=== PATIENT | female | born 1990 | race Caucasian/White ===

== ENCOUNTER → 2017-08-31 14:41 | Outpatient (CLI) | payer OTHER, SELFPAY ==
--- NOTE | 2017-08-31 14:48 | US_ITS ---
US transvaginal HISTORY: ITS.REASON: PELVIC PAIN ORDERING PHYSICIAN: Madi Anderson MD PATIENT AGE: 27 years COMPARISON: None FINDINGS: There has been prior hysterectomy. The vaginal cuff has an unremarkable appearance. The left ovary is 2.5 x 1.5 cm and contains small follicles measuring up to 6 mm. The right ovary is 3 x 1.8 cm also containing small follicles measuring up to 9 mm. No pelvic fluid evident. IMPRESSION: Bilateral ovarian follicles, prior hysterectomy
== END ==
PROVIDERS: Family Provider Nurse Practitioner Family; Visit Provider Obstetrics & Gynecology
DX: R10.2 Pelvic and perineal pain (principal)
CPT/HCPCS: 76830

== ENCOUNTER → 2017-09-17 11:01 | Outpatient (CLI) | payer OTHER, SELFPAY ==
[2017-09-17 11:04] LABS: Microscopic, Urine URINE MICROSCOPIC (MICROSCOPIC)
[2017-09-17 12:09] LABS: Basophils % 0.6 % (0.1-2.0); Eosinophils # 0.1 K/mm3 (0.0-0.4); Eosinophils % 1.3 % (0.1-12.0); Hematocrit 46.7 % (37.0-47.0); Hemoglobin 15.7 g/dL (12.2-16.2); Lymphocytes # 2.3 K/mm3 (0.7-4.5); Lymphocytes % 42.5 K/mm3 (10-50); Mean Corpuscular HGB Conc 33.6 g/dL (31.8-35.4); Mean Corpuscular Hemoglobin 29.2 pg (27.0-31.2); Mean Corpuscular Volume 87.1 fl (81-99); Mean Platelet Volume 8.8 fl (7.4-10.4); Monocytes # 0.3 K/mm3 (0.1-1.0); Monocytes % 4.6 % (1.7-9.3); Neutrophils # 2.7 K/mm3 (1.8-7.8); Platelet Count 202 K/mm3 (142-424); Red Blood Count 5.36 M/mm3 (4.20-5.40); Red Cell Distribution Width 13.1 % (11.5-17.5); White Blood Count 5.3 K/mm3 (4.8-10.8)
[2017-09-17 13:07] LABS: Appearance,Urine CLEAR (Clear); Bilirubin,Urine Negative (Negative); Blood, Urine Negative (Negative); Color,Urine YELLOW (Yellow); Glucose,Urine (UA) 3+ (Negative); Ketones,Urine 1+ (Negative); Leukocyte Esterase,Urine Negative (Negative); Nitrate,Urine Negative (Negative); Protein,Urine Negative (Negative); Specific Gravity, Urine <= 1.005 (1.005-1.030); Urobilinogen,Urine 0.2 EU/dl (0.2)
[2017-09-17 13:13] LABS: Alanine Aminotransferase 20 U/L (12-78); Albumin Level 3.5 gm/dL (3.4-5.0); Albumin/Globulin Ratio 1.3 (1.1-1.8); Alkaline Phosphatase 67 U/L (46-116); Anion Gap 13.1 mEq/L (5-15); Aspartate Amino Transferase 14 U/L (15-37); Bilirubin,Total 0.5 mg/dL (0.2-1.0); Blood Urea Nitrogen 7 mg/dL (7-18); Calcium 8.6 mg/dL (8.5-10.1); Carbon Dioxide 27 mmol/L (21.0-32.0); Chloride 100 mmol/L (98-107); Creatinine,Serum 0.75 mg/dL (0.55-1.02); Estimated Glomerular Filt Rate 93 ml/min (>60); GFR (African American) 112 ML/MIN (>60); Globulin 2.6 gm/dl (1.3-3.2); Potassium 4.1 mmoL/L (3.5-5.1); Sodium 136 mmol/L (136-145); Total Protein,Serum 6.1 gm/dL (6.4-8.2)
[2017-09-17 13:16] LABS: Glucose 494 mg/dL (74-106)
[2017-09-17 13:55] LABS: Bacteria,Urine Trace /lpf
[2017-09-17 15:38] LABS: Hemoglobin A1C 10.4 % (0.0-7.0)
== END ==
PROVIDERS: PCP Nurse Practitioner Family; Visit Provider Obstetrics & Gynecology
DX: E10.9 Type 1 diabetes mellitus without complications (principal); Z01.812 Encounter for preprocedural laboratory examination; R10.2 Pelvic and perineal pain
CPT/HCPCS: 36415; 80053; 81001; 83036; 85025

== ENCOUNTER → 2017-10-07 12:57 | Outpatient (CLI) | payer OTHER, SELFPAY ==
--- NOTE | 2017-10-07 12:58 | CA_ITS ---
PROCEDURE: 2-D M-mode and color Doppler study INDICATIONS FOR THE TEST: Chest painX COPD Heart Murmur Tobacco SmokingX Palpitations Fatigue Syncope Edema Hypertension Diabetes Mellitus Rheumatic Fever SOB MOCK Obesity Hyperlipidemia Family History HD Additional History PE PATIENT INFORMATION HEIGHT: 67 WEIGHT:123 GENDER: Female B/P:130/70 2-D/M-MODE INTERPRETATION: 2-D MEASUREMENTS OBSERVED VALUES IN CMS Right Ventricular Dimension (RVDd) 1.2 Interventricular Septum (Thickness)(IVsd) .6 Left Ventricular Internal Dimensions(LVIDd) 4.2 Left Ventricular Posterior Wall (Thickness)(LVPWd) .7 Aortic Root 1.9 Aortic Cusp Separation .8 Left Atrial Dimensions (LAD) 1.9 2D 1. Left atrium is normal size, left ventricle is normal size, there is no concentric left ventricular hypertrophy, visually estimated ejection fraction 55% with no obvious regional wall motion abnormality. 2. The right ventricular normal size and contractility. 3. The aortic, mitral and tricuspid valve are grossly normal. 4. The pulmonic valve is poorly visualized. 5. Trivial pericardial effusion noted. DOPPLER INTERROGATION: Doppler interrogation of the aortic, mitral and tricuspid valve reveals presence of trace mitral and tricuspid regurgitation, tricuspid regurgitant jet velocity insufficient for calculation of the right ventricular systolic pressure, diastolic parameters are within normal range. CONCLUSION: 1. Normal left ventricular size, preserved left ventricular systolic function, visually estimated ejection fraction 55% with no obvious regional wall motion abnormality, diastolic parameters are within normal range. 2. Trace mitral and tricuspid regurgitation 3. Trivial pericardial effusion noted.
--- NOTE | 2017-10-07 12:59 | NVE_ITS ---
Venous Exam Indications: 415.19 Other pulmonary embolism and infarction. IMPRESSIONS 1. There is no evidence of significant Reflux. 2. Deep vein thrombosis involving the right soleal History: PMH: Deep vein thrombosis of right calf 2 month history Complete lower extremity venous duplex evaluation. Doppler flow study including spectral analysis, color and muhammad scale imaging. Location: Vascular laboratory. Patient status: Outpatient. CRITICAL FINDINGS - Reported to: BENNIE - Read back and verified. - 10/07/17 - 1400 - Resolving DVT RIGHT CALF Tables: Venous flow and imaging: + + + + Location Overall Flow properties + + + + Right common femoral Patent Normal phasicity; spontaneous; normal augmentation; compressible + + + + Right saphenofemoral Patent Compressible junction + + + + Right profunda femoral Patent Compressible + + + + Right femoral Patent Normal phasicity; spontaneous; normal augmentation; compressible; no reflux + + + + Right greater saphenous Patent Normal phasicity; spontaneous; normal augmentation; compressible + + + + Right popliteal Patent Normal phasicity; spontaneous; normal augmentation; compressible + + + + Right posterior tibial Patent Compressible + + + + Right peroneal Patent Compressible + + + + Right gastrocnemius Patent Compressible + + + + Right soleal Partially occluded Partially compressible + + + + Left common femoral Patent Normal phasicity; spontaneous; normal augmentation;
--- NOTE | 2017-10-07 14:08 | US_ITS ---
US retroperitoneal comp HISTORY: ITS.REASON: CHEST PAIN,ALLI FACTOR 5 DEFICIENCY,DARIA SYNDROME ORDERING PHYSICIAN: Keyon Schmitt MD PATIENT AGE: 27 years COMPARISON: None FINDINGS: RIGHT KIDNEY:Unremarkable. Normal size and echogenicity. No hydronephrosis. 11 x 4 x 6 cm LEFT KIDNEY:Unremarkable. No hydronephrosis. Normal size and echogenicity. 10 x 5 x 5 cm OTHER FINDINGS: No other pertinent findings IMPRESSION: Negative bilateral renal ultrasound
== END ==
PROVIDERS: Family Provider Nurse Practitioner Family; PCP Nurse Practitioner Family; Visit Provider Internal Medicine
DX: D68.2 Hereditary deficiency of other clotting factors (principal); E13.10 Other specified diabetes mellitus with ketoacidosis without coma; Q87.89 Other specified congenital malformation syndromes, not elsewhere classified; Z72.0 Tobacco use; Z79.01 Long term (current) use of anticoagulants
CPT/HCPCS: 76770; 93306; 93970

== ENCOUNTER 2017-10-11 20:59 | Observation (INO) | payer OTHER, SELFPAY ==
[2017-10-11 21:11] VITALS: BP 126/83; PULSE 107; RESP 18; TEMP 36.6; O2SAT 97; BMI 19.3
[2017-10-11 21:44] LABS: Microscopic, Urine URINE MICROSCOPIC (MICROSCOPIC)
[2017-10-11 21:47] LABS: Appearance,Urine CLEAR (Clear); Bilirubin,Urine Negative (Negative); Blood, Urine 3+ (Negative); Color,Urine YELLOW (Yellow); Glucose,Urine (UA) 3+ (Negative); Ketones,Urine 3+ (Negative); Leukocyte Esterase,Urine Negative (Negative); Nitrate,Urine Negative (Negative); PH,Urine 5.5 (5.0-8.5); Protein,Urine Negative (Negative); Urobilinogen,Urine 0.2 EU/dl (0.2)
[2017-10-11 22:01] LABS: Bacteria,Urine Trace /lpf
[2017-10-11 22:07] LABS: Oxygen ROOM AIR %; Source R BRACHIAL
[2017-10-11 22:09] LABS: Basophils % 0.3 % (0.1-2.0); Eosinophils # 0.1 K/mm3 (0.0-0.4); Hemoglobin 17.6 g/dL (12.2-16.2); Lymphocytes # 1.8 K/mm3 (0.7-4.5); Lymphocytes % 23.3 K/mm3 (10-50); Mean Corpuscular HGB Conc 34.5 g/dL (31.8-35.4); Mean Corpuscular Hemoglobin 29.4 pg (27.0-31.2); Mean Corpuscular Volume 85.4 fl (81-99); Monocytes # 0.4 K/mm3 (0.1-1.0); Monocytes % 5.5 % (1.7-9.3); Neutrophils # 5.3 K/mm3 (1.8-7.8); Neutrophils % 69.9 % (37.0-80.0); Platelet Count 308 K/mm3 (142-424); Red Blood Count 5.98 M/mm3 (4.20-5.40); Red Cell Distribution Width 12.4 % (11.5-17.5); White Blood Count 7.6 K/mm3 (4.8-10.8)
[2017-10-11 22:11] LABS: ABG Base Excess -7.3 mmol/L (-2.4-2.3); ABG HCO3 17.6 mmhg (22.0-26.0); ABG Oxygen Saturation 96 % (90-100); ABG PCO2 29.4 mmhg (35.0-45.0); ABG PO2 79.2 mmhg (80-100); ABG TCO2 18.5 mmhg (23-27)
--- NOTE | 2017-10-11 22:20 | HMH.EDSOB ---
ED Disposition Clinical Impression: DKA (diabetic ketoacidoses) Qualifiers: Diabetes mellitus type: type 1 Diabetes mellitus complication detail: without coma Qualified Code(s): E10.10 - Type 1 diabetes mellitus with ketoacidosis without coma Disposition: Admitted As Inpatient Condition on Discharge: Good Referrals: Tika Dhillon APRN [Primary Care Provider] - - Critical Care Critical Care Time: No Attestation: On 10/11/17, the high probability of a clinically significant, sudden or life threatening deterioration of the following system(s) required my full and direct attention, intervention and personal management. The time I documented below is in addition to time spent performing reported procedures but includes the following listed in this critical care notation. Medical Decision Making - Medical Records Medical records reviewed: Yes: I reviewed the patient's medical records. Vital Signs: 10/11/17 21:11 Temperature 97.8 F Temperature Source Oral Pulse Rate [Right Radial] 107 H Respiratory Rate 18 Blood Pressure [Right Arm] 126/83 Blood Pressure Mean [Right Arm] 97 Blood Pressure Source [Right Arm] Automatic Cuff Blood Pressure Position [Right Arm] Sitting 02 Sat by Pulse Oximetry 97 Oxygen Delivery Method Room Air - Lab Data Lab results reviewed: Yes: I reviewed the patient's lab results. Lab Results 10/11/17 20:51: Troponin I < 0.02 10/11/17 21:38: Urine Color Yellow, Urine Appearance Clear, Urine pH 5.5, Ur Specific [place] 1.010, Urine Protein Negative, Urine Glucose (UA) 3+, Urine Ketones 3+, Urine Blood 3+, Urine Nitrate Negative, Urine Bilirubin Negative, Urine Urobilinogen 0.2, Ur Leukocyte Esterase Negative, Urine RBC 5-10, Urine WBC 3-5, Ur Squamous Epith Cells None, Urine Bacteria Trace 10/11/17 21:50: WBC 7.6, RBC 5.98 H, Hgb 17.6 H, Hct 51.0 H, MCV 85.4, MCH 29.4, MCHC 34.5, RDW 12.4, Plt Count 308, MPV 9.0, Neut % (Auto) 69.9, Lymph % (Auto) 23.3, [place] % (Auto) 5.5, Eos % (Auto) 1.0, Baso % (Auto) 0.3, Neut # (Auto) 5.3, Lymph # (Auto) 1.8, [place] # (Auto) 0.4, Eos # (Auto) 0.1, Baso # (Auto) 0.0 10/11/17 21:50: PT 9.9, INR 0.92, APTT 22.7 L 10/11/17 21:50: Sodium 129 L, Potassium 4.6, Chloride 90 L, Carbon Dioxide 18 L, Anion Gap 25.6 H, BUN 13, Creatinine 1.07 H, Estimated Creat Clear 70, Estimated GFR 62, Est GFR ( Amer) 74, Glucose 781 H*, Calcium 9.9, Total Bilirubin 0.7, AST 12 L, ALT 29, Alkaline Phosphatase 103, Total Protein 7.9 D, Albumin 4.2, Globulin 3.7 H, Albumin/Globulin Ratio 1.1, Acetone Level Small 10/11/17 21:50: Lactic Acid 2.4 H 10/11/17 22:00: Specimen Source R brachial, O2 % Room air, ABG pH 7.39, Oscar Test Not applicable Result diagrams: 10/11/17 21:50 10/11/17 21:50 Orders (Tests/Meds): ED MEDICATIONS Generic Name Dose Route Start Last Admin Trade Name Freq PRN Reason Stop Dose Admin Lactated Ringer's 1,000 mls @ 999 mls/hr 10/11/17 22:30 10/11/17 22:29 Lactated Ringer's 1000 Ml Bag IV 10/11/17 23:30 999 mls/hr .Q1H1M KAREEM Administration Discontinued Medications Generic Name Dose Route Start Last Admin Trade Name Freq PRN Reason Stop Dose Admin Sodium Chloride 1,000 mls @ 999 mls/hr 10/11/17 22:30 Sod Chlor 0.9% 1000ml Bag IV 10/11/17 23:30 .Q1H1M KAREEM Insulin Human Regular 6 unit 10/11/17 22:48 10/11/17 22:54 Humulin R Insulin 100 Units/Ml 10ml Vial 0.1 unit/kg (6 unit) 10/11/17 22:49 6 unit IV Administration ONCE ONE ORDERS Category Date Time Status fingerstick glucose [POC Glucose,Bedside] Stat Lab 10/11/17 21:30 Ordered Blood Culture Stat Micro 10/11/17 21:50 Received ABG [Arterial Blood Gas] Stat RT 10/11/17 21:31 Ordered Arterial Blood Gas Routine RT 10/11/17 22:00 Results - Physician Consults Physician Consulted: [email or web address] Reason -: Admission - Jasbir Inquiry Pt receiving controlled substance: No Resp/SOB HPI - General Chief Complaint: Shortness of Breath/Dyspnea Stat
[2017-10-11 22:24] LABS: Lactic Acid 2.4 mmol/L (0.4-2.0)
[2017-10-11 22:30] LABS: Acetone, Serum (Rapid) Small (None Detect)
[2017-10-11 22:38] LABS: Alanine Aminotransferase 29 U/L (12-78); Albumin Level 4.2 gm/dL (3.4-5.0); Albumin/Globulin Ratio 1.1 (1.1-1.8); Alkaline Phosphatase 103 U/L (46-116); Anion Gap 25.6 mEq/L (5-15); Aspartate Amino Transferase 12 U/L (15-37); Bilirubin,Total 0.7 mg/dL (0.2-1.0); Blood Urea Nitrogen 13 mg/dL (7-18); Calcium 9.9 mg/dL (8.5-10.1); Carbon Dioxide 18 mmol/L (21.0-32.0); Chloride 90 mmol/L (98-107); Creatinine Clearance Estimated 70 mL/min (0-300); Creatinine,Serum 1.07 mg/dL (0.55-1.02); Estimated Glomerular Filt Rate 62 ml/min (>60); GFR (African American) 74 ML/MIN (>60); Globulin 3.7 gm/dl (1.3-3.2); Potassium 4.6 mmoL/L (3.5-5.1); Sodium 129 mmol/L (136-145); Total Protein,Serum 7.9 gm/dL (6.4-8.2)
[2017-10-11 22:41] LABS: Glucose 781 mg/dL (74-106)
[2017-10-11 22:41] LABS: Troponin I < 0.02 ng/ml (0.00-0.06)
[2017-10-11 22:52] LABS: Activated Partial Thrombo Time 22.7 seconds (23.6-34.0); INR 0.92 (0.9-1.1); Prothrombin Time 9.9 seconds (9.4-11.8)
--- NOTE | 2017-10-11 23:20 | XR_ITS ---
XR chest portable HISTORY: Shortness of breath ITS.REASON: sob ORDERING PHYSICIAN: Joe Lopes MD PATIENT AGE: 27 years COMPARISON: 03/22/2017 FINDINGS: The cardiomediastinal silhouette and pulmonary vascularity are within normal limits. The lungs are clear without infiltrates, suspicious nodules, or pleural effusions. No acute bony abnormalities. IMPRESSION: Negative chest, no acute finding
[2017-10-12] VITALS (11 sets, daily range): BP systolic 92–133; BP diastolic 54–79; PULSE 60–105; RESP 16–18; TEMP 36.4–36.8; O2SAT 93–97; BMI 19.3
[2017-10-12 02:02] LABS: Reflex Lactic Add Lactic Reflex
[2017-10-12 02:36] LABS: Glucose,Random 464 mg/dL (70-110)
[2017-10-12 03:50] LABS: Lactic Acid Follow Up (RFLX 1) 2.4 (0.4-2.0)
[2017-10-12 04:24] LABS: Reflex Lactic (2 hrs) Add Lactic Reflex
--- NOTE | 2017-10-12 05:15 | PC.NURSE ---
Patient resting in bed. Hourly fingersticks being completed. Results trending down. Insulin drip at 4ml/hr. A&O x3. No sign or symptoms of distress noted. Denies any discomfort at this time. No complaints voiced at this time.
[2017-10-12 05:17] LABS: Basophils % 0.3 % (0.1-2.0); Eosinophils # 0.1 K/mm3 (0.0-0.4); Eosinophils % 1.5 % (0.1-12.0); Hematocrit 42.8 % (37.0-47.0); Lymphocytes % 38.1 K/mm3 (10-50); Mean Corpuscular HGB Conc 35.5 g/dL (31.8-35.4); Mean Corpuscular Hemoglobin 29.3 pg (27.0-31.2); Mean Corpuscular Volume 82.4 fl (81-99); Mean Platelet Volume 8.1 fl (7.4-10.4); Monocytes # 0.4 K/mm3 (0.1-1.0); Monocytes % 5.4 % (1.7-9.3); Neutrophils # 4.3 K/mm3 (1.8-7.8); Neutrophils % 54.7 % (37.0-80.0); Platelet Count 277 K/mm3 (142-424); Red Blood Count 5.19 M/mm3 (4.20-5.40); Red Cell Distribution Width 12.2 % (11.5-17.5); White Blood Count 7.8 K/mm3 (4.8-10.8)
[2017-10-12 05:51] LABS: Hemoglobin 15.3 g/dL (12.2-16.2)
[2017-10-12 06:04] LABS: Anion Gap 11.3 mEq/L (5-15); Blood Urea Nitrogen 10 mg/dL (7-18); Carbon Dioxide 28 mmol/L (21.0-32.0); Chloride 102 mmol/L (98-107); Creatinine Clearance Estimated 103 mL/min (0-300); Creatinine,Serum 0.72 mg/dL (0.55-1.02); Estimated Glomerular Filt Rate 97 ml/min (>60); GFR (African American) 118 ML/MIN (>60); Glucose 323 mg/dL (74-106); Potassium 3.3 mmoL/L (3.5-5.1); Sodium 138 mmol/L (136-145)
[2017-10-12 06:15] LABS: Acetone, Serum (Rapid) None Detected (None Detect)
--- NOTE | 2017-10-12 07:12 | PC.NURSE ---
Notified Dr. Lopes of serum acetone level being negative.
--- NOTE | 2017-10-12 09:21 | HMH.HP ---
*Admission Date: 10/12/17 *Chief complaint: elevated glucose and shortness of breath *History of present illness: 27 year old female with a history of type 1 diabetes presented to the ED with elevated glucose and shortness of breath. In the ED, her glucose was >700. Serum acetone was positive. She was started on IVF's and insulin gtt per protocol. Patient was admitted for IV insulin and further evaluation. Serum acetone was negative this morning. Patient reports an episode of vomiting yesterday and diarrhea through the night. No fevers. No abdominal pain. [facility] History I have reviewed the patient's past medical history: Yes Medical History: Reports:: Deep Vein Thrombosis, Diabetes Mellitus Type 1 Denies:: Cancer, Diabetes Mellitus Type 2, MRSA Other Surgeries: Yes: Hysterectomy-Partial, Other Amputation: No Fractures: No - *Social History Educational Level: Completed High School Smoking Status: Current every day smoker Tobacco Type: cigarettes Alcohol Intake: never Substance Use Type: denies use Occupational Status: unemployed Housing: house Household Members: spouse, children - Psychiatric History Expresses thoughts of harming self/others: None Suicide Plan Description: No Plan *Family Hx:: Cancer, Hypertension, Diabetes Review of Systems - Review of Systems Review of systems:: pertinent systems reviewed and negative unless documented below - Constitutional Reports weakness - *Respiratory Reports shortness of breath - *Gastrointestinal Reports loose stools, Reports vomiting - *Neurologic Denies seizure-like activity - Endocrine Comments: elevated blood sugar Meds Home Medications Medication Instructions Recorded Confirmed Type albuterol sulfate HFA 90 1 puff INHALATION Q6H 09/09/17 10/11/17 History mcg/actuation aerosol inhaler gabapentin 600 mg tablet 600 mg PO TID 09/09/17 10/11/17 History hydroxyzine pamoate 25 mg capsule 25 mg PO QHS PRN cap 09/09/17 10/11/17 History insulin glargine (U-100) 100 1 unit SUB-Q QDAY 09/09/17 10/11/17 History unit/mL (3 mL) subcutaneous pen insulin lispro protamine-lispro 10 unit SUB-Q QDAY 09/09/17 10/11/17 History 100 unit/mL (75-25) subcutaneous susp paroxetine 30 mg tablet 30 mg PO QDAY 09/09/17 10/11/17 History quetiapine ER 50 mg 150 mg PO QDAY 09/09/17 10/11/17 History tablet,extended release 24 hr sumatriptan 25 mg tablet 25 mg PO ONCE 09/09/17 10/11/17 History Allergies Allergy/AdvReac Type Severity Reaction Status Date / Time tramadol [TRAMADOL] Allergy Severe Swelling Verified 10/11/17 21:19 of Lip/Tongue/Throat butalbital [BUTALBITAL] Allergy Unknown Verified 10/11/17 21:19 caffeine [From FIORICET] Allergy Unknown Verified 10/11/17 21:19 codeine [CODEINE] Allergy Unknown Verified 10/11/17 21:19 iodine [IODINE] Allergy Unknown Verified 10/11/17 21:19 ketorolac [KETOROLAC] Allergy Unknown Verified 10/11/17 21:19 Penicillins [PENICILLINS] Allergy Unknown Verified 10/11/17 21:19 povidone-iodine Allergy Unknown Verified 10/11/17 21:19 [From BETADINE] soap [From BETADINE] Allergy Unknown Verified 10/11/17 21:19 ADHESIVES Allergy Unknown Uncoded 08/10/17 14:51 Exam Vital signs and Labs for Last 24 Hours: Temp Pulse Resp BP Pulse Ox 98.3 F 69 16 92/70 96 10/12/17 08:00 10/12/17 08:03 10/12/17 08:03 10/12/17 08:03 10/12/17 08:03 Laboratory Results - last 24 hr 10/12/17 02:15: Lactic Acid Fup @ 4Hr 2.4 H 10/12/17 02:15: Random Glucose 464 H 10/12/17 04:30: WBC 7.8, RBC 5.19, Hgb 15.3 D, Hct 42.8, MCV 82.4, MCH 29.3, MCHC 35.5 H, RDW 12.2, Plt Count 277, MPV 8.1, Neut % (Auto) 54.7, Lymph % (Auto) 38.1, [place] % (Auto) 5.4, Eos % (Auto) 1.5, Baso % (Auto) 0.3, Neut # (Auto) 4.3, Lymph # (Auto) 3.0, [place] # (Auto) 0.4, Eos # (Auto) 0.1, Baso # (Auto) 0.0 10/12/17 04:30: Sodium 138, Potassium 3.3 L D, Chloride 102, Carbon Dioxide 28 D, Anion Gap 11.3, BUN 10, Creatinine 0.72 D, Estimated Cr
--- NOTE | 2017-10-12 09:25 | P.HP_ITS ---
*Admission Date: 10/12/17 *Chief complaint: elevated glucose and shortness of breath *History of present illness: 27 year old female with a history of type 1 diabetes presented to the ED with elevated glucose and shortness of breath. In the ED, her glucose was >700. Serum acetone was positive. She was started on IVF's and insulin gtt per protocol. Patient was admitted for IV insulin and further evaluation. Serum acetone was negative this morning. Patient reports an episode of vomiting yesterday and diarrhea through the night. No fevers. No abdominal pain. [facility] History I have reviewed the patient's past medical history: Yes Medical History: Reports:: Deep Vein Thrombosis, Diabetes Mellitus Type 1 Denies:: Cancer, Diabetes Mellitus Type 2, MRSA Other Surgeries: Yes: Hysterectomy-Partial, Other Amputation: No Fractures: No - *Social History Educational Level: Completed High School Smoking Status: Current every day smoker Tobacco Type: cigarettes Alcohol Intake: never Substance Use Type: denies use Occupational Status: unemployed Housing: house Household Members: spouse, children - Psychiatric History Expresses thoughts of harming self/others: None Suicide Plan Description: No Plan *Family Hx:: Cancer, Hypertension, Diabetes Review of Systems - Review of Systems Review of systems:: pertinent systems reviewed and negative unless documented below - Constitutional Reports weakness - *Respiratory Reports shortness of breath - *Gastrointestinal Reports loose stools, Reports vomiting - *Neurologic Denies seizure-like activity - Endocrine Comments: elevated blood sugar Meds Home Medications Medication Instructions Recorded Confirmed Type albuterol sulfate HFA 90 1 puff INHALATION Q6H 09/09/17 10/11/17 History mcg/actuation aerosol inhaler gabapentin 600 mg tablet 600 mg PO TID 09/09/17 10/11/17 History hydroxyzine pamoate 25 mg capsule 25 mg PO QHS PRN cap 09/09/17 10/11/17 History insulin glargine (U-100) 100 1 unit SUB-Q QDAY 09/09/17 10/11/17 History unit/mL (3 mL) subcutaneous pen insulin lispro protamine-lispro 10 unit SUB-Q QDAY 09/09/17 10/11/17 History 100 unit/mL (75-25) subcutaneous susp paroxetine 30 mg tablet 30 mg PO QDAY 09/09/17 10/11/17 History quetiapine ER 50 mg 150 mg PO QDAY 09/09/17 10/11/17 History tablet,extended release 24 hr sumatriptan 25 mg tablet 25 mg PO ONCE 09/09/17 10/11/17 History Allergies Allergy/AdvReac Type Severity Reaction Status Date / Time tramadol [TRAMADOL] Allergy Severe Swelling Verified 10/11/17 21:19 of Lip/Tongue/Throat butalbital [BUTALBITAL] Allergy Unknown Verified 10/11/17 21:19 caffeine [From FIORICET] Allergy Unknown Verified 10/11/17 21:19 codeine [CODEINE] Allergy Unknown Verified 10/11/17 21:19 iodine [IODINE] Allergy Unknown Verified 10/11/17 21:19 ketorolac [KETOROLAC] Allergy Unknown Verified 10/11/17 21:19 Penicillins [PENICILLINS] Allergy Unknown Verified 10/11/17 21:19 povidone-iodine Allergy Unknown Verified 10/11/17 21:19 [From BETADINE] soap [From BETADINE] Allergy Unknown Verified 10/11/17 21:19 ADHESIVES Allergy Unknown Uncoded 08/10/17 14:51 Exam Vital signs and Labs for Last 24 Hours: Temp Pulse Resp BP Pulse Ox 98.3 F 69 16 92/70 96 10/12/17 08:00
--- NOTE | 2017-10-12 10:11 | P.CONPHA_ITS ---
[facility] Pharmacy VTE Monitoring - Patient Demographics Admission date: 10/12/17 Report Date: 10/12/17 Time: 10:10 Allergies/Adverse Reactions: Patient Allergies tramadol [TRAMADOL] Allergy (Severe, Verified 10/11/17 21:19) Swelling of Lip/Tongue/Throat butalbital [BUTALBITAL] Allergy (Unknown, Verified 10/11/17 21:19) caffeine [From FIORICET] Allergy (Unknown, Verified 10/11/17 21:19) codeine [CODEINE] Allergy (Unknown, Verified 10/11/17 21:) iodine [IODINE] Allergy (Unknown, Verified 10/11/17 21:) ketorolac [KETOROLAC] Allergy (Unknown, Verified 10/11/17 21:) Penicillins [PENICILLINS] Allergy (Unknown, Verified 10/11/17:) povidone-iodine [From BETADINE] Allergy (Unknown, Verified 10/11/17 21:) soap [From BETADINE] Allergy (Unknown, Verified 10/11/17:) ADHESIVES Allergy (Unknown, Uncoded 08/10/17 14:51) Height: 1.7 m Weight: 51.483 kg Patient Problems: Current Active Problems DKA (diabetic ketoacidoses) (Acute) - VTE Risk Labs: VTE Related Lab Results Hgb 15.3 g/dL (12.2-16.2) D 10/12/17 04:30 Hct 42.8 % (37.0-47.0) 10/12/17 04:30 Plt Count 277 K/mm3 (142-424) 10/12/17 04:30 PT 9.9 seconds (9.4-11.8) 10/11/17 21:50 INR 0.92 (0.9-1.1) 10/11/17 21:50 APTT 22.7 seconds (23.6-34.0) L 10/11/17 21:50 BUN 10 mg/dL (7-18) 10/12/17 04:30 Creatinine 0.72 mg/dL (0.55-1.02) D 10/12/17 04:30 Estimated Creat Clear 103 mL/min (0-300) 10/12/17 04:30 VTE Score: 1 VTE Risk Level: Very Low Risk Clinical Trial Participant: No - Prophylaxis VTE Prophylaxis Ordered?: Yes Types of VTE Prophylaxis: TEDS Knee High
--- NOTE | 2017-10-12 18:42 | PC.NURSE ---
PATIENT IS RESTING IN BED AT THIS TIME. SHE C/O PAIN IN HER HEAD AND BACK 8/10 AT ALL TIMES. SHE IS ALSO C/O NAUSEA UNRELIEVED BY ZOFRAN GIVEN PER MAR. BLOOD SUGARS ARE STILL RUNNING EXTREMELY HIGH 350-420 WITH HIGH INTENSITY SSI COVERAGE. LUNGS ARE CTA. BS ARE ACTIVE. CALL LIGHT WITHIN REACH WILL CONTINUE TO MONITOR
[2017-10-13 04:00] VITALS: BP 107/59; PULSE 62; RESP 17; TEMP 36.7; O2SAT 98
--- NOTE | 2017-10-13 04:30 | PC.NURSE ---
PT REQUESTED PHENERGAN FOR NAUSEA EARLY IN SHIFT, ASKED ABOUT HER COUMADIN. Dr. TAVERA NOTIFED OF BOTH. NO NEW ORDERS RECEIVED. PT HAS SLEPT.
[2017-10-13 07:12] LABS: ABG PH 7.39 mmol/L (7.35-7.45)
[2017-10-13 07:17] LABS: Anion Gap 14.1 mEq/L (5-15); Blood Urea Nitrogen 9 mg/dL (7-18); Carbon Dioxide 24 mmol/L (21.0-32.0); Chloride 105 mmol/L (98-107); Creatinine Clearance Estimated 107 mL/min (0-300); Creatinine,Serum 0.64 mg/dL (0.55-1.02); Estimated Glomerular Filt Rate 111 ml/min (>60); GFR (African American) 135 ML/MIN (>60); Glucose 381 mg/dL (74-106); Potassium 4.1 mmoL/L (3.5-5.1); Sodium 139 mmol/L (136-145)
[2017-10-13 07:57] VITALS: BP 115/66; PULSE 74; RESP 16; TEMP 36.6; O2SAT 95
--- NOTE | 2017-10-13 08:19 | HMH.DCSUM ---
General - General Admission date: 10/12/17 Discharge date: 10/13/17 HPI HPI: 27 year old female with a history of type 1 diabetes presented to the ED with elevated glucose and shortness of breath. In the ED, her glucose was >700. Serum acetone was positive. She was started on IVF's and insulin gtt per protocol. Patient was admitted for IV insulin and further evaluation. Serum acetone was negative this morning. Patient reports an episode of vomiting yesterday and diarrhea through the night. No fevers. No abdominal pain. Objective Vital signs: Temp Pulse Resp BP Pulse Ox 97.8 F 74 16 115/66 95 10/13/17 07:57 10/13/17 07:57 10/13/17 07:57 10/13/17 07:57 10/13/17 07:57 Narrative: This morning patient is alert, pleasant, talkative, mildly nauseated but able to eat breakfast. Lungs are clear, heart rate regular, abdomen is soft and nontender. Other than her previously noted hand/radial deformities extremity exam is unremarkable with warm and well-perfused extremities. She has normal cranial nerves. Hospital Course Hospital Course: She was admitted, insulin drip was given overnight, she cleared her acetones the next day. She was then treated with high intensity sliding scale and re-fed. She tolerated this well. This morning she was doing well, eating breakfast, had no complaints. Interestingly she has been treated by the cardiology service here for a DVT and has been prescribed warfarin. She has not had any kind of elevation of INR levels, with compliance being a?. She has maintained that she takes 5 mg a day. Her graph from a diabetes perspective she ready to be discharged. I have asked cardiology service see her before the discharge so that she can resume warfarin therapy and follow-up per their service as wished. I have asked her to follow-up with her regular practitioner in [place]. She tells me that she does not have regular appointment scheduled with his practitioner and is just told call when I need something. I would think that she would be better served to have at least every 2 month appointments to track medication use, compliance and overall health given her severe diabetes and multiple admissions for DKA. She does have an appointment with [facility] endocrinology in October and I have encouraged her to keep this appointment. She tells me that she has all of her insulin that she needs at home. As a result no prescriptions will be given except for anything that the cardiology service might be interested in. Results Labs on day of discharge: Labs from last 24 hours 10/13/17 06:10 Sodium 139 Potassium 4.1 D Chloride 105 Carbon Dioxide 24 Anion Gap 14.1 BUN 9 Creatinine 0.64 Estimated Creat Clear 107 Estimated GFR 111 Est GFR ( Amer) 135 Glucose 381 H Discharge Plan - Patient Discharge Instructions ACTIVITY: Continue current activity Patient Instructions: DI for Diabetic Ketoacidosis - Follow up Plan Follow up with: Tika Dhillon APRN [Primary Care Provider] - 10/18/17 Disposition: Home, Self-Shelter Medications: Home Medications Medication Instructions Recorded Confirmed Type albuterol sulfate HFA 90 1 puff INHALATION Q6H 09/09/17 10/11/17 History mcg/actuation aerosol inhaler hydroxyzine pamoate 25 mg capsule 25 mg PO QID cap 09/09/17 10/12/17 History insulin lispro protamine-lispro 10 unit SUB-Q DAILY 09/09/17 10/12/17 History 100 unit/mL (75-25) subcutaneous susp paroxetine 30 mg tablet 30 mg PO DAILY 09/09/17 10/12/17 History quetiapine ER 50 mg 150 mg PO HS 09/09/17 10/12/17 History tablet,extended release 24 hr sumatriptan 25 mg tablet 25 mg PO NEEDED PRN 09/09/17 10/12/17 History Buprenorphine HCl/Naloxone HCl 1.75 sgl PO DAILY 10/12/17 10/12/17 History [Buprenorphin-Naloxon 8-2 mg Sl] Gabapentin [Gabapentin 800mg Tab] 800 mg PO TID 10/12/17 10/12/17 History Insulin Glargine,Hum.rec.anl
--- NOTE | 2017-10-13 08:23 | P.DS_ITS ---
General - General Admission date: 10/12/17 Discharge date: 10/13/17 HPI HPI: 27 year old female with a history of type 1 diabetes presented to the ED with elevated glucose and shortness of breath. In the ED, her glucose was >700. Serum acetone was positive. She was started on IVF's and insulin gtt per protocol. Patient was admitted for IV insulin and further evaluation. Serum acetone was negative this morning. Patient reports an episode of vomiting yesterday and diarrhea through the night. No fevers. No abdominal pain. Objective Vital signs: Temp Pulse Resp BP Pulse Ox 97.8 F 74 16 115/66 95 10/13/17 07:57 10/13/17 07:57 10/13/17 07:57 10/13/17 07:57 10/13/17 07:57 Narrative: This morning patient is alert, pleasant, talkative, mildly nauseated but able to eat breakfast. Lungs are clear, heart rate regular, abdomen is soft and nontender. Other than her previously noted hand/radial deformities extremity exam is unremarkable with warm and well-perfused extremities. She has normal cranial nerves. Hospital Course Hospital Course: She was admitted, insulin drip was given overnight, she cleared her acetones the next day. She was then treated with high intensity sliding scale and re- fed. She tolerated this well. This morning she was doing well, eating breakfast, had no complaints. Interestingly she has been treated by the cardiology service here for a DVT and has been prescribed warfarin. She has not had any kind of elevation of INR levels, with compliance being a?. She has maintained that she takes 5 mg a day. Her graph from a diabetes perspective she ready to be discharged. I have asked cardiology service see her before the discharge so that she can resume warfarin therapy and follow-up per their service as wished. I have asked her to follow-up with her regular practitioner in [place]. She tells me that she does not have regular appointment scheduled with his practitioner and is just told call when I need something. I would think that she would be better served to have at least every 2 month appointments to track medication use, compliance and overall health given her severe diabetes and multiple admissions for DKA. She does have an appointment with [facility] endocrinology in October and I have encouraged her to keep this appointment. She tells me that she has all of her insulin that she needs at home. As a result no prescriptions will be given except for anything that the cardiology service might be interested in. Results Labs on day of discharge: Labs from last 24 hours 10/13/17 06:10 Sodium 139 Potassium 4.1 D Chloride 105 Carbon Dioxide 24 Anion Gap 14.1 BUN 9 Creatinine 0.64 Estimated Creat Clear 107 Estimated GFR 111 Est GFR ( Amer) 135 Glucose 381 H Discharge Plan - Patient Discharge Instructions ACTIVITY: Continue current activity Patient Instructions: DI for Diabetic Ketoacidosis - Follow up Plan Follow up with: Tika Dhillon APRN [Primary Care Provider] - 10/18/17 Disposition: Home, Self-Long-Term Medications: Home Medications Medication Instructions Recorded Confirmed Type albuterol sulfate HFA 90 1 puff INHALATION Q6H 09/09/17 10/11/17 History mcg/actuation aerosol inhaler hydroxyzine pamoate 25 mg capsule 25 mg PO QID cap 09/09/17 10/12/17 History insulin li
--- NOTE | 2017-10-13 09:25 | HMH.CNCARD ---
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 Essentially normal renal ultrasound, 09/2017. 2. Tobacco use 3. 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 A. Lower extremity venous Doppler 09/2017 shows continued right soleus DVT. B. Coumadin therapy subtherapeutic 09/2017, with poor compliance with Coumadin clinic due to recurrent admissions for DKA. C. Echocardiogram essentially normal, 09/2017 D. Renal ultrasound essentially normal, 09/2017 4. Type 1 diabetes mellitus with recurrent DKA History of present illness: 27-year-old white female admitted to the hospital for diabetic ketoacidosis. Patient has significantly improved overnight to the point that she will be discharged later today. Cardiology asked to see while she was in the hospital for preop evaluation for upcoming partial hysterectomy (patient has had a previous partial hysterectomy in the past but has recurrent bleeding). Patient denies any chest pain, pressure or tightness. She does continue to smoke. [facility] History Medical History: Reports:: Deep Vein Thrombosis, Diabetes Mellitus Type 1 Denies:: Cancer, Diabetes Mellitus Type 2, MRSA Other Surgeries: Yes: Hysterectomy-Partial, Other Amputation: No Fractures: No - *Social History Educational Level: Completed High School Smoking Status: Current every day smoker Tobacco Type: cigarettes Alcohol Intake: never Substance Use Type: denies use Occupational Status: unemployed Housing: house Household Members: spouse, children - Psychiatric History Expresses thoughts of harming self/others: None Suicide Plan Description: No Plan *Family Hx:: Cancer, Hypertension, Diabetes Meds Home Medications Medication Instructions Recorded Confirmed Type albuterol sulfate HFA 90 1 puff INHALATION Q6H 09/09/17 10/11/17 History mcg/actuation aerosol inhaler hydroxyzine pamoate 25 mg capsule 25 mg PO QID cap 09/09/17 10/12/17 History insulin lispro protamine-lispro 10 unit SUB-Q DAILY 09/09/17 10/12/17 History 100 unit/mL (75-25) subcutaneous susp paroxetine 30 mg tablet 30 mg PO DAILY 09/09/17 10/12/17 History quetiapine ER 50 mg 150 mg PO HS 09/09/17 10/12/17 History tablet,extended release 24 hr sumatriptan 25 mg tablet 25 mg PO NEEDED PRN 09/09/17 10/12/17 History Buprenorphine HCl/Naloxone HCl 1.75 sgl PO DAILY 10/12/17 10/12/17 History [Buprenorphin-Naloxon 8-2 mg Sl] Gabapentin [Gabapentin 800mg Tab] 800 mg PO TID 10/12/17 10/12/17 History Insulin Glargine,Hum.rec.anlog 50 units SQ DAILY 10/12/17 10/12/17 History [Basaglar Pilipen U-100] Melatonin [Melatonin] 2 tab PO HS 10/12/17 10/12/17 History Warfarin Sodium [Warfarin Sodium] 5 mg PO DIRECTED 10/12/17 10/12/17 History Allergies Allergy/AdvReac Type Severity Reaction Status Date / Time tramadol [TRAMADOL] Allergy Severe Swelling Verified 10/11/17 21:19 of Lip/Tongue/Throat butalbital [BUTALBITAL] Allergy Unknown Verified 10/11/17 21:19 caffeine [From FIORICET] Allergy Unknown Verified 10/11/17 21:19 codeine [CODEINE] Allergy Unknown Verified 10/11/17 21:19 iodine [IODINE] Allergy Unknown Verified 10/11/17 21:19 ketorolac [KETOROLAC] Allergy Unknown Verified 10/11/17 21:19 Penicillins [PENICILLINS] Allergy Unknown Verified 10/11/17 21:19 povidone-iodine Allergy Unknown Verified 10/11/17 21:19 [From BETADINE] soap [From BETADINE] Allergy Unknown Verified 10/11/17 21:19 ADHESIVES Allergy Unknown Uncoded 08/10/17 14:51 Review of Systems - *Cardiovascular Denies chest pain, Denies shortness of breath - *Respiratory Denies shortness of breath - *Gastrointestinal Denies abdominal pain - *Genitourinary Reports abnormal vaginal bleed
[2017-10-21 14:59] LABS: POC Glucose,Bedside 590 mg/dL (70-110)
[2017-10-21 15:00] LABS: POC Glucose,Bedside > 600 mg/dL (70-110)
[2017-10-21 15:00] LABS: POC Glucose,Bedside 204 mg/dL (70-110)
[2017-10-21 15:00] LABS: POC Glucose,Bedside 449 mg/dL (70-110)
[2017-10-21 15:00] LABS: POC Glucose,Bedside 272 mg/dL (70-110)
[2017-10-21 15:00] LABS: POC Glucose,Bedside 412 mg/dL (70-110)
[2017-10-21 15:00] LABS: POC Glucose,Bedside 512 mg/dL (70-110)
[2017-10-21 15:00] LABS: POC Glucose,Bedside 391 mg/dL (70-110)
[2017-10-21 15:00] LABS: POC Glucose,Bedside 333 mg/dL (70-110)
[2017-10-21 15:00] LABS: POC Glucose,Bedside 237 mg/dL (70-110)
[2017-10-21 15:00] LABS: POC Glucose,Bedside 417 mg/dL (70-110)
[2017-10-21 15:01] LABS: POC Glucose,Bedside 223 mg/dL (70-110)
[2017-10-21 15:02] LABS: POC Glucose,Bedside 292 mg/dL (70-110)
[2017-10-21 15:02] LABS: POC Glucose,Bedside 390 mg/dL (70-110)
--- NOTE | 2017-11-04 09:48 | P.CONS_ITS ---
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 Essentially normal renal ultrasound, 09/2017. 2. Tobacco use 3. 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 A. Lower extremity venous Doppler 09/2017 shows continued right soleus DVT. B. Coumadin therapy subtherapeutic 09/2017, with poor compliance with Coumadin clinic due to recurrent admissions for DKA. C. Echocardiogram essentially normal, 09/2017 D. Renal ultrasound essentially normal, 09/2017 4. Type 1 diabetes mellitus with recurrent DKA History of present illness: 27-year-old white female admitted to the hospital for diabetic ketoacidosis. Patient has significantly improved overnight to the point that she will be discharged later today. Cardiology asked to see while she was in the hospital for preop evaluation for upcoming partial hysterectomy (patient has had a previous partial hysterectomy in the past but has recurrent bleeding). Patient denies any chest pain, pressure or tightness. She does continue to smoke. [facility] History Medical History: Reports:: Deep Vein Thrombosis, Diabetes Mellitus Type 1 Denies:: Cancer, Diabetes Mellitus Type 2, MRSA Other Surgeries: Yes: Hysterectomy-Partial, Other Amputation: No Fractures: No - *Social History Educational Level: Completed High School Smoking Status: Current every day smoker Tobacco Type: cigarettes Alcohol Intake: never Substance Use Type: denies use Occupational Status: unemployed Housing: house Household Members: spouse, children - Psychiatric History Expresses thoughts of harming self/others: None Suicide Plan Description: No Plan *Family Hx:: Cancer, Hypertension, Diabetes Meds Home Medications Medication Instructions Recorded Confirmed Type albuterol sulfate HFA 90 1 puff INHALATION Q6H 09/09/17 10/11/17 History mcg/actuation aerosol inhaler hydroxyzine pamoate 25 mg capsule 25 mg PO QID cap 09/09/17 10/12/17 History insulin lispro protamine-lispro 10 unit SUB-Q DAILY 09/09/17 10/12/17 History 100 unit/mL (75-25) subcutaneous susp paroxetine 30 mg tablet 30 mg PO DAILY 09/09/17 10/12/17 History quetiapine ER 50 mg 150 mg PO HS 09/09/17 10/12/17 History tablet,extended release 24 hr sumatriptan 25 mg tablet 25 mg PO NEEDED PRN 09/09/17 10/12/17 History Buprenorphine HCl/Naloxone HCl 1.75 sgl PO DAILY 10/12/17 10/12/17 History [Buprenorphin-Naloxon 8-2 mg Sl] Gabapentin [Gabapentin 800mg Tab] 800 mg PO TID 10/12/17 10/12/17 History Insulin Glargine,Hum.rec.anlog 50 units SQ DAILY 10/12/17 10/12/17 History [Ionaaglelieser Kamiaugustinpen U-100] Melatonin [Melatonin] 2 tab PO HS 10/12/17 10/12/17 History Warfarin Sodium [Warfarin Sodium] 5 mg PO DIRECTED 10/12/17 10/12/17 History Allergies Allergy/AdvReac Type Severity Reaction Status Date / Time tramadol [TRAMADOL] Allergy Severe Swelling Verified 10/11/17 21:19 of Lip/Tongue/Throat butalbital [BUTALBITAL] Allergy Unknown Verified 10/11/17 21:19 caffeine [From FIORICET] Allergy Unknown Verified 10/11/17 21:19 codeine [CODEINE] Allergy Unknown Verified 10/11/17 21:19 iodine [IODINE] Allergy Unknown Verified 10/11/17 21:19 ketorolac [KETOROLAC] Al
== END 2017-10-13 14:45 | disposition home or self-care (01) ==
LOC: ER 23:22 → 2ND 10-12 01:20
PROVIDERS: Admitting Provider Internal Medicine Adolescent Medicine; Emergency Provider Emergency Medicine; Family Provider Nurse Practitioner Family; PCP Nurse Practitioner Family; Visit Provider Internal Medicine Adolescent Medicine
DX: E10.10 Type 1 diabetes mellitus with ketoacidosis without coma (principal); Z79.01 Long term (current) use of anticoagulants; Z72.0 Tobacco use; Z83.3 Family history of diabetes mellitus; R06.02 Shortness of breath; Z80.9 Family history of malignant neoplasm, unspecified; Z82.49 Family history of ischemic heart disease and other diseases of the circulatory system
CPT/HCPCS: 36415; 71045; 80048; 80053; 81001; 82009; 82803; 82947; 82962; 83605; 84484; 85025; 85610; 85730; 87040; 94640; 96365; 96375; 99284; G0378; J2405

== ENCOUNTER → 2017-10-18 16:00 | Outpatient (CLI) | payer OTHER, SELFPAY ==
[2017-10-18 16:04] LABS: Microscopic, Urine URINE MICROSCOPIC (MICROSCOPIC)
[2017-10-18 16:28] LABS: Basophils % 0.5 % (0.1-2.0); Eosinophils # 0.1 K/mm3 (0.0-0.4); Eosinophils % 1.4 % (0.1-12.0); Hematocrit 48.7 % (37.0-47.0); Lymphocytes # 2.1 K/mm3 (0.7-4.5); Mean Corpuscular HGB Conc 32.9 g/dL (31.8-35.4); Mean Corpuscular Hemoglobin 28.5 pg (27.0-31.2); Mean Corpuscular Volume 86.4 fl (81-99); Mean Platelet Volume 8.8 fl (7.4-10.4); Monocytes # 0.3 K/mm3 (0.1-1.0); Monocytes % 3.9 % (1.7-9.3); Neutrophils # 5.8 K/mm3 (1.8-7.8); Neutrophils % 69.2 % (37.0-80.0); Platelet Count 242 K/mm3 (142-424); Red Blood Count 5.63 M/mm3 (4.20-5.40); Red Cell Distribution Width 12.5 % (11.5-17.5); White Blood Count 8.4 K/mm3 (4.8-10.8)
[2017-10-18 16:45] LABS: Appearance,Urine CLEAR (Clear); Bilirubin,Urine Negative (Negative); Blood, Urine Negative (Negative); Color,Urine YELLOW (Yellow); Glucose,Urine (UA) 3+ (Negative); Ketones,Urine 2+ (Negative); Leukocyte Esterase,Urine Negative (Negative); Nitrate,Urine Negative (Negative); Protein,Urine Negative (Negative); Urobilinogen,Urine 0.2 EU/dl (0.2)
[2017-10-18 17:06] LABS: Bacteria,Urine Trace /lpf
[2017-10-18 19:22] LABS: Alanine Aminotransferase 17 U/L (12-78); Albumin Level 4.1 gm/dL (3.4-5.0); Albumin/Globulin Ratio 1.2 (1.1-1.8); Alkaline Phosphatase 88 U/L (46-116); Anion Gap 19.7 mEq/L (5-15); Aspartate Amino Transferase 8 U/L (15-37); Bilirubin,Total 0.6 mg/dL (0.2-1.0); Blood Urea Nitrogen 14 mg/dL (7-18); Calcium 9.3 mg/dL (8.5-10.1); Carbon Dioxide 23 mmol/L (21.0-32.0); Chloride 98 mmol/L (98-107); Creatinine,Serum 0.85 mg/dL (0.55-1.02); Estimated Glomerular Filt Rate 80 ml/min (>60); GFR (African American) 97 ML/MIN (>60); Globulin 3.5 gm/dl (1.3-3.2); Glucose 380 mg/dL (74-106); Potassium 4.7 mmoL/L (3.5-5.1); Sodium 136 mmol/L (136-145); Total Protein,Serum 7.6 gm/dL (6.4-8.2)
== END ==
PROVIDERS: PCP Nurse Practitioner Family; Visit Provider Obstetrics & Gynecology
DX: R10.2 Pelvic and perineal pain (principal); Z01.812 Encounter for preprocedural laboratory examination
CPT/HCPCS: 36415; 80053; 81001; 85025

== ENCOUNTER 2017-10-19 06:11 | Day surgery (SDC) | payer OTHER, SELFPAY ==
[2017-10-18 14:45] VITALS: BMI 17.7
[2017-10-19] VITALS (15 sets, daily range): BP systolic 106–121; BP diastolic 64–78; PULSE 64–86; RESP 16–18; TEMP 36.4–37.2; O2SAT 95–100
--- NOTE | 2017-10-19 07:04 | HMH.ANESCL ---
[facility] Anesthesia Checklist - Patient Identification Patient Identification: Arm Band, Verbal (Name & ) - Structural Data Admitted From: Home Planned Operative Procedure/s: bso Consent for Planned Operative Procedure(s) Verified: Yes Verified Documents: Surgical Consent - NPO Status Verified Time NPO: 00:00 - Chart Verification Results Verified: CBC, BMP - Additional verifications Patient : No Anesthesia Reactions: No Hx Blood Transfusions: No Blood Transfusion Reaction: No Cephalosporin Allergy: No Previous Colonoscopy: No - Cardiovascular Assessment Heart Sounds: S1 & S2 Pulse Strength: Baseline Pulse Rhythm: Regular Peripheral Edema: No - Airway Assessment C-Spine Mobility Assessed: Yes TMJ Mobility Assessed: Yes Dentition: Good Dentition - Neurological Assessment Level of Consciousness: Awake, Alert, Appropriate Hx Seizures: Yes (once, ?bs related) Numbness or tingling in extremities: No - Anesthesia Plan Anesthesia Risk discussed: Yes Anesthesia Plan: Verified ASA Class: III Anesthesia Type: General [facility] Anesthesia HX I have reviewed the patient's past medical history: Yes Medical History: Reports:: Anxiety, Deep Vein Thrombosis, Depression, Diabetes Mellitus Type 1, Pulmonary Embolism, Seizures (ONE SEIZURE LAST YEAR) Denies:: Cancer, Diabetes Mellitus Type 2, Internal Pacemaker, MRSA Other Surgeries: Yes: Appendectomy, Hysterectomy-Partial, Other. No: Pacemaker Amputation: No Fractures: No *Family Hx:: Cancer, Hypertension, Diabetes
--- NOTE | 2017-10-19 07:07 | P.PN_ITS ---
[facility] Anesthesia Checklist - Patient Identification Patient Identification: Arm Band, Verbal (Name & ) - Structural Data Admitted From: Home Planned Operative Procedure/s: bso Consent for Planned Operative Procedure(s) Verified: Yes Verified Documents: Surgical Consent - NPO Status Verified Time NPO: 00:00 - Chart Verification Results Verified: CBC, BMP - Additional verifications Patient : No Anesthesia Reactions: No Hx Blood Transfusions: No Blood Transfusion Reaction: No Cephalosporin Allergy: No Previous Colonoscopy: No - Cardiovascular Assessment Heart Sounds: S1 & S2 Pulse Strength: Baseline Pulse Rhythm: Regular Peripheral Edema: No - Airway Assessment C-Spine Mobility Assessed: Yes TMJ Mobility Assessed: Yes Dentition: Good Dentition - Neurological Assessment Level of Consciousness: Awake, Alert, Appropriate Hx Seizures: Yes (once, ?bs related) Numbness or tingling in extremities: No - Anesthesia Plan Anesthesia Risk discussed: Yes Anesthesia Plan: Verified ASA Class: III Anesthesia Type: General [facility] Anesthesia HX I have reviewed the patient's past medical history: Yes Medical History: Reports:: Anxiety, Deep Vein Thrombosis, Depression, Diabetes Mellitus Type 1, Pulmonary Embolism, Seizures (ONE SEIZURE LAST YEAR) Denies:: Cancer, Diabetes Mellitus Type 2, Internal Pacemaker, MRSA Other Surgeries: Yes: Appendectomy, Hysterectomy-Partial, Other. No: Pacemaker Amputation: No Fractures: No *Family Hx:: Cancer, Hypertension, Diabetes
--- NOTE | 2017-10-19 08:15 | HMH.OPNOTE ---
Date of procedure: 10/19/17 Pre-op Diagnosis:: Pelvic pain Post-op diagnosis:: same Procedure performed:: Pelviscopic bilateral salpingo-oophorectomy Surgeon:: Madi Anderson MD SENIOR FIELD SERVICE ENGINEER:: Chang Dobbins Anesthesia: GETA Estimated blood loss (mL): 10 Operative findings:: Bilateral cystic ovaries Operative note:: After the patient was prepped and draped in usual fashion and general anesthesia was administered, examination under anesthesia revealed an absent uterus and no palpable adnexal mass. A moist sponge stick was placed in the vagina for elevation of the vaginal cuff during the laparoscopy. After appropriate regloving, the skin on either side of the umbilicus was tented up with towel clips. A small incision was made in the base of the umbilicus with a knife, and a Veress needle was inserted into the abdominal cavity. After demonstration of negative pressure, and adequate phisoperitoneum was created with carbon dioxide gas. The Veress needle was then replaced with a trocar and cannula, using the [employer] system, and the trocar placed with the laparoscope. The uterus was surgically absent. Each ovary was cystic, and free on its infundibulopelvic ligament. The upper abdomen was explored and found to be normal. Returning to the pelvis, after transillumination and under direct visualization, accessory ports were placed in the right and left lower quadrants. Using a combination of endo-Babcocks and Endo ANDRADE staplers, each infundibulopelvic ligament was crossclamped and stapled, thus removing both adnexa. The staple lines were fulgurated because of slight oozing. Each ovary was placed in an Endo Catch basket, and brought up through the right lower quadrant port. Inspection of the pelvis revealed no undue bleeding. The fascial peritoneum was reduced, and the instruments were removed under direct visualization. The incisions were infused with a dilute solution of Marcaine, as a local anesthetic, and closed with subcuticular sutures of 3-0 Vicryl. The wounds were appropriately dressed. The sponge stick was removed from the vagina. The estimated blood loss was less than 10 cc. The patient tolerated the procedure well, was taken to PACU in excellent condition. She will be given Delestrogen as a one-time dose in PACU, prior to transitioning to another form of hormonal replacement therapy. She will be discharged today, if her vital signs are stable. Condition: stable Disposition: same day Specimens:: Both adnexa Complications:: None
--- NOTE | 2017-10-19 08:20 | P.OP_ITS ---
Date of procedure: 10/19/17 Pre-op Diagnosis:: Pelvic pain Post-op diagnosis:: same Procedure performed:: Pelviscopic bilateral salpingo-oophorectomy Surgeon:: Madi Anderson MD SUPERINTENDENT LANDFILL OPERATIONS:: Chang Dobbins Anesthesia: GETA Estimated blood loss (mL): 10 Operative findings:: Bilateral cystic ovaries Operative note:: After the patient was prepped and draped in usual fashion and general anesthesia was administered, examination under anesthesia revealed an absent uterus and no palpable adnexal mass. A moist sponge stick was placed in the vagina for elevation of the vaginal cuff during the laparoscopy. After appropriate regloving, the skin on either side of the umbilicus was tented up with towel clips. A small incision was made in the base of the umbilicus with a knife, and a Veress needle was inserted into the abdominal cavity. After demonstration of negative pressure, and adequate phisoperitoneum was created with carbon dioxide gas. The Veress needle was then replaced with a trocar and cannula, using the [employer] system, and the trocar placed with the laparoscope. The uterus was surgically absent. Each ovary was cystic, and free on its infundibulopelvic ligament. The upper abdomen was explored and found to be normal. Returning to the pelvis, after transillumination and under direct visualization, accessory ports were placed in the right and left lower quadrants. Using a combination of endo-Babcocks and Endo ANDRDAE staplers, each infundibulopelvic ligament was crossclamped and stapled, thus removing both adnexa. The staple lines were fulgurated because of slight oozing. Each ovary was placed in an Endo Catch basket, and brought up through the right lower quadrant port. Inspection of the pelvis revealed no undue bleeding. The fascial peritoneum was reduced, and the instruments were removed under direct visualization. The incisions were infused with a dilute solution of Marcaine, as a local anesthetic, and closed with subcuticular sutures of 3-0 Vicryl. The wounds were appropriately dressed. The sponge stick was removed from the vagina. The estimated blood loss was less than 10 cc. The patient tolerated the procedure well, was taken to PACU in excellent condition. She will be given Delestrogen as a one-time dose in PACU, prior to transitioning to another form of hormonal replacement therapy. She will be discharged today, if her vital signs are stable. Condition: stable Disposition: same day Specimens:: Both adnexa Complications:: None
--- NOTE | 2017-10-19 08:24 | HMH.ANESI ---
[facility] Anesthesia Record Part I Intake, IV Amount: 1,300 Estimated blood loss (mL): 10 Urine output (mL): 25 Blood Pressure: 110/65 SaO2: 97 Pulse Rate: 80 Respiratory Rate: 16 Temperature: 98.9 F Patient is:: Drowsy, Stable Stable to PACU at:: 08:20
--- NOTE | 2017-10-19 08:24 | HMH.ANESII ---
[facility] Anesthesia Record Part II Discharge Time: 08:50 Destination: [facility] PACU nurse assessment reviewed?: Yes Patient Condition:: Good Anesthesia Complications:: None
--- NOTE | 2017-10-19 08:25 | P.PN_ITS ---
[facility] Anesthesia Record Part II Discharge Time: 08:50 Destination: [facility] PACU nurse assessment reviewed?: Yes Patient Condition:: Good Anesthesia Complications:: None
[2017-10-19 09:35] LABS: Hematocrit 38.3 % (37.0-47.0)
[2017-10-19 09:36] LABS: Hemoglobin 13.3 g/dL (12.2-16.2)
[2017-10-21 15:10] LABS: POC Glucose,Bedside 203 mg/dL (70-110)
[2017-10-21 15:11] LABS: POC Glucose,Bedside 246 mg/dL (70-110)
== END 2017-10-19 10:15 | disposition home or self-care (01) ==
PROVIDERS: Family Provider Nurse Practitioner Family; PCP Nurse Practitioner Family; Visit Provider Obstetrics & Gynecology
PROC: 0WJJ4ZZ Inspection of Pelvic Cavity, Percutaneous Endoscopic Approach (ICD-10-PCS; CPT 58661; principal; 2017-10-19 07:30)
DX: R10.2 Pelvic and perineal pain (principal); N83.202 Unspecified ovarian cyst, left side; N83.201 Unspecified ovarian cyst, right side; E11.9 Type 2 diabetes mellitus without complications
CPT/HCPCS: 58661; 82962; 85014; 85018; 96372; 96374; J0131; J1956; J2405; J2710

== ENCOUNTER → 2018-10-27 15:55 | Outpatient (CLI) | payer OTHER, SELFPAY ==
[2018-10-27 16:37] LABS: INR 0.87 (0.9-1.1)
[2018-10-27 17:00] LABS: Basophils % 0.4 % (0.1-2.0); Eosinophils # 0.1 K/mm3 (0.0-0.4); Eosinophils % 1.1 % (0.1-12.0); Hematocrit 47.1 % (37.0-47.0); Lymphocytes # 1.7 K/mm3 (0.7-4.5); Lymphocytes % 24.4 % (10-50); Mean Corpuscular Hemoglobin 29.9 pg (27.0-31.2); Mean Platelet Volume 8.3 fl (7.4-10.4); Monocytes # 0.2 K/mm3 (0.1-1.0); Monocytes % 2.8 % (1.7-9.3); Neutrophils # 4.9 K/mm3 (1.8-7.8); Neutrophils % 71.4 % (37.0-80.0); Platelet Count 198 K/mm3 (142-424); Red Blood Count 5.35 M/mm3 (4.20-5.40); Red Cell Distribution Width 12.6 % (11.5-17.5); White Blood Count 6.8 K/mm3 (4.8-10.8)
[2018-10-27 18:37] LABS: Alanine Aminotransferase 60 U/L (12-78); Albumin Level 3.6 gm/dL (3.4-5.0); Albumin/Globulin Ratio 1.2 (1.1-1.8); Alkaline Phosphatase 96 U/L (46-116); Anion Gap 14.1 mEq/L (5-15); Aspartate Amino Transferase 42 U/L (15-37); Bilirubin,Total 0.4 mg/dL (0.2-1.0); Blood Urea Nitrogen 15 mg/dL (7-18); Calcium 9.4 mg/dL (8.5-10.1); Carbon Dioxide 28 mmol/L (21.0-32.0); Chloride 94 mmol/L (98-107); Creatinine,Serum 0.89 mg/dL (0.55-1.02); Estimated Glomerular Filt Rate 76 ml/min (>60); GFR (African American) 91 ML/MIN (>60); Potassium 5.1 mmoL/L (3.5-5.1); Sodium 131 mmol/L (136-145); Total Protein,Serum 6.6 gm/dL (6.4-8.2)
[2018-10-27 18:58] LABS: Glucose 558 mg/dL (74-106)
== END ==
PROVIDERS: Visit Provider Internal Medicine Medical Oncology
DX: D68.51 Activated protein C resistance (principal); Z85.05 Personal history of malignant neoplasm of liver
CPT/HCPCS: 36415; 80053; 85025; 85610

== ENCOUNTER → 2019-06-20 17:33 | Outpatient (CLI) | payer OTHER, SELFPAY ==
[2019-06-20 18:28] LABS: Alanine Aminotransferase 142 U/L (12-78); Albumin Level 3.6 gm/dL (3.4-5.0); Albumin/Globulin Ratio 1.1 (1.1-1.8); Alkaline Phosphatase 186 U/L (46-116); Anion Gap 15.8 mEq/L (5-15); Aspartate Amino Transferase 82 U/L (15-37); Bilirubin,Total 0.3 mg/dL (0.2-1.0); Blood Urea Nitrogen 11 mg/dL (7-18); Calcium 9.5 mg/dL (8.5-10.1); Carbon Dioxide 28 mmol/L (21.0-32.0); Chloride 97 mmol/L (98-107); Chol/HDL Ratio 2.7 (1-3.5); Cholesterol 217 mg/dL (140-200); Creatinine,Serum 0.83 mg/dL (0.55-1.02); Estimated Glomerular Filt Rate 81 ml/min (>60); GFR (African American) 98 ML/MIN (>60); Globulin 3.4 gm/dl (1.3-3.2); Glucose 369 mg/dL (74-106); HDL Cholesterol 81 mg/dL (29-89); LDL Cholesterol 99 mg/dL (0-130); Potassium 4.8 mmoL/L (3.5-5.1); Sodium 136 mmol/L (136-145); Thyroid Stimulating Hormone 1.85 uIU/ml (0.358-3.740); Triglycerides 184 mg/dL (30-200); VLDL Cholesterol 37 mg/dL (0-40)
[2019-06-20 18:40] LABS: Hemoglobin A1C 10.1 % (0.0-7.0)
[2019-06-20 18:57] LABS: Basophils % 0.6 % (0.1-2.0); Eosinophils # 0.1 K/mm3 (0.0-0.4); Eosinophils % 1.4 % (0.1-12.0); Hematocrit 46.8 % (37.0-47.0); Hemoglobin 15.1 g/dL (12.2-16.2); Lymphocytes # 1.7 K/mm3 (0.7-4.5); Lymphocytes % 23.8 % (10-50); Mean Corpuscular HGB Conc 32.3 g/dL (31.8-35.4); Mean Corpuscular Hemoglobin 28.8 pg (27.0-31.2); Mean Corpuscular Volume 89.3 fl (81-99); Mean Platelet Volume 8.8 fl (7.4-10.4); Monocytes # 0.5 K/mm3 (0.1-1.0); Monocytes % 6.5 % (1.7-9.3); Neutrophils # 4.8 K/mm3 (1.8-7.8); Neutrophils % 67.7 % (37.0-80.0); Platelet Count 362 K/mm3 (142-424); Red Blood Count 5.24 M/mm3 (4.20-5.40); White Blood Count 7.2 K/mm3 (4.8-10.8)
[2019-06-22 10:14] LABS: Creatinine, Urine 56.4 mg/dL (Not Estab.); Microalbumin, Urine <3.0 ug/mL (Not Estab.)
[2019-06-22 10:56] LABS: Vitamin D 25 Hydroxy 14.9 ng/mL (30.0-100.0)
== END ==
PROVIDERS: Visit Provider Nurse Practitioner Family
DX: E11.9 Type 2 diabetes mellitus without complications (principal); R11.2 Nausea with vomiting, unspecified; Z79.4 Long term (current) use of insulin
CPT/HCPCS: 80053; 80061; 82043; 82570; 82652; 83036; 84436; 84443; 85025

== ENCOUNTER → 2019-08-30 13:01 | Outpatient (CLI) | payer OTHER, SELFPAY ==
[2019-08-30 14:55] LABS: Basophils % 0.7 % (0.1-2.0); Eosinophils # 0.1 K/mm3 (0.0-0.4); Eosinophils % 1.7 % (0.1-12.0); Hematocrit 42.4 % (37.0-47.0); Hemoglobin 13.9 g/dL (12.2-16.2); Lymphocytes % 33.7 % (10-50); Mean Corpuscular HGB Conc 32.8 g/dL (31.8-35.4); Mean Corpuscular Hemoglobin 28.1 pg (27.0-31.2); Mean Corpuscular Volume 85.5 fl (81-99); Mean Platelet Volume 8.7 fl (7.4-10.4); Monocytes # 0.3 K/mm3 (0.1-1.0); Monocytes % 5.3 % (1.7-9.3); Neutrophils # 3.4 K/mm3 (1.8-7.8); Neutrophils % 58.6 % (37.0-80.0); Platelet Count 235 K/mm3 (142-424); Red Blood Count 4.96 M/mm3 (4.20-5.40); Red Cell Distribution Width 12.6 % (11.5-17.5); White Blood Count 5.8 K/mm3 (4.8-10.8)
[2019-08-30 15:47] LABS: Amphetamine/Metha Screen,Urine Negative ng/mL (<1000); Barbiturates Screen,Urine Negative ng/mL (<200); Benzodiazepines Screen,Urine Negative ng/mL (<200); Cannabinoid Screen,Urine Positive ng/mL (<50); Cocaine Screen,Urine Negative ng/mL (<300); Methadone Screen,Urine Negative ng/mL (<300); Opiate Screen,Urine Negative ng/mL (<300); Phencyclidine Screen,Urine Negative ng/mL (<25)
[2019-08-30 15:50] LABS: Alanine Aminotransferase 33 U/L (12-78); Albumin Level 3.4 gm/dL (3.4-5.0); Albumin/Globulin Ratio 1.4 (1.1-1.8); Alkaline Phosphatase 81 U/L (46-116); Anion Gap 13.9 mEq/L (5-15); Aspartate Amino Transferase 19 U/L (15-37); Bilirubin,Total 0.2 mg/dL (0.2-1.0); Blood Urea Nitrogen 14 mg/dL (7-18); Calcium 8.6 mg/dL (8.5-10.1); Carbon Dioxide 27 mmol/L (21.0-32.0); Chloride 103 mmol/L (98-107); Chol/HDL Ratio 2.6 (1-3.5); Cholesterol 163 mg/dL (140-200); Creatinine,Serum 0.76 mg/dL (0.55-1.02); Estimated Glomerular Filt Rate 90 ml/min (>60); GFR (African American) 109 ML/MIN (>60); Globulin 2.4 gm/dl (1.3-3.2); Glucose 208 mg/dL (74-106); HDL Cholesterol 63 mg/dL (29-89); LDL Cholesterol 80 mg/dL (0-130); Potassium 4.9 mmoL/L (3.5-5.1); Sodium 139 mmol/L (136-145); T4 (Thyroxine) 9.4 ug/dl (4.7-13.3); Total Protein,Serum 5.8 gm/dL (6.4-8.2); Triglycerides 101 mg/dL (30-200); VLDL Cholesterol 20 mg/dL (0-40)
[2019-08-30 17:19] LABS: Hemoglobin A1C 9.3 % (0.0-7.0)
[2019-09-01 06:28] LABS: Vitamin D 25 Hydroxy 16.2 ng/mL (30.0-100.0)
[2019-09-01 12:10] LABS: Creatinine, Urine 192.9 mg/dL (Not Estab.); Microalbumin, Urine 10.1 ug/mL (Not Estab.)
== END ==
PROVIDERS: Visit Provider Nurse Practitioner Family
DX: E11.9 Type 2 diabetes mellitus without complications (principal); G62.9 Polyneuropathy, unspecified; E55.9 Vitamin D deficiency, unspecified; Z79.4 Long term (current) use of insulin
CPT/HCPCS: 36415; 80053; 80061; 80305; 82043; 82570; 82652; 83036; 84436; 84443; 85025

== ENCOUNTER → 2019-12-21 15:19 | Outpatient (CLI) | payer OTHER, SELFPAY ==
[2019-12-22 11:28] LABS: Hemoglobin A1C 8.1 % (4.0-6.0)
== END ==
PROVIDERS: Visit Provider Nurse Practitioner Family
DX: E10.610 Type 1 diabetes mellitus with diabetic neuropathic arthropathy (principal)
CPT/HCPCS: 83036

== ENCOUNTER 2020-06-30 10:31 | Emergency (ER) | payer OTHER, SELFPAY ==
[2020-06-30 10:50] VITALS: BP 97/65; PULSE 84; RESP 18; TEMP 36.9; O2SAT 97; BMI 22.6
--- NOTE | 2020-06-30 11:24 | HMH.EDUTC ---
[facility] Disposition Clinical Impression: Exposure to COVID-19 virus Disposition: Home, Self-Care Condition on Discharge: Good Instructions: Preventing the Spread of Coronavirus Discharge Instructions Additional Instructions: No sign of a bacterial infection. Likely viral. Viruses can take 7-14 days to run their course. Nasal saline and bulb syringe or nose Kiya to remove nasal drainage to help with nasal congestion. Hard to eat, drink, sleep with nasal congestion so important to keep this cleaned out. Monitor temp. Tylenol or Motrin as needed for pain or fever Encourage fluids, water, Gatorade, Powerade, Pedialyte if /toddler/child Warm salt water gargles Warm fluids Sore throat lozenges Sleep elevated Humidifier/vaporizer Your covid swab was sent, These results are typically sent to the primary care. Be sure you follow-up in 2-3 days if no improvement so we can review the results and treat if necessary. self isolate for 10 days call health dept for isolation protocol Follow-up immediately for new or worsening symptoms or no noticeable improvement over the next 48-72 hours. Referrals: Blaise Bhatia MD [Primary Care Provider] - Time of Disposition: 11:37 Medical Decision Making - Jasbir Inquiry Pt receiving controlled substance: No Vital Signs: 06/30/20 10:50 Temperature 98.4 F Temperature Source Oral Pulse Rate [Right Brachial] 84 Respiratory Rate 18 Blood Pressure [Right Arm] 97/65 L Blood Pressure Mean [Right Arm] 75 Blood Pressure Source [Right Arm] Automatic Cuff Blood Pressure Position [Right Arm] Sitting 02 Sat by Pulse Oximetry 97 Oxygen Delivery Method Room Air Orders (Tests/Meds): ORDERS Category Date Time Status Covid-19 Nasal PCR ([facility]) Routine Lab 06/30/20 10:[address] [facility] [place] [facility] HPI - General Chief complaint: Urgent Treatment Center Stated complaint: covid test Time Seen by Provider: 06/30/20 11:24 Mode of Arrival: Ambulatory Source of Information: Patient Limitations: No Limitations Description of Symptoms (Recalled from Triage Doc. by RN): PATIENT REQUESTING COVID TEST D/T EXPOSURE YESTERDAY; DENIES SYMPTOMS HEENT Symptoms (Recalled from RN notes): No Resp Symptoms (Recalled from RN notes): No Skin Symptoms (Recalled from RN notes): No MS Symptoms (Recalled from RN notes): No Functional Status (Recalled from RN notes): WNL - History of Present Illness Provider Complaint: 30 yr old female presents for covid testing. Pt states she was exposed yesterday at a wedding. - Related Data Home Medications Medication Instructions Recorded Confirmed albuterol sulfate 90 mcg/actuation 1 puff INHALATION Q6H 09/09/17 12/21/19 aerosol inhaler Buprenorphine HCl/Naloxone HCl 1.75 sgl PO DAILY 10/12/17 12/21/19 [Buprenorphin-Naloxon 8-2 mg Sl] Apixaban [Eliquis] 5 mg PO BID 11/07/19 12/21/19 Blood Sugar Diagnostic [Blood 1 tab .ROUTE .MEDSUPPLY 11/07/19 12/21/19 Glucose Test] Blood-Glucose Meter 1 1000units .ROUTE .MEDSUPPLY 11/07/19 12/21/19 Cholecalciferol (Vitamin D3) 50,000 unit PO QWEEK 11/07/19 12/21/19 [Vitamin D3 50,000 unit Cap] Cholecalciferol (Vitamin D3) 2,000 unit PO DAILY 11/07/19 12/21/19 [Vitamin D3] Insulin Lispro [HumaLOG 100 1 sliding scale dose SQ 11/07/19 12/21/19 units/mL 3mL vial (SSI)] USEASDIRECTD Melatonin 5 mg PO QHS 11/07/19 12/21/19 Previous Rx's Medication Instructions Recorded insulin glargine 100 unit/mL (3 25 unit SQ HS 30 Days #15 ml 09/26/19 mL) subcutaneous pen insulin lispro protamine-lispro 5 - 10 unit SQ TID #4 vial 09/26/19 100 unit/mL (75-25) subcutaneous susp insulin syringe-needle U-100 1 mL See Rx Instructions .ROUTE 11/08/19 31 gauge x 5/16 .MEDSUPPLY #100 each gabapentin 300 mg capsule 300 mg PO TID 14 Days #42 cap 12/21/19 sumatriptan succinate 100 mg tablet 100 mg PO Q2H PRN #10 tab 12/22/19 cariprazine 3 mg capsule 3 mg PO DAILY #30 cap 12/26/19 doxepin 50 mg capsule 50 mg PO QHS #30 cap 12/26/19
[2020-06-30 11:47] VITALS: BP 97/65; PULSE 84; RESP 18; TEMP 36.9; O2SAT 97
--- NOTE | 2020-06-30 17:31 | PC.NURSE ---
patient notified of negative covid test results
== END 2020-06-30 11:49 | disposition home or self-care (01) ==
PROVIDERS: Emergency Provider Nurse Practitioner Family; PCP Emergency Medicine
DX: Z20.828 Contact with and (suspected) exposure to other viral communicable diseases (principal); F41.8 Other specified anxiety disorders; E10.9 Type 1 diabetes mellitus without complications; Z86.711 Personal history of pulmonary embolism; D68.51 Activated protein C resistance; R56.9 Unspecified convulsions; Z79.899 Other long term (current) drug therapy; Z88.0 Allergy status to penicillin; F17.210 Nicotine dependence, cigarettes, uncomplicated; Z90.49 Acquired absence of other specified parts of digestive tract; Z90.710 Acquired absence of both cervix and uterus
CPT/HCPCS: 99201; U0003

== ENCOUNTER → 2020-09-03 18:14 | Outpatient (CLI) | payer OTHER, SELFPAY ==
[2020-09-03 20:34] LABS: Alanine Aminotransferase 76 U/L (12-78); Albumin Level 4.3 g/dl (3.5-5.0); Albumin/Globulin Ratio 1.5 (1.1-1.8); Alkaline Phosphatase 100 U/L (38-126); Anion Gap 12.2 mEq/L (5-15); Aspartate Amino Transferase 178 U/L (14-36); Bilirubin,Total 0.6 mg/dl (0.2-1.3); Blood Urea Nitrogen 14 mg/dl (7-17); Calcium 9.8 mg/dl (8.4-10.2); Carbon Dioxide 32 mmol/L (22.0-30.0); Chloride 99 mmol/L (98-107); Chol/HDL Ratio 2.6 (1-3.5); Cholesterol 186 mg/dl (140-200); Estimated Glomerular Filt Rate 98 ml/min (>60); GFR (African American) 119 ML/MIN (>60); Globulin 2.8 g/dL (1.3-3.2); Glucose 179 mg/dl (74-100); HDL Cholesterol 72 mg/dl (40-60); Potassium 4.2 mmoL/L (3.5-5.1); Sodium 139 mmol/L (136-145); Total Protein,Serum 7.1 g/dl (6.3-8.2); Triglycerides 117 mg/dl (30-150); VLDL Cholesterol 23 mg/dL (0-40)
[2020-09-03 20:45] LABS: Direct LDL Cholesterol 90.62 mg/dL (100-129)
[2020-09-03 20:51] LABS: Basophils # 0.1 K/mm3 (0-0.2); Eosinophils # 0.2 K/mm3 (0.0-0.4); Eosinophils % 2.3 % (0.1-12.0); Hematocrit 48.6 % (37.0-47.0); Lymphocytes # 2.4 K/mm3 (0.7-4.5); Lymphocytes % 36.3 % (10-50); Mean Corpuscular HGB Conc 32.9 g/dL (31.8-35.4); Mean Corpuscular Hemoglobin 28.3 pg (27.0-31.2); Mean Corpuscular Volume 86.1 fl (81-99); Mean Platelet Volume 9.9 fl (7.4-10.4); Monocytes # 0.4 K/mm3 (0.1-1.0); Monocytes % 5.4 % (1.7-9.3); Neutrophils # 3.6 K/mm3 (1.8-7.8); Platelet Count 272 K/mm3 (142-424); Red Blood Count 5.64 M/mm3 (4.20-5.40); Red Cell Distribution Width 13.6 % (11.5-17.5); T4 (Thyroxine) 12.6 ug/dl (5.53-11.0); White Blood Count 6.5 K/mm3 (4.8-10.8)
[2020-09-03 21:20] LABS: Hemoglobin A1C 8.8 % (4.0-6.0)
== END ==
PROVIDERS: Visit Provider Nurse Practitioner Family
DX: E11.9 Type 2 diabetes mellitus without complications (principal); Z79.4 Long term (current) use of insulin
CPT/HCPCS: 80053; 80061; 83036; 84436; 84443; 85025

== ENCOUNTER → 2020-12-09 14:02 | Outpatient (CLI) | payer OTHER, SELFPAY | PROVIDERS: PCP Emergency Medicine; Visit Provider Emergency Medicine | DX: Z20.822 Contact with and (suspected) exposure to COVID-19 (principal) | CPT/HCPCS: U0003 ==

== ENCOUNTER → 2021-05-01 18:40 | Outpatient (CLI) | payer OTHER, SELFPAY ==
[2021-05-01 18:43] LABS: Adenovirus,PCR Not Detected (NotDetected); Bordetella Pertussis Not Detected (NotDetected); Chlamydophila Pneumoniae, PCR Not Detected (NotDetected); Coronavirus 19, PCR Not Detected (NotDetected); Coronavirus 229E Not Detected (NotDetected); Coronavirus NL63 Not Detected (NotDetected); Coronavirus OC43 Not Detected (NotDetected); Coronovirus HKU1,PCR Not Detected (NotDetected); Human Metapneumovirus Not Detected (NotDetected); Influenza A, PCR Not Detected (NotDetected); Influenza AH1, 2009 Not Detected (NotDetected); Influenza AH1, PCR Not Detected (NotDetected); Influenza AH3,PCR Not Detected (NotDetected); Influenza B, PCR Not Detected (NotDetected); Mycoplasma Pneumoniae, PCR Not Detected (NotDetected); Parainfluenza 1, PCR Not Detected (NotDetected); Parainfluenza 2, PCR Not Detected (NotDetected); Parainfluenza 3, PCR Not Detected (NotDetected); Parainfluenza 4, PCR Not Detected (NotDetected); Respiratory Syncytial Virus Not Detected (NotDetected); Rhinovirus/Enterovirus Not Detected (NotDetected)
== END ==
PROVIDERS: Visit Provider Nurse Practitioner Family
DX: R69 Illness, unspecified; R51.9 Headache, unspecified; R50.9 Fever, unspecified
CPT/HCPCS: 87581; 87633; 87798

== ENCOUNTER → 2021-05-15 19:49 | Outpatient (CLI) | payer OTHER, SELFPAY ==
[2021-05-15 20:12] LABS: Amphetamine/Metha Screen,Urine Negative ng/ml (<1000); Barbiturates Screen,Urine Negative ng/ml (<200)
[2021-05-15 20:13] LABS: Benzodiazepines Screen,Urine Negative ng/ml (<200)
[2021-05-15 20:14] LABS: Cannabinoid Screen,Urine Positive ng/ml (<50); Cocaine Screen,Urine Negative ng/ml (<300)
[2021-05-15 20:15] LABS: Methadone Screen,Urine Negative ng/ml (<300); Opiate Screen,Urine Negative ng/ml (<300)
[2021-05-15 20:16] LABS: Phencyclidine Screen,Urine Negative ng/ml (<25)
== END ==
PROVIDERS: Visit Provider Nurse Practitioner Family
DX: Z79.899 Other long term (current) drug therapy (principal)
CPT/HCPCS: 80305

== ENCOUNTER → 2021-06-05 16:58 | Outpatient (CLI) | payer OTHER, SELFPAY ==
[2021-06-05 17:02] LABS: Adenovirus,PCR Not Detected (NotDetected); Bordetella Pertussis Not Detected (NotDetected); Chlamydophila Pneumoniae, PCR Not Detected (NotDetected); Coronavirus 19, PCR Not Detected (NotDetected); Coronavirus 229E Not Detected (NotDetected); Coronavirus NL63 Not Detected (NotDetected); Coronavirus OC43 Not Detected (NotDetected); Coronovirus HKU1,PCR Not Detected (NotDetected); Human Metapneumovirus Not Detected (NotDetected); Influenza A, PCR Not Detected (NotDetected); Influenza AH1, 2009 Not Detected (NotDetected); Influenza AH1, PCR Not Detected (NotDetected); Influenza AH3,PCR Not Detected (NotDetected); Influenza B, PCR Not Detected (NotDetected); Mycoplasma Pneumoniae, PCR Not Detected (NotDetected); Parainfluenza 1, PCR Not Detected (NotDetected); Parainfluenza 2, PCR Not Detected (NotDetected); Parainfluenza 3, PCR Not Detected (NotDetected); Parainfluenza 4, PCR Not Detected (NotDetected); Respiratory Syncytial Virus Not Detected (NotDetected); Rhinovirus/Enterovirus Not Detected (NotDetected)
== END ==
PROVIDERS: Visit Provider Nurse Practitioner Family
DX: Z20.822 Contact with and (suspected) exposure to COVID-19 (principal); R05.9 Cough, unspecified; J02.9 Acute pharyngitis, unspecified; E11.9 Type 2 diabetes mellitus without complications; Z79.4 Long term (current) use of insulin; F17.210 Nicotine dependence, cigarettes, uncomplicated
CPT/HCPCS: 87086; 87486; 87581; 87632; 87798; C9803; U0003; U0005

== ENCOUNTER → 2021-06-16 18:26 | Outpatient (CLI) | payer OTHER, SELFPAY ==
[2021-06-16 19:01] LABS: Basophils # 0.1 K/mm3 (0-0.2); Eosinophils # 0.1 K/mm3 (0.0-0.4); Eosinophils % 1.4 % (0.1-12.0); Hematocrit 51.3 % (37.0-47.0); Hemoglobin 16.6 g/dL (12.2-16.2); Lymphocytes # 2.1 K/mm3 (0.7-4.5); Lymphocytes % 41.1 % (10-50); Mean Corpuscular HGB Conc 32.3 g/dL (31.8-35.4); Mean Corpuscular Hemoglobin 28.2 pg (27.0-31.2); Mean Corpuscular Volume 87.1 fl (81-99); Mean Platelet Volume 9.2 fl (7.4-10.4); Monocytes # 0.3 K/mm3 (0.1-1.0); Monocytes % 4.9 % (1.7-9.3); Neutrophils # 2.6 K/mm3 (1.8-7.8); Neutrophils % 51.7 % (37.0-80.0); Platelet Count 253 K/mm3 (142-424); Red Blood Count 5.88 M/mm3 (4.20-5.40); Red Cell Distribution Width 13.5 % (11.5-17.5); White Blood Count 5.1 K/mm3 (4.8-10.8)
[2021-06-16 19:08] LABS: Alanine Aminotransferase 20 U/L (12-78); Albumin Level 4.2 g/dl (3.5-5.0); Albumin/Globulin Ratio 1.7 (1.1-1.8); Alkaline Phosphatase 64 U/L (38-126); Anion Gap 9.3 mEq/L (5-15); Aspartate Amino Transferase 32 U/L (14-36); Bilirubin,Total 0.5 mg/dl (0.2-1.3); Blood Urea Nitrogen 10 mg/dl (7-17); Calcium 9.5 mg/dl (8.4-10.2); Carbon Dioxide 32 mmol/L (22.0-30.0); Chloride 102 mmol/L (98-107); Chol/HDL Ratio 3.1 (1-3.5); Cholesterol 187 mg/dl (140-200); Estimated Glomerular Filt Rate 144 ml/min (>60); GFR (African American) 174 ML/MIN (>60); Globulin 2.5 g/dL (1.3-3.2); Glucose 202 mg/dl (74-100); HDL Cholesterol 61 mg/dl (40-60); Potassium 5.3 mmoL/L (3.5-5.1); Sodium 138 mmol/L (136-145); Total Protein,Serum 6.7 g/dl (6.3-8.2); Triglycerides 64 mg/dl (30-150); VLDL Cholesterol 13 mg/dL (0-40)
[2021-06-16 19:20] LABS: Direct LDL Cholesterol 101.17 mg/dL (100-129)
[2021-06-16 19:26] LABS: T4 (Thyroxine) 11.2 ug/dl (5.53-11.0)
[2021-06-16 19:31] LABS: Hemoglobin A1C 10.3 % (4.0-6.0)
[2021-06-16 19:39] LABS: Thyroid Stimulating Hormone 1.88 uIU/mL (0.465-4.68)
[2021-06-16 20:59] LABS: 25-OH Vitamin D, Total 32.9 ng/mL (30-100)
[2021-06-18 14:11] LABS: C-Peptide 0.3 ng/mL (1.1-4.4)
== END ==
PROVIDERS: Visit Provider Nurse Practitioner Family
DX: E11.9 Type 2 diabetes mellitus without complications (principal); N39.0 Urinary tract infection, site not specified; Z79.4 Long term (current) use of insulin
CPT/HCPCS: 80053; 80061; 82043; 82306; 83036; 84436; 84443; 84681; 85025; 87086

== ENCOUNTER 2021-07-26 17:09 | Emergency (ER) | payer OTHER, SELFPAY ==
[2021-07-26 17:25] VITALS: BP 117/78; PULSE 85; RESP 18; TEMP 37; O2SAT 97; BMI 20.5
[2021-07-26 17:47] LABS: UTC Strep Screen (Rapid) Negative (Negative)
--- NOTE | 2021-07-26 17:48 | HMH.EDUTC ---
[facility] Disposition Clinical Impression: Viral syndrome, Exposure to COVID-19 virus Upper respiratory infection Qualifiers: URI type: unspecified URI Qualified Code(s): J06.9 - Acute upper respiratory infection, unspecified Pharyngitis Qualifiers: Pharyngitis/tonsillitis etiology: unspecified etiology Qualified Code(s): J02.9 - Acute pharyngitis, unspecified Disposition: Home, Self-Care Condition on Discharge: Good Instructions: DI for Pharyngitis/Tonsillopharyngitis -- Adult, DI for COVID-19 (Suspected or Confirmed ), Preventing the Spread of Coronavirus Discharge Instructions Additional Instructions: Drink plenty of fluids. Take tylenol or ibuprofen for pain or fever. Take the medications as directed. Follow up with your regular doctor. GO TO THE ER FOR ANY WORSENING SYMPTOMS Quarantine until you know the results of your covid-19 test. If it is positive, the health department should call you and give you further instructions about your length of Quarantine and other things. Notify your school or workplace of your results and follow their instructions regarding return to work/school. Prescriptions: Azithromycin [Z-Sarbjit 250mg Tab*] 250 mg PO UD DOSE PK #6 tab Transmission Status: Received by [facility] Referrals: Jeff Zamarripa APRN [Primary Care Provider] - Time of Disposition: 18:23 Medical Decision Making - Medical Records Medical records reviewed: No: I reviewed the patient's medical records. - Jasbir Inquiry Pt receiving controlled substance: No Vital Signs: 07/26/21 17:25 07/26/21 18:26 Temperature 98.6 F 98.6 F Temperature Source Oral Pulse Rate 85 Pulse Rate [Left] 85 Respiratory Rate 18 18 Blood Pressure 117/78 Blood Pressure [Right Arm] 117/78 Blood Pressure Mean [Right Arm] 91 02 Sat by Pulse Oximetry 97 - Lab Data Lab results reviewed: Yes: I reviewed the patient's lab results. Lab Results 07/26/21 17:36: Strep Scn [facility] Negative Orders (Tests/Meds): ED MEDICATIONS Discontinued Medications Generic Name Dose Route Start Last Admin Trade Name Freq PRN Reason Stop Dose Admin Azithromycin 500 mg 07/26/21 18:20 07/26/21 18:25 Azithromycin 250mg Tablet PO 07/26/21 18:21 500 mg ONCE ONE Administration ORDERS Category Date Time Status Covid-19 Nasal PCR ([facility]) Routine Lab 07/26/21 17:32 Received Strep Screen Confirmation Routine Micro 07/26/21 17:36 Received [facility] HPI - General Stated complaint: tired, sore throat, headache Time Seen by Provider: 07/26/21 17:49 Mode of Arrival: Ambulatory Source of Information: Patient Limitations: No Limitations Description of Symptoms (Recalled from Triage Doc. by RN): pt c/o a VIERA, body aches, loss of appetite and a sore throat. HEENT Symptoms (Recalled from RN notes): Yes (VIERA and sore throat) Resp Symptoms (Recalled from RN notes): No Skin Symptoms (Recalled from RN notes): No MS Symptoms (Recalled from RN notes): No Functional Status (Recalled from RN notes): wnl - History of Present Illness Provider Complaint: She states that she has felt bad for the past 2 days. She c/o fatigue, sore throat and a cough. She has not been vaccinated against covid-19. She is a type 1 diabetic. She has a history of asthma. - Related Data Home Medications Medication Instructions Recorded Confirmed Buprenorphine HCl/Naloxone HCl 1.75 sgl PO DAILY 10/12/17 07/07/21 [Buprenorphine-Nalox 8-2 mg Tab] Blood-Glucose Meter 1 1000units .ROUTE .MEDSUPPLY 11/07/19 07/07/21 Previous Rx's Medication Instructions Recorded albuterol sulfate 90 mcg/actuation 1 puff INHALATION Q6H #6.7 g 09/03/20 aerosol inhaler blood sugar diagnostic See Rx Instructions .ROUTE 09/03/20 .MEDSUPPLY #100 each blood sugar diagnostic See Rx Instructions MISCELLANE 09/03/20 ACHS #100 each cholecalciferol (vitamin D3) 1,250 50,000 unit PO QWEEK #7 cap 09/03/20 mcg (50,000 unit) capsule cholecalcife
[2021-07-26 18:26] VITALS: BP 117/78; PULSE 85; RESP 18; TEMP 37
== END 2021-07-26 19:13 | disposition home or self-care (01) ==
PROVIDERS: Emergency Provider Nurse Practitioner Family; PCP Nurse Practitioner Family
DX: J06.9 Acute upper respiratory infection, unspecified (principal); J02.9 Acute pharyngitis, unspecified; Z20.822 Contact with and (suspected) exposure to COVID-19; E10.9 Type 1 diabetes mellitus without complications; F17.210 Nicotine dependence, cigarettes, uncomplicated; F41.8 Other specified anxiety disorders
CPT/HCPCS: 87880; 99203; C9803; G0463; U0003; U0005

== ENCOUNTER → 2021-07-30 18:45 | Outpatient (CLI) | payer OTHER, SELFPAY | PROVIDERS: Visit Provider Nurse Practitioner Family | DX: U07.1 COVID-19 (principal) | CPT/HCPCS: C9803; U0003; U0005 ==

== ENCOUNTER → 2021-08-28 16:15 | Outpatient (CLI) | payer OTHER, SELFPAY ==
[2021-08-28 17:04] LABS: Amphetamine/Metha Screen,Urine Negative ng/ml (<1000)
[2021-08-28 17:05] LABS: Barbiturates Screen,Urine Negative ng/ml (<200); Benzodiazepines Screen,Urine Negative ng/ml (<200)
[2021-08-28 17:06] LABS: Cannabinoid Screen,Urine Positive ng/ml (<50); Cocaine Screen,Urine Negative ng/ml (<300)
[2021-08-28 17:07] LABS: Methadone Screen,Urine Negative ng/ml (<300)
[2021-08-28 17:08] LABS: Opiate Screen,Urine Negative ng/ml (<300); Phencyclidine Screen,Urine Negative ng/ml (<25)
[2021-08-28 17:17] LABS: Microalbumin/Creatinine Ratio 13.6
[2021-08-28 17:39] LABS: Creatinine,Urine Random 79 mg/dL (Not Estab.)
== END ==
PROVIDERS: Visit Provider Nurse Practitioner Family
DX: E11.9 Type 2 diabetes mellitus without complications (principal); Z79.4 Long term (current) use of insulin; Z79.899 Other long term (current) drug therapy
CPT/HCPCS: 80305; 82043; 82570

== ENCOUNTER 2021-09-23 15:02 | Inpatient (IN) | payer OTHER, SELFPAY ==
[2021-09-23 15:03] VITALS: BP 126/79; PULSE 106; RESP 18; TEMP 36.6; O2SAT 100; BMI 18.8
--- NOTE | 2021-09-23 15:29 | PC.NURSE ---
Urine sent to lab
--- NOTE | 2021-09-23 15:49 | HMH.EDGENADL ---
ED Disposition Clinical Impression: COVID-19 DKA (diabetic ketoacidosis) Qualifiers: Diabetes mellitus type: type 1 Diabetes mellitus complication detail: without coma Qualified Code(s): E10.10 - Type 1 diabetes mellitus with ketoacidosis without coma Disposition: Admitted As Inpatient Condition on Discharge: Good - Critical Care Critical Care Time: Yes Attestation: On 09/23/21, the high probability of a clinically significant, sudden or life threatening deterioration of the following system(s) required my full and direct attention, intervention and personal management. The time I documented below is in addition to time spent performing reported procedures but includes the following listed in this critical care notation. Vital system(s) involved:: Metabolic Failure My critical care processes included: Assessment & monitoring of V/S, Initial and Re-exams, Data Review/Interpretation, Coordinating Care Medical Decision Making - Medical Records Medical records reviewed: Yes: I reviewed the patient's medical records. - Jasbir Inquiry Pt receiving controlled substance: No Vital Signs: 09/23/21 15:03 09/23/21 16:55 09/23/21 18:46 Temperature 97.9 F 98.1 F Temperature Source Oral Pulse Rate 72 71 Pulse Rate [Right Radial] 106 H Respiratory Rate 18 18 Blood Pressure 113/68 116/64 Blood Pressure [Right Arm] 126/79 Blood Pressure Mean [Right Arm] 94 Blood Pressure Source [Right Arm] Automatic Cuff Blood Pressure Position [Right Arm] Sitting 02 Sat by Pulse Oximetry 100 98 Oxygen Delivery Method Room Air Room Air Room Air - Lab Data Lab Results 09/23/21 15:48: Influenza Type A Ag Negative, Influenza Type B Ag Negative 09/23/21 16:05: Urine Color Yellow, Urine Appearance Clear, Urine pH 5.5, Ur Specific [place] >= 1.030, Urine Protein Trace, Urine Glucose (UA) 2+, Urine Ketones 3+, Urine Blood Trace-i, Urine Nitrate Negative, Urine Bilirubin Negative, Urine Urobilinogen 0.2, Ur Leukocyte Esterase Negative, Urine RBC Occasional, Urine WBC Occasional, Ur Squamous Epith Cells 3-5, Urine Bacteria Trace 09/23/21 16:15: WBC 8.0, RBC 5.78 H, Hgb 16.6 H, Hct 50.9 H, MCV 88.0, MCH 28.8, MCHC 32.7, RDW 13.2, Plt Count 299, MPV 8.6, Neut % (Auto) 82.4 H, Lymph % (Auto) 12.8, [place] % (Auto) 3.1, Eos % (Auto) 0.1, Baso % (Auto) 1.7, Neut # (Auto) 6.6, Lymph # (Auto) 1.0, [place] # (Auto) 0.3, Eos # (Auto) 0.0, Baso # (Auto) 0.1 09/23/21 16:15: Sodium 133 L, Potassium 5.2 H, Chloride 102, Carbon Dioxide 8 L*, Anion Gap 28.2 H, BUN 15, Creatinine 0.70, Estimated Creat Clear 103, Estimated GFR 98, Est GFR ( Amer) 118, Glucose 361 H, Calcium 9.8, Total Bilirubin 0.8, AST 29, ALT 26, Alkaline Phosphatase 105, Total Protein 8.1, Albumin 4.9, Globulin 3.2, Albumin/Globulin Ratio 1.5 09/23/21 16:15: Acetone Level Large 09/23/21 16:43: Specimen Source r/r, O2 % r/a, ABG pH 7.19 L*, ABG pCO2 21.6 L, ABG pO2 109.1 H, ABG HCO3 8.1 L, ABG Total CO2 8.7 L, ABG O2 Saturation 97, ABG Base Excess -20.1 L, Oscar Test y 09/23/21 16:44: SARS-CoV-2 (PCR) Detected A, Influenza A Untype (PCR) Not detected, Influenza Type B (PCR) Not detected Result diagrams: 09/26/21 05:32 09/25/21 05:22 Orders (Tests/Meds): ED MEDICATIONS Discontinued Medications Generic Name Dose Route Start Last Admin Trade Name Freq PRN Reason Stop Dose Admin Dextrose 50 ml 09/23/21 18:47 Dextrose 50% 50ml Syringe (Crash Cart) IVP 10/23/21 18:46 NEEDED PRN Per DKA Protocol Sodium Chloride 1,000 mls @ 999 mls/hr 09/23/21 16:00 09/23/21 16:29 Sod Chlor 0.9% 1000ml Bag IV 09/23/21 17:00 999 mls/hr .Q1H1M KAREEM Administration Sodium Chloride 1,000 mls @ 999 mls/hr 09/23/21 16:45 02/01/22 16:49 Sod Chlor 0.9% 1000ml Bag IV 09/23/21 17:45 999 mls/hr .Q1H1M KAREEM Administration Insulin Human Regular 100 unit 101 mls @ 5.681 mls/hr 09/23/21 17:00 09/23/21 21:49 / Sodium Chloride IV 10/23/21 16:59 Not Given .[id number]
[2021-09-23 16:13] LABS: Microscopic, Urine URINE MICROSCOPIC (MICROSCOPIC)
[2021-09-23 16:15] LABS: Appearance,Urine CLEAR (Clear); Bilirubin,Urine Negative (Negative); Blood, Urine TRACE-I (Negative); Color,Urine YELLOW (Yellow); Glucose,Urine (UA) 2+ (Negative); Ketones,Urine 3+ (Negative); Leukocyte Esterase,Urine Negative (Negative); Nitrate,Urine Negative (Negative); PH,Urine 5.5 (5.0-8.5); Protein,Urine TRACE (Negative); Specific Gravity, Urine >= 1.030 (1.005-1.030); Urobilinogen,Urine 0.2 EU/dl (0.2)
[2021-09-23 16:27] LABS: Bacteria,Urine Trace /lpf; RBC,Urine Occasional #/hpf (0-3); WBC,Urine Occasional #/hpf (0-3)
[2021-09-23 16:28] LABS: Basophils # 0.1 K/mm3 (0-0.2); Basophils % 1.7 % (0.1-2.0); Eosinophils % 0.1 % (0.1-12.0); Hematocrit 50.9 % (37.0-47.0); Hemoglobin 16.6 g/dL (12.2-16.2); Lymphocytes % 12.8 % (10-50); Mean Corpuscular HGB Conc 32.7 g/dL (31.8-35.4); Mean Corpuscular Hemoglobin 28.8 pg (27.0-31.2); Mean Platelet Volume 8.6 fl (7.4-10.4); Monocytes # 0.3 K/mm3 (0.1-1.0); Monocytes % 3.1 % (1.7-9.3); Neutrophils # 6.6 K/mm3 (1.8-7.8); Neutrophils % 82.4 % (37.0-80.0); Platelet Count 299 K/mm3 (142-424); Red Blood Count 5.78 M/mm3 (4.20-5.40); Red Cell Distribution Width 13.2 % (11.5-17.5)
[2021-09-23 16:39] LABS: Alanine Aminotransferase 26 U/L (12-78); Albumin Level 4.9 g/dl (3.5-5.0); Albumin/Globulin Ratio 1.5 (1.1-1.8); Alkaline Phosphatase 105 U/L (38-126); Anion Gap 28.2 mEq/L (5-15); Aspartate Amino Transferase 29 U/L (14-36); Bilirubin,Total 0.8 mg/dl (0.2-1.3); Blood Urea Nitrogen 15 mg/dl (7-17); Calcium 9.8 mg/dl (8.4-10.2); Chloride 102 mmol/L (98-107); Creatinine Clearance Estimated 103 mL/min (50-200); Estimated Glomerular Filt Rate 98 ml/min (>60); GFR (African American) 118 ML/MIN (>60); Globulin 3.2 g/dL (1.3-3.2); Glucose 361 mg/dl (74-100); Potassium 5.2 mmoL/L (3.5-5.1); Sodium 133 mmol/L (136-145); Total Protein,Serum 8.1 g/dl (6.3-8.2)
[2021-09-23 16:42] LABS: Carbon Dioxide 8 mmol/L (22.0-30.0)
[2021-09-23 16:45] LABS: Acetone, Serum (Rapid) Large (None Detect)
--- NOTE | 2021-09-23 16:45 | PC.NURSE ---
notified RT of abg order
[2021-09-23 16:49] LABS: Influenza A, PCR Not Detected (NotDetected); Influenza B, PCR Not Detected (NotDetected)
[2021-09-23 16:55] VITALS: BP 113/68; PULSE 72; O2SAT 98
--- NOTE | 2021-09-23 16:56 | PC.NURSE ---
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 gilberto torres
[2021-09-23 16:57] LABS: ABG Base Excess -20.1 mmol/L (-2.4-2.3); ABG HCO3 8.1 mmhg (22.0-26.0); ABG Oxygen Saturation 97 % (90-100); ABG PCO2 21.6 mmhg (35.0-45.0); ABG PO2 109.1 mmhg (80-100); ABG TCO2 8.7 mmhg (23-27)
[2021-09-23 16:58] LABS: Allen's Test y; Oxygen r/a %
[2021-09-23 17:00] LABS: ABG PH 7.19 mmol/L (7.35-7.45)
--- NOTE | 2021-09-23 17:01 | PC.NURSE ---
ER notified of pt critical finding on abg
[2021-09-23 17:16] LABS: Coronavirus 19, PCR Detected (NotDetected)
--- NOTE | 2021-09-23 18:33 | PC.NURSE ---
Report given to Jesika LUND. wanted 3 bolus NS before insulin drip was started, pt is on 3 bag at this time with half bag remaining. RN aware of this in report and will continue to monitor once transferred to floor
[2021-09-23 18:46] VITALS: BP 116/64; PULSE 71; RESP 18; TEMP 36.7; O2SAT 99
[2021-09-23 19:32] LABS: POC Glucose,Bedside 274 (70-110)
--- NOTE | 2021-09-23 19:36 | PC.NURSE ---
PIV 18g in left wrist inserted by Singh Griffin RN
[2021-09-23 19:43] VITALS: BMI 19.3
[2021-09-23 19:59] LABS: Anion Gap 23.9 mEq/L (5-15); Blood Urea Nitrogen 13 mg/dl (7-17); Chloride 108 mmol/L (98-107); Creatinine Clearance Estimated 123 mL/min (50-200); Estimated Glomerular Filt Rate 117 ml/min (>60); GFR (African American) 141 ML/MIN (>60); Glucose 282 mg/dl (74-100); Potassium 4.9 mmoL/L (3.5-5.1); Sodium 136 mmol/L (136-145)
[2021-09-23 20:00] VITALS: BP 137/76; PULSE 59; PULSE 60; RESP 12; TEMP 37.2; O2SAT 100
[2021-09-23 20:00] LABS: Carbon Dioxide 9 mmol/L (22.0-30.0)
[2021-09-23 20:02] LABS: Acetone, Serum (Rapid) Small (None Detect)
[2021-09-23 21:31] LABS: POC Glucose,Bedside 239 (70-110)
[2021-09-23 22:00] VITALS: BP 116/61; PULSE 70; RESP 14; O2SAT 99
--- NOTE | 2021-09-23 22:09 | P.CONPHA_ITS ---
[facility] Pharmacy VTE Monitoring - Patient Demographics Admission date: 09/23/21 Report Date: 09/23/21 Time: 22:09 Allergies/Adverse Reactions: Patient Allergies tramadol [TRAMADOL] Allergy (Severe, Verified 09/23/21 19:49) Swelling of Lip/Tongue/Throat butalbital [BUTALBITAL] Allergy (Unknown, Verified 09/23/21 19:49) codeine [CODEINE] Allergy (Unknown, Verified 09/23/21 19:49) iodine [IODINE] Allergy (Unknown, Verified 09/23/21 19:49) ketorolac [KETOROLAC] Allergy (Unknown, Verified 09/23/21 19:49) Penicillins [PENICILLINS] Allergy (Unknown, Verified 09/23/21 19:49) povidone-iodine [From BETADINE] Allergy (Unknown, Verified 09/23/21 19:49) ADHESIVES Allergy (Mild, Uncoded 09/05/21 14:00) blisters Height: 1.73 m Weight: 57.561 kg Patient Problems: Current Active Problems DKA (diabetic ketoacidoses) (Acute) COVID-19 (Acute) - VTE Risk Labs: VTE Related Lab Results Hgb 16.6 g/dL (12.2-16.2) H 09/23/21 16:15 Hct 50.9 % (37.0-47.0) H 09/23/21 16:15 Plt Count 299 K/mm3 (142-424) 09/23/21 16:15 BUN 13 mg/dl (7-17) 09/23/21 19:30 Creatinine 0.60 mg/dl (0.52-1.04) 09/23/21 19:30 Estimated Creat Clear 123 mL/min (50-200) 09/23/21 19:30 Was VTE Risk Assessment Performed: Yes VTE Score: 4 VTE Risk Level: Low Risk Clinical Trial Participant: No - Prophylaxis VTE Prophylaxis Ordered?: Yes Types of VTE Prophylaxis: TEDS Knee High
[2021-09-23 22:25] LABS: POC Glucose,Bedside 213 (70-110)
[2021-09-23 23:18] LABS: Anion Gap 13.5 mEq/L (5-15); Blood Urea Nitrogen 12 mg/dl (7-17); Calcium 7.8 mg/dl (8.4-10.2); Carbon Dioxide 15 mmol/L (22.0-30.0); Chloride 111 mmol/L (98-107); Creatinine Clearance Estimated 148 mL/min (50-200); Estimated Glomerular Filt Rate 144 ml/min (>60); GFR (African American) 174 ML/MIN (>60); Glucose 190 mg/dl (74-100); Potassium 4.5 mmoL/L (3.5-5.1); Sodium 135 mmol/L (136-145)
[2021-09-24] VITALS (12 sets, daily range): BP systolic 101–127; BP diastolic 58–79; PULSE 50–83; RESP 13–18; TEMP 36.7–37.3; O2SAT 96–99; BMI 19.1
[2021-09-24 00:09] LABS: POC Glucose,Bedside 154 (70-110)
[2021-09-24 01:16] LABS: POC Glucose,Bedside 121 (70-110)
[2021-09-24 02:38] LABS: POC Glucose,Bedside 207 (70-110)
[2021-09-24 03:31] LABS: Blood Urea Nitrogen 10 mg/dl (7-17); Calcium 7.9 mg/dl (8.4-10.2); Carbon Dioxide 18 mmol/L (22.0-30.0); Chloride 110 mmol/L (98-107); Creatinine Clearance Estimated 148 mL/min (50-200); Estimated Glomerular Filt Rate 144 ml/min (>60); GFR (African American) 174 ML/MIN (>60); Glucose 188 mg/dl (74-100); Sodium 134 mmol/L (136-145)
[2021-09-24 04:19] LABS: POC Glucose,Bedside 217 (70-110)
--- NOTE | 2021-09-24 04:58 | PC.NURSE ---
pt has been awake t/o shift, no complaints of SOA, insulin gtt currently at 2, has complained of ear ache
[2021-09-24 06:32] LABS: POC Glucose,Bedside 258 (70-110)
[2021-09-24 06:56] LABS: Chloride 109 mmol/L (98-107); Sodium 130 mmol/L (136-145)
[2021-09-24 06:59] LABS: Blood Urea Nitrogen 10 mg/dl (7-17); Carbon Dioxide 19 mmol/L (22.0-30.0); Creatinine Clearance Estimated 148 mL/min (50-200); Estimated Glomerular Filt Rate 144 ml/min (>60); GFR (African American) 174 ML/MIN (>60)
[2021-09-24 07:00] LABS: Calcium 7.7 mg/dl (8.4-10.2); Glucose 244 mg/dl (74-100)
[2021-09-24 07:58] LABS: Acetone, Serum (Rapid) Small (None Detect)
--- NOTE | 2021-09-24 08:40 | XR_ITS ---
FINAL REPORT CLINICAL HISTORY: covid 19 COMPARISON: 11/07/2019 FINDINGS: SINGLE VIEW CHEST The heart is normal in size. The mediastinum is unremarkable. The lungs are clear. There is no pneumothorax. IMPRESSION: No acute cardiopulmonary process. Reviewed, Interpreted and Dictated by Laron Graham III, MD Transcribed by Leonela Hdez Authenticated by Laron Graham III, MD on 09/24/2021 10:24:47 AM [facility]
--- NOTE | 2021-09-24 08:42 | PC.NURSE ---
Verbal order from MD Bhatia- 1L bolus of NS then NS @ 125 for maintenance IV fluids
--- NOTE | 2021-09-24 08:59 | HMH.HP ---
*Admission Date: 09/23/21 *Chief complaint: dka *History of present illness: 31 yr old female presented to ed with c/o of n/v/d since sat and glucose elevated. pt states she has been coughing and not feeling well since sat. Pt states her glucose has been going up and down but did improve once pump was increased until she became ill with n/v/d. Pt was found to be in DKA and covid +. Admitted and placed on insulin drip. consult pulm for covid [facility] History I have reviewed the patient's past medical history: Yes Medical History: Reports:: Anxiety, Deep Vein Thrombosis, Depression, Diabetes Mellitus Type 1, Pulmonary Embolism, Seizures Denies:: Cancer, Diabetes Mellitus Type 2, Internal Pacemaker, MRSA *Have you ever received a pneumonia vaccine?: Yes *Have you received a flu vaccine this season?: No Other Medical History: Denies: Blood Transfusion Reaction Other Surgeries: Yes: Appendectomy, Cholecystectomy, , Hysterectomy-Total, Hysterectomy-Partial, Other. No: Pacemaker Amputation: No Fractures: No - *Social History Smoking Status: Current every day smoker Tobacco Type: cigarettes # Packs/Day (cigarettes): 1 Alcohol Intake: never Substance Use Type: crack/cocaine Last Used Substance: unknown *Occupational Status:: other Housing: house Household Members: spouse *Travel in the last 8 weeks: None - Psychiatric History Pschychiatric History:: Reports:: Anxiety, Depression Family Hx:: Asthma, Diabetes, Hypertension Review of Systems - Review of Systems Review of systems:: pertinent systems reviewed and negative unless documented below - Constitutional Reports body ache(s), Reports fatigue, Reports malaise - Eyes Denies blurry vision - ENT Denies abnormal hearing, Denies sore throat - *Cardiovascular Denies chest pain - *Respiratory Reports change in phlegm color, Reports cough - *Gastrointestinal Reports loose stools, Reports nausea, Reports vomiting, Denies abdominal pain - *Genitourinary Denies urinary urgency - *Musculoskeletal Denies abnormal walking - Integumentary/Breasts Denies rash - *Neurologic Denies dizziness - Psychiatric Denies abnormal sleep pattern - Endocrine Denies cold intolerance - Hematologic/Lymphatic Denies easy bleeding - Allergic/Immunologic Denies GI upset with certain foods Meds Home Medications Medication Instructions Recorded Confirmed Type albuterol sulfate 90 mcg/actuation 1 puff INHALATION Q6H #6.7 g 09/03/20 09/23/21 Rx aerosol inhaler cholecalciferol (vitamin D3) 50 2,000 unit PO DAILY #90 cap 09/03/20 09/23/21 Rx mcg (2,000 unit) capsule insulin lispro 100 unit/mL 1 sliding scale dose SQ 08/28/21 09/24/21 History subcutaneous solution DIRECTED ml Insulin Pump Cartridge [Omnipod See Rx Instructions SQ .MEDSUPPLY 09/23/21 09/23/21 History Dash 5 Pack Pod] Ubrogepant [Ubrelvy] 100 mg PO NEEDED PRN 09/23/21 09/24/21 History Cholecalciferol (Vitamin D3) 50,000 unit PO WEEKLY 09/24/21 09/24/21 History [Vitamin D3 50,000 unit Cap] Melatonin 5 mg PO HS 09/24/21 09/24/21 History Allergies Allergy/AdvReac Type Severity Reaction Status Date / Time tramadol [TRAMADOL] Allergy Severe Swelling Verified 09/23/21 19:49 of Lip/Tongue/Throat butalbital [BUTALBITAL] Allergy Unknown Verified 09/23/21 19:49 codeine [CODEINE] Allergy Unknown Verified 09/23/21 19:49 iodine [IODINE] Allergy Unknown Verified 09/23/21 19:49 ketorolac [KETOROLAC] Allergy Unknown Verified 09/23/21 19:49 Penicillins [PENICILLINS] Allergy Unknown Verified 09/23/21 19:49 povidone-iodine Allergy Unknown Verified 09/23/21 19:49 [From BETADINE] ADHESIVES Allergy Mild blisters Uncoded 09/05/21 14:00 Exam Vital signs and Labs for Last 24 Hours: Temp Pulse Resp BP Pulse Ox 98.4 F 59 L 13 121/66 97 09/24/21 06:00 09/24/21 06:00 09/24/21 06:00 09/24/21 06:00 09/24/21 06:00 Laboratory Results - last 24 hr 09/23/21 15:48:
[2021-09-24 09:22] LABS: POC Glucose,Bedside 237 (70-110)
--- NOTE | 2021-09-24 10:58 | HMH.PULMCON ---
*Admission Date: 09/23/21 *Reason for consult:: COVID-19 pneumonia *History of present illness: Ms. 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 She also admits personal history of asthma and has been using albuterol as needed. She is a current smoker smoking 0.5 to 1 pack a day [facility] History Medical History: Reports:: Anxiety, Deep Vein Thrombosis, Depression, Diabetes Mellitus Type 1, Pulmonary Embolism, Seizures Denies:: Cancer, Diabetes Mellitus Type 2, Internal Pacemaker, MRSA *Have you ever received a pneumonia vaccine?: Yes *Have you received a flu vaccine this season?: No Other Medical History: Denies: Blood Transfusion Reaction Other Surgeries: Yes: Appendectomy, Cholecystectomy, , Hysterectomy-Total, Hysterectomy-Partial, Other. No: Pacemaker Amputation: No Fractures: No - *Social History Smoking Status: Current every day smoker Tobacco Type: cigarettes # Packs/Day (cigarettes): 1 Alcohol Intake: never Substance Use Type: crack/cocaine Last Used Substance: unknown *Occupational Status:: other Housing: house Household Members: spouse *Travel in the last 8 weeks: None - Psychiatric History Pschychiatric History:: Reports:: Anxiety, Depression Family Hx:: Asthma, Diabetes, Hypertension ROS - Cons Reports anorexia, Reports body ache(s), Reports chills - Eyes Denies change in vision - ENT Reports nasal congestion, Reports nasal discharge, Reports nasal obstruction, Denies bleeding gums - Card Reports shortness of breath, Reports shortness of breath with activity - Resp Respiratory: Reports cough, Reports non-productive cough, Reports dyspnea, Reports dyspnea on exertion, Denies excessive phlegm production, Denies cough with sputum production, Reports wheezing - GI Gastrointestingal: Reports: nausea, vomiting - [place] Musculoskeletal: Reports muscle aches - Psych Denies thoughts of hurting/killing others, Denies thoughts of hurting/killing yourself Meds Home Medications Medication Instructions Recorded Confirmed Type albuterol sulfate 90 mcg/actuation 1 puff INHALATION Q6H #6.7 g 09/03/20 09/23/21 Rx aerosol inhaler cholecalciferol (vitamin D3) 50 2,000 unit PO DAILY #90 cap 09/03/20 09/23/21 Rx mcg (2,000 unit) capsule insulin lispro 100 unit/mL 1 sliding scale dose SQ 08/28/21 09/24/21 History subcutaneous solution DIRECTED ml Insulin Pump Cartridge [Omnipod See Rx Instructions SQ .MEDSUPPLY 09/23/21 09/23/21 History Dash 5 Pack Pod] Ubrogepant [Ubrelvy] 100 mg PO NEEDED PRN 09/23/21 09/24/21 History Cholecalciferol (Vitamin D3) 50,000 unit PO WEEKLY 09/24/21 09/24/21 History [Vitamin D3 50,000 unit Cap] Melatonin 5 mg PO HS 09/24/21 09/24/21 History Allergies Allergy/AdvReac Type Severity Reaction Status Date / Time tramadol [TRAMADOL] Allergy Severe Swelling Verified 09/23/21 19:49 of Lip/Tongue/Throat butalbital [BUTALBITAL] Allergy Unknown Verified 09/23/21 19:49 codeine [CODEINE] Allergy Unknown Verified 09/23/21 19:49 iodine [IODINE] Allergy Unknown Verified 09/23/21 19:49 ketorolac [KETOROLAC] Allergy Unknown Verified 09/23/21 19:49 Penicillins [PENICILLINS] Allergy Unknown Verified 09/23/21 19:49 povidone-iodine Allergy Unknown Verified 09/23/21 19:49 [From BETADINE] ADHESIVES Allergy Mild blisters Uncoded 09/05/21 14:00 Exam - Constitutional Constitutional:: Present: no acute distress, comfortable - HENMT Exam HENMT: Present: normocephalic, atraumatic - Eye Exam Eyes:: Present: normal appearance both eyes and related structures - Neck Exam Neck:: Present: normal visual inspect
[2021-09-24 13:45] LABS: Acetone, Serum (Rapid) Small (None Detect)
[2021-09-24 14:11] LABS: Chloride 108 mmol/L (98-107); Sodium 129 mmol/L (136-145)
[2021-09-24 14:12] LABS: Potassium 4.2 mmoL/L (3.5-5.1)
[2021-09-24 14:14] LABS: Blood Urea Nitrogen 10 mg/dl (7-17); Creatinine Clearance Estimated 148 mL/min (50-200); Estimated Glomerular Filt Rate 144 ml/min (>60); GFR (African American) 174 ML/MIN (>60)
[2021-09-24 14:15] LABS: Anion Gap 7.2 mEq/L (5-15); Calcium 7.5 mg/dl (8.4-10.2); Carbon Dioxide 18 mmol/L (22.0-30.0); Glucose 238 mg/dl (74-100)
--- NOTE | 2021-09-24 14:50 | PC.NURSE ---
Per Tamara Gusman, LITHOGRAPH DESIGNER: bump pt insulin gtt to 6 units/hr. If pt FSBS becomes less than 150, switch MIVF to D5NS. Orders received and carried out by this RN.
[2021-09-24 16:12] LABS: POC Glucose,Bedside 82 (70-110)
[2021-09-24 17:03] LABS: POC Glucose,Bedside 78 (70-110)
[2021-09-24 18:11] LABS: POC Glucose,Bedside 173 (70-110)
[2021-09-24 18:40] LABS: Anion Gap 8.8 mEq/L (5-15); Blood Urea Nitrogen 10 mg/dl (7-17); Calcium 7.9 mg/dl (8.4-10.2); Carbon Dioxide 22 mmol/L (22.0-30.0); Chloride 109 mmol/L (98-107); Creatinine Clearance Estimated 123 mL/min (50-200); Estimated Glomerular Filt Rate 117 ml/min (>60); GFR (African American) 141 ML/MIN (>60); Glucose 154 mg/dl (74-100); Potassium 3.8 mmoL/L (3.5-5.1); Sodium 136 mmol/L (136-145)
[2021-09-24 18:42] LABS: Acetone, Serum (Rapid) Small (None Detect)
--- NOTE | 2021-09-24 18:46 | PC.NURSE ---
Addendum entered by Jesika Malcolm RN 09/24/21 19:04: 1900- FSBS of 197, continue at current rate Original Note: 0800-237, infusion remains @ 3 units/hr 1000- 217, infusion stays the same 1200- 233, infusion stays the same 1400- 187, SEE PRIOR NURSE NOTE 1600-82, insulin gtt decreased tp 3 units/hr and switched MIVF to D5NS w/ 20K+ @ 125 1700-78, insulin gtt decreased 1.5 units/hr 1800- labs drawn for acetone and BMP. FSBS 173, continue current rate
--- NOTE | 2021-09-24 21:22 | PC.NURSE ---
PT ARRIVED TO FLOOR VIA W/C FROM ED W/STAFF @ [id number]
[2021-09-24 21:51] LABS: POC Glucose,Bedside 183 (70-110)
[2021-09-24 22:25] LABS: Chloride 109 mmol/L (98-107)
[2021-09-24 22:26] LABS: Potassium 3.7 mmoL/L (3.5-5.1); Sodium 134 mmol/L (136-145)
[2021-09-24 22:28] LABS: Blood Urea Nitrogen 9 mg/dl (7-17); Creatinine Clearance Estimated 123 mL/min (50-200); Estimated Glomerular Filt Rate 117 ml/min (>60); GFR (African American) 141 ML/MIN (>60)
[2021-09-24 22:29] LABS: Anion Gap 8.7 mEq/L (5-15); Calcium 8.2 mg/dl (8.4-10.2); Carbon Dioxide 20 mmol/L (22.0-30.0); Glucose 167 mg/dl (74-100)
[2021-09-24 22:38] LABS: Acetone, Serum (Rapid) None Detected (None Detect)
[2021-09-25] VITALS (7 sets, daily range): BP systolic 103–129; BP diastolic 71–82; PULSE 40–68; RESP 16–19; TEMP 36.4–37.6; O2SAT 96–100
[2021-09-25 00:17] LABS: POC Glucose,Bedside 197 (70-110)
[2021-09-25 01:14] LABS: POC Glucose,Bedside 191 (70-110)
[2021-09-25 02:25] LABS: POC Glucose,Bedside 243 (70-110)
--- NOTE | 2021-09-25 04:43 | PC.NURSE ---
PATIENT HAS RESTED WELL THIS SHIFT. FSBS CHECKED Q2HR. INSULIN GTT INFUSING AT 2 UNITS/HR. IVF INFUSING WITHOUT DIFFICULTY. PATIENT HAS REPORTED TENDERNESS TO HER RIGHT EAR. SHE REPORTS SHE HAD AN EAR INFECTION 2 WEEKS AGO. PATIENT JUST AMBULATED TO THE BATHROOM. PATIENT HAS BEEN SINUS AURELIO TO NSR ON TELEMETRY. SERUM ACETONE IS NOT DETECTED. AWAITING AM ROUNDS TO NOTIFY PRIMARY MD. PATIENT REPORTS SHE USES AN INSULIN PUMP BUT DOES NOT HAVE IT WITH HER. PATIENT RAN A LOW GRADE TEMP EARLIER IN SHIFT BUT IS CURRENTLY AFEBRILE. NO ACUTE DISTRESS NOTED. WILL CONTINUE TO MONITOR.
[2021-09-25 04:50] LABS: POC Glucose,Bedside 206 (70-110)
[2021-09-25 05:53] LABS: Basophils # 0.1 K/mm3 (0-0.2); Basophils % 0.9 % (0.1-2.0); Eosinophils # 0.1 K/mm3 (0.0-0.4); Eosinophils % 0.9 % (0.1-12.0); Hematocrit 38.4 % (37.0-47.0); Hemoglobin 12.7 g/dL (12.2-16.2); Lymphocytes # 2.2 K/mm3 (0.7-4.5); Lymphocytes % 36.1 % (10-50); Mean Corpuscular HGB Conc 33.1 g/dL (31.8-35.4); Mean Corpuscular Volume 87.4 fl (81-99); Mean Platelet Volume 8.5 fl (7.4-10.4); Monocytes # 0.4 K/mm3 (0.1-1.0); Monocytes % 6.5 % (1.7-9.3); Neutrophils # 3.4 K/mm3 (1.8-7.8); Neutrophils % 55.6 % (37.0-80.0); Platelet Count 242 K/mm3 (142-424); Red Blood Count 4.39 M/mm3 (4.20-5.40); Red Cell Distribution Width 13.5 % (11.5-17.5); White Blood Count 6.1 K/mm3 (4.8-10.8)
[2021-09-25 05:54] LABS: Chloride 111 mmol/L (98-107)
[2021-09-25 05:55] LABS: Potassium 3.5 mmoL/L (3.5-5.1); Sodium 136 mmol/L (136-145)
[2021-09-25 05:58] LABS: Anion Gap 4.5 mEq/L (5-15); Blood Urea Nitrogen 6 mg/dl (7-17); Calcium 7.6 mg/dl (8.4-10.2); Carbon Dioxide 24 mmol/L (22.0-30.0); Creatinine Clearance Estimated 148 mL/min (50-200); Estimated Glomerular Filt Rate 144 ml/min (>60); GFR (African American) 174 ML/MIN (>60); Glucose 177 mg/dl (74-100)
[2021-09-25 06:29] LABS: POC Glucose,Bedside 141 (70-110)
[2021-09-25 09:07] LABS: POC Glucose,Bedside 110 (70-110)
--- NOTE | 2021-09-25 09:38 | HMH.ACPN2 ---
Internal Medicine - PN: Subj *Date: 09/25/21 *Time: 13:27 Interval history: feels a little better today still weak acetone neg this am insulin gtt at 1 cxr revd, looks clear Exam Vital signs and Labs for Last 24 Hours: Temp Pulse Resp BP Pulse Ox 97.8 F 68 16 103/71 L 96 09/25/21 04:00 09/25/21 04:00 09/25/21 04:00 09/25/21 04:00 09/25/21 04:00 Laboratory Results - last 24 hr 09/24/21 06:25: Sodium 129 L, Potassium 4.2, Chloride 108 H, Carbon Dioxide 18 L, Anion Gap 7.2, BUN 10, Creatinine 0.50 L, Estimated Creat Clear 148, Estimated GFR 144, Est GFR ( Amer) 174, Glucose 238 H, Calcium 7.5 L 09/24/21 12:05: Acetone Level Small 09/24/21 15:57: POC Glucose 82 09/24/21 16:55: POC Glucose 78 09/24/21 17:57: POC Glucose 173 H 09/24/21 18:03: Sodium 136, Potassium 3.8, Chloride 109 H, Carbon Dioxide 22, Anion Gap 8.8, BUN 10, Creatinine 0.60, Estimated Creat Clear 123, Estimated GFR 117, Est GFR ( Amer) 141, Glucose 154 H D, Calcium 7.9 L 09/24/21 18:03: Acetone Level Small 09/24/21 18:56: POC Glucose 197 H 09/24/21 21:39: POC Glucose 183 H 09/24/21 22:10: Sodium 134 L, Potassium 3.7, Chloride 109 H, Carbon Dioxide 20 L, Anion Gap 8.7, BUN 9, Creatinine 0.60, Estimated Creat Clear 123, Estimated GFR 117, Est GFR ( Amer) 141, Glucose 167 H, Calcium 8.2 L 09/24/21 22:10: Acetone Level None detected 09/25/21 00:06: POC Glucose 191 H 09/25/21 02:17: POC Glucose 243 H 09/25/21 04:10: POC Glucose 206 H 09/25/21 05:22: Sodium 136, Potassium 3.5, Chloride 111 H, Carbon Dioxide 24, Anion Gap 4.5 L, BUN 6 L D, Creatinine 0.50 L, Estimated Creat Clear 148, Estimated GFR 144, Est GFR ( Amer) 174 D, Glucose 177 H, Calcium 7.6 L 09/25/21 05:22: WBC 6.1, RBC 4.39, Hgb 12.7, Hct 38.4, MCV 87.4, MCH 29.0, MCHC 33.1, RDW 13.5, Plt Count 242, MPV 8.5, Neut % (Auto) 55.6, Lymph % (Auto) 36.1, [place] % (Auto) 6.5, Eos % (Auto) 0.9, Baso % (Auto) 0.9, Neut # (Auto) 3.4, Lymph # (Auto) 2.2, [place] # (Auto) 0.4, Eos # (Auto) 0.1, Baso # (Auto) 0.1 09/25/21 06:20: POC Glucose 141 H 09/25/21 08:03: POC Glucose 110 I & O for Last 24 hours: Intake & Output 09/22/21 09/23/21 09/24/21 09/25/21 23:59 23:59 23:59 23:59 Intake Total 1170 / 1170 2112 Output Total 900 / 900 Balance 270 / 270 2112 Weight 126 lb 14.4 oz 126 lb 9.607 oz - Constitutional no acute distress, cooperative - *Routine HEENT Exam Head: Present: normocephalic Eye: Present: EOMI, PERRL ENT: Present: mucous membranes moist - *Routine Neck Exam Present: supple. Absent: lymphadenopathy - *Routine Respiratory Exam Present: CTA bilaterally - *Routine Cardiovascular Exam Present: RRR - *Routine Abdominal Exam Present: soft, normoactive bowel sounds. Absent: tenderness - *Routine Extremities Exam Absent: cyanosis, clubbing, edema - *Routine Skin Exam Present: warm. Absent: rash - *Routine Neurological Exam Present: alert, oriented X3 Assessment and Plan (1) COVID-19 Status: Acute Category: Medical Code(s): U07.1 - COVID-19 (2) DKA (diabetic ketoacidoses) Status: Acute Qualifiers: Diabetes mellitus type: type 1 Diabetes mellitus complication detail: without coma Qualified Code(s): E10.10 - Type 1 diabetes mellitus with ketoacidosis without coma Category: Medical Code(s): E13.10 - Other specified diabetes mellitus with ketoacidosis without coma (3) Abdominal pain Status: Acute Qualifiers: Abdominal location: generalized Qualified Code(s): R10.84 - Generalized abdominal pain Category: Medical Code(s): R10.9 - Unspecified abdominal pain (4) Diabetes mellitus, insulin dependent (IDDM), controlled Status: Acute Category: Medical - Assessment and plan all Dx Assessment and Plan for all problems:: ivf zofran change to insulin coverage protocol po as tolerated
[2021-09-25 09:54] LABS: POC Glucose,Bedside 218 (70-110)
[2021-09-25 09:54] LABS: POC Glucose,Bedside 184 (70-110)
--- NOTE | 2021-09-25 11:17 | PC.NURSE ---
on morning rounds md stated to turn of insulin gtt, start ns at 150ml/hr and take out of stepdown. patient will be started on medium intensity sliding scale [id number] spoke with melissa mims about patient requesting pain medication at 1015 md office called back stating md wanted to order 8mg iv zofran every 6 hours as needed for nausea also noted patient heart rate maintains low 40s. did make md aware.
[2021-09-25 17:02] LABS: POC Glucose,Bedside 198 (70-110)
[2021-09-25 17:02] LABS: POC Glucose,Bedside 214 (70-110)
[2021-09-25 20:22] LABS: POC Glucose,Bedside 212 (70-110)
[2021-09-26] VITALS: BP 133/57; PULSE 53; PULSE 56; RESP 17; TEMP 36.6; O2SAT 98
--- NOTE | 2021-09-26 03:26 | PC.NURSE ---
PT REQUESTED VEGETABLE SOUP AND SALTINES. SITTING UP IN BED EATING AT THIS TIME.
[2021-09-26 04:00] VITALS: PULSE 50
--- NOTE | 2021-09-26 04:02 | PC.NURSE ---
PATIENT HAS BEEN UP MOST OF THE NIGHT. SHE AMBULATED TO SHOWER EARLIER IN SHIFT. IV SITE REMAINS PATENT AND IS INFUSING WITHOUT DIFFICULTY. LUNGS REMAIN CTA. VSS. NO ACUTE DISTRESS NOTED. WILL CONTINUE TO MONITOR.
[2021-09-26 04:29] VITALS: BP 122/68; PULSE 50; RESP 17; TEMP 36.7; O2SAT 98
[2021-09-26 06:35] LABS: POC Glucose,Bedside 306 (70-110)
[2021-09-26 06:39] LABS: Basophils # 0.1 K/mm3 (0-0.2); Basophils % 0.9 % (0.1-2.0); Eosinophils # 0.1 K/mm3 (0.0-0.4); Eosinophils % 0.7 % (0.1-12.0); Hematocrit 39.7 % (37.0-47.0); Hemoglobin 13.1 g/dL (12.2-16.2); Lymphocytes # 2.5 K/mm3 (0.7-4.5); Lymphocytes % 31.1 % (10-50); Mean Corpuscular HGB Conc 32.9 g/dL (31.8-35.4); Mean Corpuscular Hemoglobin 28.3 pg (27.0-31.2); Mean Platelet Volume 8.3 fl (7.4-10.4); Monocytes # 0.4 K/mm3 (0.1-1.0); Monocytes % 4.5 % (1.7-9.3); Neutrophils % 62.7 % (37.0-80.0); Platelet Count 245 K/mm3 (142-424); Red Blood Count 4.62 M/mm3 (4.20-5.40); Red Cell Distribution Width 13.4 % (11.5-17.5)
--- NOTE | 2021-09-26 06:54 | PC.NURSE ---
2200 PT SITTING UP IN BED EATING HARDEES. TOLERATING FOOD WELL.
[2021-09-26 08:00] VITALS: BP 112/72; PULSE 56; PULSE 57; RESP 16; TEMP 36.6; O2SAT 97
--- NOTE | 2021-09-26 09:40 | HMH.DCSUM ---
General - General Admission date:: 09/23/21 Discharge date: 09/26/21 HPI HPI: 31 yr old female presented to ed with c/o of n/v/d since sat and glucose elevated. pt states she has been coughing and not feeling well since sat. Pt states her glucose has been going up and down but did improve once pump was increased until she became ill with n/v/d. Pt was found to be in DKA and covid +. Admitted and placed on insulin drip. 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 She also admits personal history of asthma and has been using albuterol as needed. She is a current smoker smoking 0.5 to 1 pack a day She is not vaccinated for COVID-19 pneumonia No evidence of leukocytosis. Chest x-ray clear with no acute pulmonary infiltrates. Clear to auscultate with no wheezing. Patient saturating 96 to 97% on room air. Plan: -Albuterol every 6 hours as needed -Given patient saturations on room air greater than 94% patient does not need any active treatment for COVID-19 pneumonia however given her risk factors for insulin-dependent diabetes and vaccination patient does qualify for prophylactic medications to prevent to have acute COVID-19 pneumonia like Molnupiravir, Paxlovid or Sotrovimab Will recommend consulting pharmacy to evaluate availability of such medications and if so to administer. -Recommend chemical DVT prophylaxis. We will also recommend obtaining records regarding patient's factor V deficiency and if so will recommend initiating patient on anticoagulation therapy. pt has improved and augie diet and activity and will resume insulin pump and close follow up in office and usual covid-19 precautions Objective Vital signs: Temp Pulse Resp BP Pulse Ox 97.8 F 57 L 16 112/72 97 09/26/21 08:00 09/26/21 08:00 09/26/21 08:00 09/26/21 08:00 09/26/21 08:00 no acute distress - *Routine HEENT Exam Head: Present: normocephalic Eye: Present: EOMI, PERRL ENT: Present: mucous membranes dry - *Routine Neck Exam Absent: JVD - *Routine Respiratory Exam Present: CTA bilaterally - *Routine Cardiovascular Exam Present: RRR - *Routine Abdominal Exam Present: soft - *Routine Extremities Exam Absent: calf tenderness - *Routine Skin Exam Present: intact - *Routine Neurological Exam Present: alert, oriented X3, CN II-XII intact - Routine Psychiatric Exam Present: normal affect Results Labs on day of discharge: Labs from last 24 hours 09/26/21 09/26/21 09/25/21 06:26 05:32 20:10 WBC 8.0 D RBC 4.62 Hgb 13.1 Hct 39.7 MCV 86.0 MCH 28.3 MCHC 32.9 RDW 13.4 Plt Count 245 MPV 8.3 Neut % (Auto) 62.7 Lymph % (Auto) 31.1 [place] % (Auto) 4.5 Eos % (Auto) 0.7 Baso % (Auto) 0.9 Neut # (Auto) 5.0 Lymph # (Auto) 2.5 [place] # (Auto) 0.4 Eos # (Auto) 0.1 Baso # (Auto) 0.1 POC Glucose 306 H* 212 H 09/25/21 09/25/21 09/24/21 16:49 10:43 14:10 WBC RBC Hgb Hct MCV MCH MCHC RDW Plt Count MPV Neut % (Auto) Lymph % (Auto) [place] % (Auto) Eos % (Auto) Baso % (Auto) Neut # (Auto) Lymph # (Auto) [place] # (Auto) Eos # (Auto) Baso # (Auto) POC Glucose 198 H 214 H 184 H 09/24/21 10:40 WBC RBC Hgb Hct MCV MCH MCHC RDW Plt Count MPV Neut % (Auto) Lymph % (Auto) [place] % (Auto) Eos % (Auto) Baso % (Auto) Neut # (Auto) Lymp
--- NOTE | 2021-09-26 10:44 | PC.NURSE ---
Spoke with pt she stated that she has contacted her , brother in law, and father they all didn't feel like that they were able to get her in this weather. She stated that she was going to try an contact her again.
[2021-09-26 11:16] LABS: POC Glucose,Bedside 199 (70-110)
[2021-09-26 11:26] VITALS: BP 123/73; PULSE 62; RESP 20; TEMP 36.8; O2SAT 98
--- NOTE | 2021-09-26 11:32 | PC.NURSE ---
Checked with pt about ride. She stated that she still hasn't been able to get a hold of anyone to come get her. She would continue to try and get a hold of and father.
--- NOTE | 2021-09-26 12:09 | PC.NURSE ---
Pt got a hold of family member they're coming to get her within the hour. Contacted meds to beds to let them know she is getting ready to go.
--- NOTE | 2021-09-26 12:29 | PC.NURSE ---
Spoke with kristofer from pharmacy pt's medications are not in till wednesday. She will have to come then to acquire medication.
[2021-09-26 12:43] LABS: INR 0.95 (0.9-1.1); Prothrombin Time 10.8 seconds (10.1-12.5)
[2021-09-27 04:09] LABS: Homocyst(e)ine 4.9 umol/L (0.0-14.5)
[2021-09-28 15:08] LABS: Protein C Antigen 90 % (60-150)
[2021-09-28 16:19] LABS: Anti-Thrombin III Antigen 76 % (72-124); Antithrombin Activity 107 % (75-135); Factor VIII Activity 173 % (56-140); Protein C Functional 113 % (73-180); Protein S, Free 78 % (61-136); Protein S, Total 79 % (60-150); Protein S-Functional 58 % (63-140)
== END 2021-09-26 12:40 | disposition home or self-care (01) | DRG 637 ==
LOC: ER 17:49 → ICU 09-24 07:23 → 2ND 09-24 14:26
PROVIDERS: Nurse Practitioner Family; Admitting Provider Emergency Medicine; Emergency Provider Emergency Medicine; PCP Nurse Practitioner Family; Visit Provider Emergency Medicine
DX: E11.10 Type 2 diabetes mellitus with ketoacidosis without coma (principal); U07.1 COVID-19; D68.51 Activated protein C resistance; Z88.1 Allergy status to other antibiotic agents; Z88.0 Allergy status to penicillin; Z88.8 Allergy status to other drugs, medicaments and biological substances; Z79.4 Long term (current) use of insulin
CPT/HCPCS: 36415; 71045; 80048; 80053; 81001; 81241; 82009; 82803; 82962; 83090; 85025; 85240; 85300; 85301; 85302; 85305; 85306; 85610; 86148; 87275; 87276; 96365; 96366; 96375; 99284; C9803; J2405; U0003; U0005

== ENCOUNTER 2021-10-02 16:18 | Inpatient (IN) | payer OTHER, SELFPAY ==
[2021-10-02] VITALS (10 sets, daily range): BP systolic 123–159; BP diastolic 77–88; PULSE 103–143; RESP 22–28; TEMP 36.4; O2SAT 98–100; BMI 18.7
--- NOTE | 2021-10-02 16:35 | XR_ITS ---
PROCEDURE INFORMATION: Exam: XR Chest Exam date and time: 10/02/2021 4:35 PM Age: 31 years old Clinical indication: Cough; Additional info: SOA, covid pos, cough TECHNIQUE: Imaging protocol: XR of the chest. Views: 1 view. COMPARISON: CR XR CHEST PORTABLE 09/24/2021 9:14 AM FINDINGS: Lungs: Faint infiltrate at the right lung base. Pleural spaces: Unremarkable. No pleural effusion. No pneumothorax. Heart/Mediastinum: Unremarkable. No cardiomegaly. Bones/joints: Unremarkable. IMPRESSION: Faint right lung base infiltrate may represent pneumonia.
[2021-10-02 16:38] LABS: POC Glucose,Bedside 558 (70-110)
[2021-10-02 17:41] LABS: VBG Base Excess -27.4 mmol/L (-2.4-2.3); VBG HCO3 5.2 mmol/L (23-30); VBG Oxygen Saturation 79.5 % (50-70); VBG PO2 49.6 mmol/L (28-40)
[2021-10-02 17:43] LABS: VBG PH 6.92 mmol/L (7.31-7.41)
[2021-10-02 17:43] LABS: Basophils # 0.3 K/mm3 (0-0.2); Basophils % 1.2 % (0.1-2.0); Eosinophils % 0.1 % (0.1-12.0); Hematocrit 56.4 % (37.0-47.0); Lymphocytes # 1.3 K/mm3 (0.7-4.5); Lymphocytes % 5.8 % (10-50); Mean Corpuscular HGB Conc 32.5 g/dL (31.8-35.4); Mean Corpuscular Hemoglobin 29.3 pg (27.0-31.2); Mean Corpuscular Volume 90.2 fl (81-99); Mean Platelet Volume 9.2 fl (7.4-10.4); Monocytes # 0.5 K/mm3 (0.1-1.0); Monocytes % 2.1 % (1.7-9.3); Neutrophils # 20.8 K/mm3 (1.8-7.8); Neutrophils % 90.7 % (37.0-80.0); Platelet Count 541 K/mm3 (142-424); Red Blood Count 6.25 M/mm3 (4.20-5.40); Red Cell Distribution Width 13.2 % (11.5-17.5)
[2021-10-02 17:47] LABS: MANUAL DIFFERENTIAL MANUAL DIFFERENTIAL (MANUAL DIFF)
--- NOTE | 2021-10-02 17:50 | HMH.EDGENADL ---
ED Disposition Clinical Impression: DKA (diabetic ketoacidosis) Qualifiers: Diabetes mellitus type: type 1 Diabetes mellitus complication detail: without coma Qualified Code(s): E10.10 - Type 1 diabetes mellitus with ketoacidosis without coma Pneumonia Qualifiers: Pneumonia type: due to unspecified organism Laterality: right Lung location: lower lobe of lung Qualified Code(s): J18.9 - Pneumonia, unspecified organism Disposition: Admitted As Inpatient Condition on Discharge: Serious - Critical Care Critical Care Time: Yes Attestation: On 10/02/21, the high probability of a clinically significant, sudden or life threatening deterioration of the following system(s) required my full and direct attention, intervention and personal management. The time I documented below is in addition to time spent performing reported procedures but includes the following listed in this critical care notation. Total Critical Care Time: 35 Vital system(s) involved:: Metabolic Failure My critical care processes included: Assessment & monitoring of V/S, Initial and Re-exams, Data Review/Interpretation, Coordinating Care, Medication Orders and management, Documentation Medical Decision Making - Medical Records Medical records reviewed: Yes: I reviewed the patient's medical records. MR Comment: Reviewed discharge summary from admission 09/23/2021 through 09/26/2021. - Jasbir Inquiry Pt receiving controlled substance: Yes Jasbir was queried for this patient: Yes Risks and benefits of using a controlled substance: were not discussed with pt by me Vital Signs: 10/02/21 16:20 10/02/21 19:30 Temperature 97.5 F L Temperature Source Oral Pulse Rate 103 H Pulse Rate [Right Radial] 121 H Respiratory Rate 22 Blood Pressure 157/86 H Blood Pressure [Right Arm] 123/81 Blood Pressure Mean [Right Arm] 95 Blood Pressure Source [Right Arm] Automatic Cuff Blood Pressure Position [Right Arm] Sitting 02 Sat by Pulse Oximetry 98 100 Oxygen Delivery Method Room Air - Lab Data Lab Results 10/02/21 16:30: POC Glucose 558 H* 10/02/21 17:25: WBC 23.0 H*, RBC 6.25 H, Hgb 18.2 H, Hct 56.4 H, MCV 90.2, MCH 29.3, MCHC 32.5, RDW 13.2, Plt Count 541 H, MPV 9.2, Neut % (Auto) 90.7 H, Lymph % (Auto) 5.8 L, [place] % (Auto) 2.1, Eos % (Auto) 0.1, Baso % (Auto) 1.2, Neut # (Auto) 20.8 H, Lymph # (Auto) 1.3, [place] # (Auto) 0.5, Eos # (Auto) 0.0, Baso # (Auto) 0.3 H, Total Counted 100, Neutrophils % (Manual) 91 H, Lymphocytes % (Manual) 7 L, Monocytes % (Manual) 2, Platelet Estimate Marked increase, RBC Morphology Not Reportable 10/02/21 17:25: Sodium 131 L, Potassium 5.4 H, Chloride 96 L, Carbon Dioxide < 5 L*, Anion Gap 35.4 H, BUN 16, Creatinine 1.20 H, Estimated Creat Clear 60, Estimated GFR 52 L, Est GFR ( Amer) 63, Glucose 494 H*, Calcium 9.4, Total Bilirubin 0.7, AST 39 H, ALT 29, Alkaline Phosphatase 143 H, Total Protein 10.2 H D, Albumin > 6.0 H, Globulin 4.2 H, Albumin/Globulin Ratio 1.4 10/02/21 17:25: Lactate 3.2 H 10/02/21 17:25: Acetone Level Large 10/02/21 17:25: Phosphorus 7.6 H, Magnesium 2.0 10/02/21 17:32: VBG pH 6.92 L, VBG pCO2 26.0 L, VBG pO2 49.6 H, VBG HCO3 5.2 L, VBG Total CO2 6.0 L, VBG O2 Saturation 79.5 H, VBG Base Excess -27.4 L 10/02/21 18:10: SARS-CoV-2 (PCR) Detected A, Influenza A Untype (PCR) Not detected, Influenza Type B (PCR) Not detected 10/02/21 18:27: Urine Color Yellow, Urine Appearance Clear, Urine pH 5.5, Ur Specific [place] >= 1.030, Urine Protein 1+, Urine Glucose (UA) 1+, Urine Ketones 3+, Urine Blood 1+, Urine Nitrate Negative, Urine Bilirubin 1+ A, Urine Urobilinogen 0.2, Ur Leukocyte Esterase Negative, Urine RBC Occasional, Urine WBC None, Ur Squamous Epith Cells 3-5, Urine Bacteria None 10/02/21 19:21: POC Glucose 479 H* Result diagrams: 10/02/21 17:25 10/02/21 17:25 Orders (Tests/Meds): ED MEDICATIONS Generic Name Dose Route Start Last Admin Trade Name Freq PRN Reason Stop Dose Admin Sodium Chloride 250 mls @
[2021-10-02 18:15] LABS: Lactic Acid 3.2 mmol/L (0.7-2.1)
[2021-10-02 18:22] LABS: Hemoglobin 18.2 g/dL (12.2-16.2)
[2021-10-02 18:24] LABS: Chloride 96 mmol/L (98-107); Potassium 5.4 mmoL/L (3.5-5.1); Sodium 131 mmol/L (136-145)
[2021-10-02 18:27] LABS: Alanine Aminotransferase 29 U/L (12-78); Alkaline Phosphatase 143 U/L (38-126); Aspartate Amino Transferase 39 U/L (14-36); Bilirubin,Total 0.7 mg/dl (0.2-1.3); Blood Urea Nitrogen 16 mg/dl (7-17); Creatinine Clearance Estimated 60 mL/min (50-200); Estimated Glomerular Filt Rate 52 ml/min (>60); GFR (African American) 63 ML/MIN (>60); Total Protein,Serum 10.2 g/dl (6.3-8.2)
[2021-10-02 18:28] LABS: Calcium 9.4 mg/dl (8.4-10.2)
[2021-10-02 18:32] LABS: Anion Gap 35.4 mEq/L (5-15)
[2021-10-02 18:33] LABS: Acetone, Serum (Rapid) Large (None Detect); Carbon Dioxide < 5 mmol/L (22.0-30.0); Glucose 494 mg/dl (74-100)
--- NOTE | 2021-10-02 18:34 | PC.NURSE ---
Critical labs called to Toyin, RN Co2 <5 Glucose 494
[2021-10-02 18:36] LABS: Albumin Level > 6.0 g/dl (3.5-5.0); Albumin/Globulin Ratio 1.4 (1.1-1.8); Globulin 4.2 g/dL (1.3-3.2)
[2021-10-02 18:37] LABS: Microscopic, Urine URINE MICROSCOPIC (MICROSCOPIC)
[2021-10-02 18:50] LABS: Appearance,Urine CLEAR (Clear); Blood, Urine 1+ (Negative); Color,Urine YELLOW (Yellow); Glucose,Urine (UA) 1+ (Negative); Ketones,Urine 3+ (Negative); Leukocyte Esterase,Urine Negative (Negative); Nitrate,Urine Negative (Negative); PH,Urine 5.5 (5.0-8.5); Protein,Urine 1+ (Negative); Specific Gravity, Urine >= 1.030 (1.005-1.030); Urobilinogen,Urine 0.2 EU/dl (0.2)
[2021-10-02 18:50] LABS: Influenza A, PCR Not Detected (NotDetected); Influenza B, PCR Not Detected (NotDetected)
[2021-10-02 18:54] LABS: Bilirubin,Urine 1+ (Negative)
[2021-10-02 19:31] LABS: RBC,Urine Occasional #/hpf (0-3)
[2021-10-02 19:33] LABS: POC Glucose,Bedside 479 (70-110)
[2021-10-02 19:54] LABS: Phosphorous 7.6 mg/dl (2.5-4.5)
[2021-10-02 20:00] LABS: Coronavirus 19, PCR Detected (NotDetected)
[2021-10-02 20:03] LABS: Lymphocytes % 7 % (10-50); Monocytes % 2 % (2-9); Neutrophils % 91 % (42-76); Platelet Estimate Marked Increase; Total Cells Counted 100
--- NOTE | 2021-10-02 20:05 | PC.NURSE ---
ER informed that we have no bed availability. Patient will board in ED and be managed by ED staff until bed becomes available.
[2021-10-02 21:38] LABS: Reflex Lactic Add Lactic Reflex
--- NOTE | 2021-10-02 21:45 | PC.NURSE ---
Finger stick 437. Insulin gtt increased to 9 units/hr per protocol.
[2021-10-02 21:48] LABS: POC Glucose,Bedside 437 (70-110)
[2021-10-02 22:28] LABS: Lactic Acid Follow Up (RFLX 1) 2.2 mmol/L (0.7-2.1)
--- NOTE | 2021-10-02 22:29 | PC.NURSE ---
aware of HR. Verbal orders for 1L NS bolus IV now per MD Jannette.
--- NOTE | 2021-10-02 22:45 | PC.NURSE ---
Addendum entered by Payam Bledsoe RN 10/02/21 22:57: Insulin gtt at 4.5 units/hr Original Note: FS of 312. Insulin gtt decreased by 50% per protocol for decrease greater than 100 in 1 hour.
--- NOTE | 2021-10-02 23:45 | PC.NURSE ---
FS of 262. Insulin gtt increased by 50% per protocol to 9 units/hr
[2021-10-03] VITALS (27 sets, daily range): BP systolic 100–150; BP diastolic 50–85; PULSE 60–115; RESP 13–24; TEMP 36.6–37.3; O2SAT 96–100; BMI 18.6; BMI 18.3
[2021-10-03 00:03] LABS: POC Glucose,Bedside 312 (70-110)
[2021-10-03 00:05] LABS: Reflex Lactic (2 hrs) Add Lactic Reflex
--- NOTE | 2021-10-03 00:36 | PC.NURSE ---
FS is 192. No changes to gtt per protocol. Continuing at 9 units/hr
[2021-10-03 00:58] LABS: Blood Urea Nitrogen 14 mg/dl (7-17); Calcium 8.3 mg/dl (8.4-10.2); Chloride 114 mmol/L (98-107); Creatinine Clearance Estimated 80 mL/min (50-200); Estimated Glomerular Filt Rate 73 ml/min (>60); GFR (African American) 88 ML/MIN (>60); Glucose 198 mg/dl (74-100); Lactic Acid Follow up (RFLX 2) 1.2 mmol/L (0.7-2.1); Potassium 5.1 mmoL/L (3.5-5.1); Sodium 140 mmol/L (136-145)
[2021-10-03 01:00] LABS: Anion Gap 26.1 mEq/L (5-15)
[2021-10-03 01:01] LABS: Carbon Dioxide < 5 mmol/L (22.0-30.0)
--- NOTE | 2021-10-03 01:45 | PC.NURSE ---
FS 143. Insulin gtt decreased by 50% to 4.5 units/hr per protocol. Will attempt new IV to start D5NS.
[2021-10-03 01:48] LABS: POC Glucose,Bedside 143 (70-110)
--- NOTE | 2021-10-03 02:05 | PC.NURSE ---
House attempting IV access for D5NS to be infused.
--- NOTE | 2021-10-03 02:25 | PC.NURSE ---
US guided IV inserted in right AC #20g. D5NS started at 75ml/hr per protocol.
[2021-10-03 02:41] LABS: Acetone, Serum (Rapid) Small (None Detect)
--- NOTE | 2021-10-03 02:44 | PC.NURSE ---
FS 119. Insulin gtt decreased to 2.5 units/hr. D5NS infusing at 75ml/hr per protocol.
--- NOTE | 2021-10-03 03:45 | PC.NURSE ---
FS 113. Insulin gtt decreased to 1 unit/hr. D5NS infusing at 75ml/hr per protocol.
[2021-10-03 04:17] LABS: Chloride 111 mmol/L (98-107); Potassium 4.3 mmoL/L (3.5-5.1); Sodium 131 mmol/L (136-145)
[2021-10-03 04:17] LABS: POC Glucose,Bedside 113 (70-110)
[2021-10-03 04:17] LABS: POC Glucose,Bedside 262 (70-110)
[2021-10-03 04:17] LABS: POC Glucose,Bedside 192 (70-110)
[2021-10-03 04:17] LABS: POC Glucose,Bedside 119 (70-110)
[2021-10-03 04:20] LABS: Anion Gap 16.3 mEq/L (5-15); Blood Urea Nitrogen 12 mg/dl (7-17); Creatinine Clearance Estimated 103 mL/min (50-200); Estimated Glomerular Filt Rate 98 ml/min (>60); GFR (African American) 118 ML/MIN (>60)
[2021-10-03 04:21] LABS: Calcium 7.3 mg/dl (8.4-10.2); Glucose 257 mg/dl (74-100)
[2021-10-03 04:25] LABS: Carbon Dioxide 8 mmol/L (22.0-30.0)
--- NOTE | 2021-10-03 04:33 | PC.NURSE ---
Lab redrawn for glucose at 0400 bmp
--- NOTE | 2021-10-03 04:45 | PC.NURSE ---
FS of 118. No changes to insulin gtt. Infusing at 1 unit/hr. D5NS at 75ml/hr.
[2021-10-03 04:46] LABS: Glucose,Random 241 mg/dL (74-100)
[2021-10-03 04:54] LABS: POC Glucose,Bedside 118 (70-110)
--- NOTE | 2021-10-03 05:45 | PC.NURSE ---
FS 175. Insulin gtt increased to 2 units/hr per MD. D5NS to continue at 75ml/hr
[2021-10-03 05:56] LABS: POC Glucose,Bedside 175 (70-110)
--- NOTE | 2021-10-03 06:47 | PC.NURSE ---
FS 155. No changes to insulin gtt, infusing at 2 units/hr. D5NS infusing at 75ml/hr. No needs stated by pt.
[2021-10-03 06:52] LABS: POC Glucose,Bedside 155 (70-110)
--- NOTE | 2021-10-03 07:50 | PC.NURSE ---
FS 168. Will continue Insulin gtt @ 2units/hr. D5NS continues @ 75ml/hr
[2021-10-03 08:05] LABS: Anion Gap 18.7 mEq/L (5-15); Blood Urea Nitrogen 13 mg/dl (7-17); Calcium 8.4 mg/dl (8.4-10.2); Carbon Dioxide 11 mmol/L (22.0-30.0); Chloride 112 mmol/L (98-107); Creatinine Clearance Estimated 103 mL/min (50-200); Estimated Glomerular Filt Rate 98 ml/min (>60); GFR (African American) 118 ML/MIN (>60); Glucose 172 mg/dl (74-100); Potassium 4.7 mmoL/L (3.5-5.1); Sodium 137 mmol/L (136-145)
[2021-10-03 08:09] LABS: POC Glucose,Bedside 168 (70-110)
--- NOTE | 2021-10-03 08:17 | CT_ITS ---
FINAL REPORT CLINICAL HISTORY: abd pain, VOMITING COMPARISON: 06/20/2019 FINDINGS: Technique: The patient was injected with intravenous contrast. Axial images through the abdomen and pelvis were performed. This study was performed with techniques to keep radiation doses as low as reasonably achievable (ALARA). Individualized dose reduction techniques using automated exposure control or adjustment of mA and/or kV according to the patient's size were employed. Abdomen: There is a calcified granuloma in the left lung base. The liver is normal in size and attenuation. The patient is status post cholecystectomy. There is no biliary ductal dilatation. The spleen is unremarkable. The adrenals are normal. The pancreas is unremarkable. The kidneys enhance appropriately. The aorta is normal in caliber. There is no free fluid or adenopathy. Pelvis: The appendix is not seen, may be surgically absent. The patient is status post hysterectomy. Numerous phleboliths are seen in the pelvis. There is no localized inflammatory process. There is a moderate amount of retained stool throughout the colon. The urinary bladder is unremarkable. There is no free fluid or adenopathy. IMPRESSION: No localized inflammatory process. Stool-filled colon. Reviewed, Interpreted and Dictated by Laron Graham III, MD Transcribed by Leonela Hdez Authenticated by Laron Graham III, MD on 10/03/2021 11:04:25 AM [facility]
[2021-10-03 08:19] LABS: Acetone, Serum (Rapid) Small (None Detect)
--- NOTE | 2021-10-03 08:44 | HMH.HP ---
*Admission Date: 10/03/21 *Chief complaint: dka *History of present illness: 31 yr old female presents to ed with c/o vomiting,abd pain, hyperglycemia, and covid. pt states she went home and felt good for 2 days but then began to have abd pain,vomiting and glucose over 600. pt states she continued using her insulin pump but it yesterday. pt states she could not keep any food or liquids down. Pt admitted for DKA and covid pneumonia. Placed on insulin pump. [facility] History I have reviewed the patient's past medical history: Yes Medical History: Reports:: Anxiety, Deep Vein Thrombosis, Depression, Diabetes Mellitus Type 1, Pulmonary Embolism, Seizures Denies:: Cancer, Diabetes Mellitus Type 2, Internal Pacemaker, MRSA *Have you ever received a pneumonia vaccine?: Yes *Have you received a flu vaccine this season?: No Other Medical History: Denies: Blood Transfusion Reaction Other Surgeries: Yes: Appendectomy, Cholecystectomy, , Hysterectomy-Total, Hysterectomy-Partial, Other. No: Pacemaker Amputation: No Fractures: No - *Social History Smoking Status: Current every day smoker Tobacco Type: cigarettes # Packs/Day (cigarettes): 1 Alcohol Intake: never Substance Use Type: crack/cocaine *Occupational Status:: other Housing: house Household Members: spouse *Travel in the last 8 weeks: None - Psychiatric History Pschychiatric History:: Reports:: Anxiety, Depression Family Hx:: Asthma, Diabetes, Hypertension Review of Systems - Review of Systems Review of systems:: pertinent systems reviewed and negative unless documented below - Constitutional Reports body ache(s), Reports fatigue - Eyes Denies blurry vision - ENT Denies dizziness - *Cardiovascular Denies chest pain at rest - *Respiratory Reports cough - *Gastrointestinal Reports abdominal pain, Reports nausea, Reports vomiting - *Genitourinary Denies urinary incontinence - *Musculoskeletal Denies joint pain - Integumentary/Breasts Denies rash - *Neurologic Denies dizziness - Psychiatric Denies lack of enjoyment - Endocrine Denies excessive sweating - Hematologic/Lymphatic Denies easy bruising - Allergic/Immunologic Denies itchy eyes Meds Home Medications Medication Instructions Recorded Confirmed Type albuterol sulfate 90 mcg/actuation 1 puff INHALATION Q6H #6.7 g 09/03/20 09/23/21 Rx aerosol inhaler cholecalciferol (vitamin D3) 50 2,000 unit PO DAILY #90 cap 09/03/20 09/23/21 Rx mcg (2,000 unit) capsule Insulin Pump Cartridge [Omnipod See Rx Instructions SQ .MEDSUPPLY 09/23/21 09/23/21 History Dash] Ubrogepant [Ubrelvy] 100 mg PO NEEDED PRN 09/23/21 09/24/21 History Cholecalciferol (Vitamin D3) 50,000 unit PO WEEKLY 09/24/21 09/24/21 History [Vitamin D3 50,000 unit Cap] Melatonin 5 mg PO HS 09/24/21 09/24/21 History insulin lispro 100 unit/mL 1 sliding scale dose SQ 09/26/21 Rx subcutaneous solution DIRECTED #10 ml insulin pump cart,cont inf,BT See Rx Instructions .ROUTE #5 each 09/26/21 Rx Allergies Allergy/AdvReac Type Severity Reaction Status Date / Time tramadol [TRAMADOL] Allergy Severe Swelling Verified 09/23/21 19:49 of Lip/Tongue/Throat butalbital [BUTALBITAL] Allergy Unknown Verified 09/23/21 19:49 codeine [CODEINE] Allergy Unknown Verified 09/23/21 19:49 iodine [IODINE] Allergy Unknown Verified 09/23/21 19:49 ketorolac [KETOROLAC] Allergy Unknown Verified 09/23/21 19:49 Penicillins [PENICILLINS] Allergy Unknown Verified 09/23/21 19:49 povidone-iodine Allergy Unknown Verified 09/23/21 19:49 [From BETADINE] ADHESIVES Allergy Mild blisters Uncoded 09/05/21 14:00 Exam Vital signs and Labs for Last 24 Hours: Temp Pulse Resp BP Pulse Ox 97.9 F 89 17 118/68 98 10/03/21 02:30 10/03/21 06:30 10/03/21 06:30 10/03/21 06:30 10/03/21 06:30 Laboratory Results - last 24 hr 10/02/21 16:30: POC Glucose 558 H* 10/02/21 17:25: WBC 23.0 H*, RBC 6.25 H
--- NOTE | 2021-10-03 08:44 | PC.NURSE ---
Radiology called to confirm ax to iodine. S/W pt and she has had CT with IV contrast previously and had no issues. Pt reports her ax to topical iodine with rash/hives.
--- NOTE | 2021-10-03 08:56 | PC.NURSE ---
Pt to Rad
--- NOTE | 2021-10-03 09:06 | PC.NURSE ---
pt back from CT scan
--- NOTE | 2021-10-03 09:20 | PC.NURSE ---
Dr. De La O at bedside
--- NOTE | 2021-10-03 09:33 | PC.NURSE ---
per Alda Gusman APRN wants to increase IVF to 125mL/hr of the D5NS fluids that are currently running at 75 mL/hr. We also are increasing insulin drip to 4 units/hr per a conversation with Krystian in pharmacy and ALMA Ribeiro, krystian states he is changing the insulin drip in the computer.
--- NOTE | 2021-10-03 09:39 | PC.NURSE ---
FS 143. Per Tamara Gusman APRN and [facility], increase Insulin gtt to 4unit/hr and D5NS to 125ml/hr.
[2021-10-03 09:42] LABS: POC Glucose,Bedside 143 (70-110)
[2021-10-03 12:00] LABS: POC Glucose,Bedside 168 (70-110)
--- NOTE | 2021-10-03 12:11 | PC.NURSE ---
Attempted 4x to collect labs for 1200, unable to obtain. Notified lab.
[2021-10-03 12:57] LABS: Acetone, Serum (Rapid) Small (None Detect)
[2021-10-03 12:59] LABS: Chloride 111 mmol/L (98-107); Potassium 3.9 mmoL/L (3.5-5.1); Sodium 132 mmol/L (136-145)
[2021-10-03 13:02] LABS: Anion Gap 10.9 mEq/L (5-15); Blood Urea Nitrogen 12 mg/dl (7-17); Carbon Dioxide 14 mmol/L (22.0-30.0); Creatinine Clearance Estimated 120 mL/min (50-200); Estimated Glomerular Filt Rate 117 ml/min (>60); GFR (African American) 141 ML/MIN (>60)
[2021-10-03 13:03] LABS: Calcium 7.8 mg/dl (8.4-10.2); Glucose 139 mg/dl (74-100)
--- NOTE | 2021-10-03 13:20 | PC.NURSE ---
Addendum entered by Patty Ron RN 10/03/21 15:01: Also new order to increase Insulin gtt to 6units/hr Original Note: s/e E Naseem [employer]: new order for NS @ 150ml/hr, stop D5NS at this time & restart @ 50ml/hr is FS <120, BMP & serum acetone @ 1800 10/03.
--- NOTE | 2021-10-03 15:00 | PC.NURSE ---
FS 106, restarted D5NS @ 50ml/hr
--- NOTE | 2021-10-03 16:03 | PC.NURSE ---
FS 81, per DKA flow chart: decreased Insulin gtt to 3units/hr and increased d5NS to 125ml/hr. E Naseem MARQUEZ was notified.
[2021-10-03 16:17] LABS: POC Glucose,Bedside 81 (70-110)
[2021-10-03 16:55] LABS: POC Glucose,Bedside 96 (70-110)
--- NOTE | 2021-10-03 17:07 | PC.NURSE ---
FS 96. will continue Insulin gtt @ 3units/hr, NS @ 150ml/hr, & D5NS @ 125ml/hr
--- NOTE | 2021-10-03 17:54 | PC.NURSE ---
FS 81: Decreased insulin gtt 1.5units /hr, continue D5NS @ 125ml/hr, and continue NS @ 150ml/hr
[2021-10-03 18:00] LABS: POC Glucose,Bedside 81 (70-110)
[2021-10-03 18:21] LABS: Anion Gap 10.3 mEq/L (5-15); Blood Urea Nitrogen 11 mg/dl (7-17); Calcium 7.8 mg/dl (8.4-10.2); Carbon Dioxide 15 mmol/L (22.0-30.0); Chloride 116 mmol/L (98-107); Creatinine Clearance Estimated 144 mL/min (50-200); Estimated Glomerular Filt Rate 144 ml/min (>60); GFR (African American) 174 ML/MIN (>60); Potassium 3.3 mmoL/L (3.5-5.1); Sodium 138 mmol/L (136-145)
[2021-10-03 18:30] LABS: Glucose 83 mg/dl (74-100)
[2021-10-03 18:47] LABS: Acetone, Serum (Rapid) Small (None Detect)
[2021-10-03 19:25] LABS: POC Glucose,Bedside 73 (70-110)
--- NOTE | 2021-10-03 19:49 | PC.NURSE ---
Received report from Parvez at 1900. FS was 73. Insulin gtt running at 1 unit/hr. Fluids continue infusing at current rates.
--- NOTE | 2021-10-03 20:00 | PC.NURSE ---
FS 83. Insulin increased to 3 units/hr per MD Jannette and 1L bolus of NS ordered.
[2021-10-03 20:11] LABS: POC Glucose,Bedside 83 (70-110)
--- NOTE | 2021-10-03 20:29 | PC.NURSE ---
Report called to ASHELY Castañeda at this time.
--- NOTE | 2021-10-03 20:48 | PC.NURSE ---
PT ARRIVED TO FLOOR VIA STRETCHER FROM ED W/STAFF @ 2047
[2021-10-03 21:56] LABS: Anion Gap 11.3 mEq/L (5-15); Blood Urea Nitrogen 10 mg/dl (7-17); Calcium 7.8 mg/dl (8.4-10.2); Carbon Dioxide 15 mmol/L (22.0-30.0); Chloride 117 mmol/L (98-107); Creatinine Clearance Estimated 141 mL/min (50-200); Estimated Glomerular Filt Rate 144 ml/min (>60); GFR (African American) 174 ML/MIN (>60); Glucose 69 mg/dl (74-100); Potassium 3.3 mmoL/L (3.5-5.1); Sodium 140 mmol/L (136-145)
[2021-10-04] VITALS (12 sets, daily range): BP systolic 102–128; BP diastolic 43–77; PULSE 50–84; RESP 14–21; TEMP 36.3–37.2; O2SAT 98–100; BMI 19.1
[2021-10-04 00:38] LABS: Anion Gap 9.7 mEq/L (5-15); Blood Urea Nitrogen 10 mg/dl (7-17); Calcium 7.4 mg/dl (8.4-10.2); Carbon Dioxide 15 mmol/L (22.0-30.0); Chloride 118 mmol/L (98-107); Creatinine Clearance Estimated 141 mL/min (50-200); Estimated Glomerular Filt Rate 144 ml/min (>60); GFR (African American) 174 ML/MIN (>60); Potassium 3.7 mmoL/L (3.5-5.1); Sodium 139 mmol/L (136-145)
[2021-10-04 00:39] LABS: Glucose 95 mg/dl (74-100)
[2021-10-04 00:40] LABS: Acetone, Serum (Rapid) Small (None Detect)
[2021-10-04 00:52] LABS: POC Glucose,Bedside 75 (70-110)
[2021-10-04 00:57] LABS: POC Glucose,Bedside 84 (70-110)
[2021-10-04 00:57] LABS: POC Glucose,Bedside 92 (70-110)
[2021-10-04 04:54] LABS: Chloride 117 mmol/L (98-107); Sodium 135 mmol/L (136-145)
[2021-10-04 04:57] LABS: Blood Urea Nitrogen 8 mg/dl (7-17); Carbon Dioxide 16 mmol/L (22.0-30.0); Creatinine Clearance Estimated 141 mL/min (50-200); Estimated Glomerular Filt Rate 144 ml/min (>60); GFR (African American) 174 ML/MIN (>60)
[2021-10-04 04:58] LABS: Calcium 6.8 mg/dl (8.4-10.2); Glucose 93 mg/dl (74-100)
[2021-10-04 05:00] LABS: Acetone, Serum (Rapid) Small (None Detect)
--- NOTE | 2021-10-04 05:15 | PC.NURSE ---
notified of potassium and Calcium levels.
[2021-10-04 10:01] LABS: Chloride 116 mmol/L (98-107); Potassium 3.2 mmoL/L (3.5-5.1); Sodium 137 mmol/L (136-145)
--- NOTE | 2021-10-04 10:03 | HMH.ACPN2 ---
Internal Medicine - PN: Subj *Date: 10/04/21 *Time: 10:03 Interval history: doing better with improved labs but still with positive serum acetone - nausea but hungry Exam Vital signs and Labs for Last 24 Hours: Temp Pulse Resp BP Pulse Ox 98.2 F 74 16 115/74 99 10/04/21 08:00 10/04/21 10:00 10/04/21 10:00 10/04/21 10:00 10/04/21 10:00 Laboratory Results - last 24 hr 10/03/21 11:53: POC Glucose 168 H 10/03/21 12:23: Acetone Level Small 10/03/21 12:23: Sodium 132 L, Potassium 3.9, Chloride 111 H, Carbon Dioxide 14 L, Anion Gap 10.9, BUN 12, Creatinine 0.60, Estimated Creat Clear 120, Estimated GFR 117, Est GFR ( Amer) 141, Glucose 139 H, Calcium 7.8 L 10/03/21 15:49: POC Glucose 81 10/03/21 16:45: POC Glucose 96 10/03/21 17:51: POC Glucose 81 10/03/21 18:01: Sodium 138, Potassium 3.3 L, Chloride 116 H, Carbon Dioxide 15 L, Anion Gap 10.3, BUN 11, Creatinine 0.50 L, Estimated Creat Clear 144, Estimated GFR 144, Est GFR ( Amer) 174 D, Glucose 83 D, Calcium 7.8 L, Acetone Level Small 10/03/21 19:17: POC Glucose 73 10/03/21 20:02: POC Glucose 83 10/03/21 21:37: Sodium 140, Potassium 3.3 L, Chloride 117 H, Carbon Dioxide 15 L, Anion Gap 11.3, BUN 10, Creatinine 0.50 L, Estimated Creat Clear 141, Estimated GFR 144, Est GFR ( Amer) 174, Glucose 69 L, Calcium 7.8 L 10/03/21 22:17: POC Glucose 75 10/03/21 23:02: POC Glucose 84 10/04/21 00:20: Sodium 139, Potassium 3.7, Chloride 118 H, Carbon Dioxide 15 L, Anion Gap 9.7, BUN 10, Creatinine 0.50 L, Estimated Creat Clear 141, Estimated GFR 144, Est GFR ( Amer) 174, Glucose 95 D, Calcium 7.4 L, Acetone Level Small 10/04/21 00:36: POC Glucose 92 10/04/21 04:40: Sodium 135 L, Potassium 3.0 L, Chloride 117 H, Carbon Dioxide 16 L, Anion Gap 5.0, BUN 8, Creatinine 0.50 L, Estimated Creat Clear 141, Estimated GFR 144, Est GFR ( Amer) 174, Glucose 93, Calcium 6.8 L 10/04/21 04:40: Acetone Level Small I & O for Last 24 hours: Intake & Output 10/01/21 10/02/21 10/03/21 10/04/21 11:59 11:59 11:59 11:59 Weight 122 lb 15.934 oz 126 lb 8 oz - Constitutional no acute distress - *Routine HEENT Exam Head: Present: normocephalic Eye: Present: EOMI, PERRL ENT: Present: mucous membranes dry - *Routine Neck Exam Absent: JVD - *Routine Respiratory Exam Present: CTA bilaterally - *Routine Cardiovascular Exam Present: RRR - *Routine Abdominal Exam Present: soft - *Routine Extremities Exam Absent: calf tenderness - *Routine Skin Exam Present: intact - *Routine Neurological Exam Present: alert, oriented X3, CN II-XII intact - Routine Psychiatric Exam Present: normal affect Assessment and Plan (1) DKA (diabetic ketoacidoses) Status: Acute Qualifiers: Diabetes mellitus type: type 1 Diabetes mellitus complication detail: without coma Qualified Code(s): E10.10 - Type 1 diabetes mellitus with ketoacidosis without coma Category: Medical Code(s): E13.10 - Other specified diabetes mellitus with ketoacidosis without coma (2) Pneumonia Status: Acute Qualifiers: Pneumonia type: due to unspecified organism Laterality: right Lung location: lower lobe of lung Qualified Code(s): J18.9 - Pneumonia, unspecified organism Category: Medical Code(s): J18.9 - Pneumonia, unspecified organism (3) COVID-19 Status: Acute Category: Medical Code(s): U07.1 - COVID-19 (4) Diabetes mellitus, insulin dependent (IDDM), controlled Status: Acute Category: Medical (5) Factor V Leiden Status: Chronic Category: Medical Code(s): D68.51 - Activated protein C resistance
[2021-10-04 10:04] LABS: Blood Urea Nitrogen 7 mg/dl (7-17); Creatinine Clearance Estimated 148 mL/min (50-200); Estimated Glomerular Filt Rate 144 ml/min (>60); GFR (African American) 174 ML/MIN (>60)
[2021-10-04 10:05] LABS: Anion Gap 8.2 mEq/L (5-15); Calcium 7.3 mg/dl (8.4-10.2); Carbon Dioxide 16 mmol/L (22.0-30.0); Glucose 59 mg/dl (74-100)
[2021-10-04 10:30] LABS: Acetone, Serum (Rapid) Small (None Detect)
--- NOTE | 2021-10-04 10:46 | PC.NURSE ---
notified Dr. Bhatia of small amount of acetone and calculated gap 5. Will continue insulin gtt, serial bmp q4 and serial acetone q12.
--- NOTE | 2021-10-04 11:28 | PC.NURSE ---
Clinic pharmacy ([facility]) delivered meds to bed as they are closed tomorrow and pt is to be discharged home tomorrow. All meds are in separate bags that are stapled. Suboxone given to ocean forwarder (Sunni), who locked it up, Insulin put in pt refrigerator in [facility] pharmacy (N[facility] Gonzalez and Leandro Macdonald) notified, and Dexcom is in pt's room on the counter by the sink. Pt is aware and is agreeable.
[2021-10-04 11:50] LABS: POC Glucose,Bedside 82 (70-110)
[2021-10-04 11:50] LABS: POC Glucose,Bedside 121 (70-110)
[2021-10-04 11:50] LABS: POC Glucose,Bedside 77 (70-110)
[2021-10-04 13:16] LABS: Chloride 113 mmol/L (98-107); Potassium 3.5 mmoL/L (3.5-5.1); Sodium 132 mmol/L (136-145)
[2021-10-04 13:19] LABS: Anion Gap 3.5 mEq/L (5-15); Blood Urea Nitrogen 5 mg/dl (7-17); Carbon Dioxide 19 mmol/L (22.0-30.0); Creatinine Clearance Estimated 123 mL/min (50-200); Estimated Glomerular Filt Rate 117 ml/min (>60); GFR (African American) 141 ML/MIN (>60)
[2021-10-04 13:20] LABS: Calcium 6.8 mg/dl (8.4-10.2); Glucose 208 mg/dl (74-100)
[2021-10-04 16:10] LABS: Acetone, Serum (Rapid) Small (None Detect)
[2021-10-04 18:27] LABS: Chloride 112 mmol/L (98-107)
[2021-10-04 18:28] LABS: Potassium 3.3 mmoL/L (3.5-5.1); Sodium 135 mmol/L (136-145)
[2021-10-04 18:31] LABS: Anion Gap 6.3 mEq/L (5-15); Blood Urea Nitrogen 5 mg/dl (7-17); Carbon Dioxide 20 mmol/L (22.0-30.0); Creatinine Clearance Estimated 123 mL/min (50-200); Estimated Glomerular Filt Rate 117 ml/min (>60); GFR (African American) 141 ML/MIN (>60); Glucose 100 mg/dl (74-100)
--- NOTE | 2021-10-04 20:27 | PC.NURSE ---
fsbs 128, decreased insulin drip to 2units/hr from 4units/hr
[2021-10-04 20:44] LABS: Chloride 112 mmol/L (98-107); Potassium 3.6 mmoL/L (3.5-5.1); Sodium 135 mmol/L (136-145)
[2021-10-04 20:46] LABS: POC Glucose,Bedside 160 (70-110)
[2021-10-04 20:46] LABS: POC Glucose,Bedside 234 (70-110)
[2021-10-04 20:46] LABS: POC Glucose,Bedside 200 (70-110)
[2021-10-04 20:46] LABS: POC Glucose,Bedside 121 (70-110)
[2021-10-04 20:47] LABS: Anion Gap 4.6 mEq/L (5-15); Blood Urea Nitrogen 5 mg/dl (7-17); Calcium 6.9 mg/dl (8.4-10.2); Carbon Dioxide 22 mmol/L (22.0-30.0); Creatinine Clearance Estimated 123 mL/min (50-200); Estimated Glomerular Filt Rate 117 ml/min (>60); GFR (African American) 141 ML/MIN (>60); Glucose 124 mg/dl (74-100)
[2021-10-04 21:14] LABS: Acetone, Serum (Rapid) None Detected (None Detect)
--- NOTE | 2021-10-04 22:15 | PC.NURSE ---
pt's fsbs 84, decreased insulin drip to 1unit/hr, MD Bhatia stated to day RN Maria Antonia to keep drip on at 1 due to acetone still increased
[2021-10-04 22:19] LABS: POC Glucose,Bedside 97 (70-110)
[2021-10-04 22:19] LABS: POC Glucose,Bedside 84 (70-110)
[2021-10-04 22:19] LABS: POC Glucose,Bedside 86 (70-110)
[2021-10-04 22:19] LABS: POC Glucose,Bedside 128 (70-110)
[2021-10-05] VITALS (7 sets, daily range): BP systolic 109–120; BP diastolic 68–78; PULSE 60–99; RESP 12–21; TEMP 36.8–37; O2SAT 96–99; BMI 19.0
[2021-10-05 01:16] LABS: POC Glucose,Bedside 111 (70-110)
[2021-10-05 04:20] LABS: POC Glucose,Bedside 182 (70-110)
--- NOTE | 2021-10-05 04:28 | PC.NURSE ---
fsbs 182, increased insulin drip to 2units/hr
[2021-10-05 05:47] LABS: POC Glucose,Bedside 166 (70-110)
[2021-10-05 05:53] LABS: Basophils % 0.6 % (0.1-2.0); Eosinophils % 0.6 % (0.1-12.0); Hemoglobin 12.4 g/dL (12.2-16.2); Lymphocytes % 40.6 % (10-50); Mean Corpuscular HGB Conc 34.3 g/dL (31.8-35.4); Mean Corpuscular Hemoglobin 28.5 pg (27.0-31.2); Mean Corpuscular Volume 83.2 fl (81-99); Mean Platelet Volume 8.6 fl (7.4-10.4); Monocytes # 0.4 K/mm3 (0.1-1.0); Monocytes % 4.7 % (1.7-9.3); Neutrophils % 53.6 % (37.0-80.0); Platelet Count 234 K/mm3 (142-424); Red Blood Count 4.33 M/mm3 (4.20-5.40); White Blood Count 7.4 K/mm3 (4.8-10.8)
[2021-10-05 06:10] LABS: Anion Gap 7.8 mEq/L (5-15); Blood Urea Nitrogen 4 mg/dl (7-17); Calcium 7.4 mg/dl (8.4-10.2); Carbon Dioxide 23 mmol/L (22.0-30.0); Chloride 113 mmol/L (98-107); Creatinine Clearance Estimated 147 mL/min (50-200); Estimated Glomerular Filt Rate 144 ml/min (>60); GFR (African American) 174 ML/MIN (>60); Potassium 3.8 mmoL/L (3.5-5.1); Sodium 140 mmol/L (136-145)
[2021-10-05 06:12] LABS: Glucose 167 mg/dl (74-100)
[2021-10-05 06:13] LABS: Acetone, Serum (Rapid) None Detected (None Detect)
--- NOTE | 2021-10-05 13:02 | HMH.DCSUM ---
General - General Admission date:: 10/03/21 Discharge date: 10/05/21 HPI HPI: 31 yr old female presents to ed with c/o vomiting,abd pain, hyperglycemia, and covid. pt states she went home and felt good for 2 days but then began to have abd pain,vomiting and glucose over 600. pt states she continued using her insulin pump but it yesterday. pt states she could not keep any food or liquids down. Pt admitted for DKA and covid pneumonia. Placed on insulin pump. Hospital Course Hospital Course: Patient was admitted with DKA, likely precipitated by Covid infection. He was placed on aggressive fluids, insulin drip and IV Levaquin. On the evening preceding her discharge her acetone was back to negative her gap had closed and her insulin drip had been reduced to 1. This morning the patient is hungry, taking p.o. well, and nursing staff is noting no significant issues. She would like to be discharged home and I am amenable to this idea Objective Vital signs: Temp Pulse Resp BP Pulse Ox 98.2 F 71 13 113/72 98 10/05/21 12:00 10/05/21 12:00 10/05/21 12:00 10/05/21 12:00 10/05/21 12:00 no acute distress - *Routine HEENT Exam Head: Present: normocephalic Eye: Present: EOMI, PERRL ENT: Present: mucous membranes moist - *Routine Neck Exam Present: supple - *Routine Respiratory Exam Present: CTA bilaterally - *Routine Cardiovascular Exam Present: RRR - *Routine Abdominal Exam Present: soft, normoactive bowel sounds. Absent: tenderness - *Routine Extremities Exam Absent: cyanosis, clubbing, edema - *Routine Skin Exam Present: warm. Absent: rash Results Labs on day of discharge: Labs from last 24 hours 10/05/21 10/05/21 10/05/21 05:40 05:38 05:38 WBC 7.4 D RBC 4.33 D Hgb 12.4 Hct 36.0 L MCV 83.2 MCH 28.5 MCHC 34.3 RDW 14.0 Plt Count 234 D MPV 8.6 Neut % (Auto) 53.6 Lymph % (Auto) 40.6 Garden % (Auto) 4.7 Eos % (Auto) 0.6 Baso % (Auto) 0.6 Neut # (Auto) 4.0 Lymph # (Auto) 3.0 Garden # (Auto) 0.4 Eos # (Auto) 0.0 Baso # (Auto) 0.0 Sodium 140 Potassium 3.8 Chloride 113 H Carbon Dioxide 23 Anion Gap 7.8 BUN 4 L Creatinine 0.50 L Estimated Creat Clear 147 Estimated GFR 144 Est GFR ( Amer) 174 D Glucose 167 H D POC Glucose 166 H Calcium 7.4 L Acetone Level None detected 10/05/21 10/05/21 10/04/21 04:11 00:23 22:11 WBC RBC Hgb Hct MCV MCH MCHC RDW Plt Count MPV Neut % (Auto) Lymph % (Auto) [place] % (Auto) Eos % (Auto) Baso % (Auto) Neut # (Auto) Lymph # (Auto) [place] # (Auto) Eos # (Auto) Baso # (Auto) Sodium Potassium Chloride Carbon Dioxide Anion Gap BUN Creatinine Estimated Creat Clear Estimated GFR Est GFR ( Amer) Glucose POC Glucose 182 H 111 H 84 Calcium Acetone Level 10/04/21 10/04/21 10/04/21 20:30 20:30 20:25 WBC RBC Hgb Hct MCV MCH MCHC RDW Plt Count MPV Neut % (Auto) Lymph % (Auto) [place] % (Auto) Eos % (Auto) Baso % (Auto) Neut # (Auto) Lymph # (Auto) [place] # (Auto) Eos # (Auto) Baso # (Auto) Sodium 135 L Potassium 3.6 Chloride 112 H Carbon Dioxide 22 Anion Gap 4.6 L BUN 5 L Creatinine 0.60 Estimated Creat Clear 123 Estimated GFR 117 Est GFR ( Amer) 141 Glucose 124 H D POC Glucose 128 H Calcium 6.9 L Acetone Level None detected 10/04/21 10/04/21 10/04/21 18:11 17:50 16:06 WBC RBC Hgb Hct MCV MCH MCHC RDW Plt Count MPV Neut % (Auto) Lymph % (Auto) [place] % (Auto) Eos % (Auto) Baso % (Auto) Neut # (Auto) Lymph # (Auto) [place] # (Auto) Eos # (Auto) Baso # (Auto) Sodium 135 L Potassium 3.3 L Chlori
--- NOTE | 2021-10-05 15:25 | PC.NURSE ---
RN gave pt all meds from clinic pharmacy (suboxone and insulin). Bags are still stapled. She also has Dexcom from clinic pharmacy. Pt discharged home at this time.
[2021-10-05 22:51] LABS: POC Glucose,Bedside 95 (70-110)
[2021-10-05 22:51] LABS: POC Glucose,Bedside 74 (70-110)
[2021-10-05 22:51] LABS: POC Glucose,Bedside 95 (70-110)
[2021-10-06 21:56] LABS: POC Glucose,Bedside 71 (70-110)
== END 2021-10-05 15:25 | disposition home or self-care (01) | DRG 637 ==
LOC: ER 19:16 → 2ND 10-03 06:14
PROVIDERS: Nurse Practitioner Family; Admitting Provider Internal Medicine Adolescent Medicine; Emergency Provider Emergency Medicine; PCP Nurse Practitioner Family; Visit Provider Emergency Medicine
DX: E10.10 Type 1 diabetes mellitus with ketoacidosis without coma (principal); U07.1 COVID-19; J18.9 Pneumonia, unspecified organism; D68.51 Activated protein C resistance; Z79.4 Long term (current) use of insulin; Z96.41 Presence of insulin pump (external) (internal); Z86.718 Personal history of other venous thrombosis and embolism; Z86.711 Personal history of pulmonary embolism; F31.9 Bipolar disorder, unspecified; F17.220 Nicotine dependence, chewing tobacco, uncomplicated
CPT/HCPCS: 36415; 71045; 74177; 80048; 80053; 81001; 82009; 82803; 82947; 82962; 83605; 83735; 84100; 85007; 85025; 87040; 96365; 96366; 96367; 96375; 96376; 99284; C9803; J1956; J2405; Q9967; U0003; U0005

== ENCOUNTER 2021-10-16 11:31 | Inpatient (IN) | payer OTHER, SELFPAY ==
[2021-10-16] VITALS (25 sets, daily range): BP systolic 93–135; BP diastolic 52–90; PULSE 88–120; RESP 16–24; TEMP 31.1–37.7; O2SAT 96–100; BMI 17.2; BMI 18.8
[2021-10-16 12:11] LABS: ABG HCO3 1.6 mmhg (22.0-26.0); ABG PCO2 12.8 mmhg (35.0-45.0); ABG TCO2 1.9 mmhg (23-27)
[2021-10-16 12:12] LABS: ABG Base Excess -34.6 mmol/L (-2.4-2.3); ABG Oxygen Saturation 99 % (90-100); Allen's Test ACCEPTABLE; Oxygen ROOM AIR %; Source L RADIAL
[2021-10-16 12:32] LABS: Chloride 92 mmol/L (98-107); Sodium 122 mmol/L (136-145)
--- NOTE | 2021-10-16 12:33 | PC.NURSE ---
ER MD at placing central line pt is rectal temp was 88.2- ER MD aware, placed greg hugger and additional warm blankets on pt will continue to monitor ER MD also made aware of pt critical glucose.
[2021-10-16 12:35] LABS: Alanine Aminotransferase 63 U/L (12-78); Alkaline Phosphatase 132 U/L (38-126); Aspartate Amino Transferase 273 U/L (14-36); Bilirubin,Total 0.8 mg/dl (0.2-1.3); Blood Urea Nitrogen 29 mg/dl (7-17); Estimated Glomerular Filt Rate 33 ml/min (>60); GFR (African American) 40 ML/MIN (>60)
[2021-10-16 12:36] LABS: Albumin Level 4.2 g/dl (3.5-5.0); Albumin/Globulin Ratio 1.8 (1.1-1.8); Calcium 8.2 mg/dl (8.4-10.2); Globulin 2.4 g/dL (1.3-3.2); Total Protein,Serum 6.6 g/dl (6.3-8.2)
[2021-10-16 12:41] LABS: Basophils # 0.2 K/mm3 (0-0.2); Basophils % 0.6 % (0.1-2.0); Eosinophils # 0.1 K/mm3 (0.0-0.4); Eosinophils % 0.2 % (0.1-12.0); Hematocrit 52.9 % (37.0-47.0); Hemoglobin 16.9 g/dL (12.2-16.2); Lymphocytes # 2.5 K/mm3 (0.7-4.5); Lymphocytes % 6.9 % (10-50); Mean Corpuscular Hemoglobin 29.4 pg (27.0-31.2); Monocytes # 1.5 K/mm3 (0.1-1.0); Monocytes % 4.3 % (1.7-9.3); Neutrophils # 31.3 K/mm3 (1.8-7.8); Platelet Count 399 K/mm3 (142-424); Red Blood Count 5.75 M/mm3 (4.20-5.40); Red Cell Distribution Width 13.9 % (11.5-17.5); White Blood Count 35.6 K/mm3 (4.8-10.8)
[2021-10-16 12:44] LABS: MANUAL DIFFERENTIAL MANUAL DIFFERENTIAL (MANUAL DIFF)
[2021-10-16 12:49] LABS: Glucose 663 mg/dl (74-100)
[2021-10-16 12:50] LABS: Carbon Dioxide < 5 mmol/L (22.0-30.0)
--- NOTE | 2021-10-16 12:51 | HMH.EDGENADL ---
ED Disposition Clinical Impression: Diabetic ketoacidosis Qualifiers: Diabetes mellitus type: type 1 Diabetes mellitus complication detail: with coma Qualified Code(s): E10.11 - Type 1 diabetes mellitus with ketoacidosis with coma Hypothermia Qualifiers: Encounter type: initial encounter Qualified Code(s): T68.XXXA - Hypothermia, initial encounter Disposition: Admitted As Inpatient Condition on Discharge: Critical - Critical Care Critical Care Time: Yes Attestation: On 10/16/21, the high probability of a clinically significant, sudden or life threatening deterioration of the following system(s) required my full and direct attention, intervention and personal management. The time I documented below is in addition to time spent performing reported procedures but includes the following listed in this critical care notation. Total Critical Care Time: 40 Vital system(s) involved:: Metabolic Failure My critical care processes included: Assessment & monitoring of V/S, Initial and Re-exams, Data Review/Interpretation, Coordinating Care, Medication Orders and management, Documentation Medical Decision Making - Jasbir Inquiry Pt receiving controlled substance: No Vital Signs: 10/16/21 11:32 10/16/21 12:20 10/16/21 12:30 Temperature 88.2 F L 88 F L Temperature Source Rectal Rectal Pulse Rate 89 88 Pulse Rate [Apical] 95 H Respiratory Rate 22 20 24 Blood Pressure 114/73 121/79 Blood Pressure [Right Arm] 120/78 Blood Pressure Mean 84 Blood Pressure Mean [Right Arm] 92 Blood Pressure Source [Right Arm] Automatic Cuff Blood Pressure Position [Right Arm] Supine 02 Sat by Pulse Oximetry 98 98 100 Oxygen Delivery Method Room Air Room Air 10/16/21 13:00 10/16/21 13:22 10/16/21 13:45 Temperature 88.5 F L 88.9 F L 89.2 F L Temperature Source Core Core Pulse Rate 89 88 88 Pulse Rate [Apical] Respiratory Rate 24 24 24 Blood Pressure 105/64 L 119/73 121/69 Blood Pressure [Right Arm] Blood Pressure Mean 77 88 76 Blood Pressure Mean [Right Arm] Blood Pressure Source [Right Arm] Blood Pressure Position [Right Arm] 02 Sat by Pulse Oximetry 99 100 100 Oxygen Delivery Method 10/16/21 14:00 10/16/21 14:15 10/16/21 14:30 Temperature 89.6 F L 90.0 F L 90.5 F L Temperature Source Core Pulse Rate 90 92 H 92 H Pulse Rate [Apical] Respiratory Rate 24 20 18 Blood Pressure 126/78 123/75 129/78 Blood Pressure [Right Arm] Blood Pressure Mean 87 93 Blood Pressure Mean [Right Arm] Blood Pressure Source [Right Arm] Blood Pressure Position [Right Arm] 02 Sat by Pulse Oximetry 100 100 97 Oxygen Delivery Method Room Air 10/16/21 14:45 10/16/21 15:00 10/16/21 15:15 Temperature 91.0 F L 91.4 F L 91.8 F L Temperature Source Core Core Core Pulse Rate 91 H 104 H 96 H Pulse Rate [Apical] Respiratory Rate 18 18 18 Blood Pressure 114/78 127/86 121/83 Blood Pressure [Right Arm] Blood Pressure Mean 85 97 91 Blood Pressure Mean [Right Arm] Blood Pressure Source [Right Arm] Blood Pressure Position [Right Arm] 02 Sat by Pulse Oximetry 96 98 100 Oxygen Delivery Method Room Air Room Air Room Air 10/16/21 15:30 10/16/21 15:45 10/16/21 16:00 Temperature 92.1 F L 92.3 F L 92.7 F L Temperature Source Pulse Rate 99 H 99 H 100 H Pulse Rate [Apical] Respiratory Rate 19 17 16 Blood Pressure 122/74 119/73 114/68 Blood Pressure [Right Arm] Blood Pressure Mean Blood Pressure Mean [Right Arm] Blood Pressure Source [Right Arm] Blood Pressure Position [Right Arm] 02 Sat by Pulse Oximetry 98 98 98 Oxygen Delivery Method 10/16/21 16:15 10/16/21 16:30 10/16/21 16:45 Temperature 93.0 F L 93.2 F L 93.7 F L Temperature Source Core Pulse Rate 105 H 107 H 110 H Pulse Rate [Apical] Respiratory Rate 16 16 20 Blood Pressure 135/71 105/71 L 122/65 Blood Pressure [Right Arm] Blood Pressure Mean 86 Blood Pressure Mean [Right Arm] Blood Pressure
--- NOTE | 2021-10-16 12:54 | XR_ITS ---
FINAL REPORT CLINICAL HISTORY: cvc placement COMPARISON: 10/02/2021 FINDINGS: SINGLE VIEW CHEST The heart is normal in size. The mediastinum is unremarkable. Central venous catheter tip terminates in the SVC. The lungs are clear. There is no pneumothorax. IMPRESSION: Central venous catheter tip terminates in the SVC. Reviewed, Interpreted and Dictated by Roman Kim MD Transcribed by Leonela Hdez Authenticated by Roman Kim MD on 10/16/2021 01:57:08 PM [facility]
--- NOTE | 2021-10-16 13:02 | CT_ITS ---
FINAL REPORT TECHNIQUE: Axial CT images were performed through the head. Coronal reformatted images were submitted. This study was performed with techniques to keep radiation doses as low as reasonably achievable (ALARA). Individualized dose reduction techniques using automated exposure control or adjustment of mA and/or kV according to the patient's size were employed. CLINICAL HISTORY: AMS FINDINGS: The head is asymmetrically positioned in the gantry. The ventricles are normal in size. There is no evidence of hemorrhage. There is no mass or edema identified. There is no abnormal extra-axial fluid seen. The sinuses are well aerated. IMPRESSION: No acute intracranial process. Reviewed, Interpreted and Dictated by Roman Kim MD Transcribed by Leonela Hdez Authenticated by Roman Kim MD on 10/16/2021 01:57:[address] [facility]
--- NOTE | 2021-10-16 13:03 | PC.NURSE ---
contacted pharmacy for insulin drip
--- NOTE | 2021-10-16 13:09 | PC.NURSE ---
patient to radiology
--- NOTE | 2021-10-16 13:12 | PC.NURSE ---
pt to Ct at this time, warm blanket on pt
[2021-10-16 13:14] LABS: Coronavirus 19, PCR Not Detected (NotDetected); Influenza A, PCR Not Detected (NotDetected); Influenza B, PCR Not Detected (NotDetected)
[2021-10-16 13:14] LABS: Acetone, Serum (Rapid) Large (None Detect); Lymphocytes % 9 % (10-50); Monocytes % 2 % (2-9); Neutrophils % 89 % (42-76); Platelet Estimate Normal; RBC Morphology Normal; Total Cells Counted 100
[2021-10-16 13:15] LABS: Acetaminophen < 10 ug/ml (10-30); Magnesium 2.5 mg/dl (1.6-2.3); Salicylate 1.1 mg/dL (2.0-20.0)
[2021-10-16 13:20] LABS: Microscopic,Cath URINE MICROSCOPIC (MICROSCOPIC)
--- NOTE | 2021-10-16 13:21 | PC.NURSE ---
Patient back from radiology
[2021-10-16 13:25] LABS: Lactic Acid 1.6 mmol/L (0.7-2.1)
[2021-10-16 13:25] LABS: Appearance,Urine/Cath CLEAR (Clear); Blood, Urine/Cath TRACE-I (Negative); Color,Urine/Cath YELLOW (Yellow); Glucose,Urine/Cath (UA) 3+ (Negative); Ketones,Urine/Cath 3+ (Negative); Leukocyte Esterase,Cath Negative (Negative); Nitrate,Cath Negative (Negative); Protein,Urine/Cath 1+ (Negative); Specific Gravity, Urine/Cath >= 1.030 (1.005-1.030); Urobilinogen,Cath 0.2 EU/dl (0.2)
--- NOTE | 2021-10-16 13:28 | ECG_ITS ---
APPROVED REPORT Exam: Resting ECG HR:87 bpm ECG Measurements Heart Rate 87 AXES DC 152 P 83 QRSd 83 QRS 60 QT 412 T 4 QTc 456 Conclusion SINUS RHYTHM EARLY REPOLARIZATION [ST ELEVATION WITH NORMALLY INFLECTED T-WAVE] BORDERLINE ECG UNCONFIRMED REPORT Electronically signed by : Joe Lopes MD 10/17/2021 19:22:10
[2021-10-16 13:32] LABS: Ethyl Alcohol < 10 mg/dl (0-10)
[2021-10-16 13:38] LABS: Amphetamine/Metha Screen,Urine Negative ng/ml (<1000); Barbiturates Screen,Urine Negative ng/ml (<200)
[2021-10-16 13:39] LABS: Benzodiazepines Screen,Urine Negative ng/ml (<200)
[2021-10-16 13:40] LABS: Cannabinoid Screen,Urine Positive ng/ml (<50); Cocaine Screen,Urine Negative ng/ml (<300)
[2021-10-16 13:41] LABS: Methadone Screen,Urine Negative ng/ml (<300); Opiate Screen,Urine Negative ng/ml (<300)
[2021-10-16 13:42] LABS: Phencyclidine Screen,Urine Negative ng/ml (<25)
[2021-10-16 13:44] LABS: Bilirubin,Cath Negative (Negative)
[2021-10-16 13:47] LABS: Bacteria,Urine/Cath TRACE /lpf; RBC,Urine/Cath Occasional # /hpf (0-3); Squamous Epithelial Ur./Cath Occasional #/hpf (0-5)
--- NOTE | 2021-10-16 14:16 | PC.NURSE ---
patient back from radiology; in restroom
[2021-10-16 14:26] LABS: POC Glucose,Bedside 577 (70-110)
--- NOTE | 2021-10-16 14:42 | PC.NURSE ---
pt more alert at this time, will open her eyes when you talk to her, replies with okay
--- NOTE | 2021-10-16 15:06 | PC.NURSE ---
message left for dr thompson
--- NOTE | 2021-10-16 15:15 | PC.NURSE ---
CARE MANAGEMENT CALLED FOR ADMISSION
--- NOTE | 2021-10-16 16:37 | PC.NURSE ---
attempted to call report on pt, receiving nurse states she will call back
[2021-10-16 16:39] LABS: POC Glucose,Bedside 516 (70-110)
--- NOTE | 2021-10-16 16:48 | PC.NURSE ---
report called to prasanna regalado
--- NOTE | 2021-10-16 17:41 | HMH.HP ---
*Admission Date: 10/16/21 *Chief complaint: dka *History of present illness: Patient is a 31-year-old white female, followed at our clinic, admitted through the emergency room in [facility]. Patient has insulin requiring diabetes, has frequent issues with compliance, and was admitted earlier in the month with DKA. In the emergency room her mentation was altered, she was hypothermic. Her work-up included a CT of the brain which showed no acute change and a urine drug screen which showed presence of THC otherwise negative. Lab work also showed large amounts of acetone, weighted white count 35.6 a marked degree of acidosis and ABG pH of 6.70. She has low bicarb, and a gap of 30. Patient just arrived on the floor from the ER. Still very drowsy. An insulin drip is on board. [facility] History Medical History: Reports:: Anxiety, Deep Vein Thrombosis, Depression, Diabetes Mellitus Type 1, Pulmonary Embolism, Seizures Denies:: Cancer, Diabetes Mellitus Type 2, Internal Pacemaker, MRSA *Have you ever received a pneumonia vaccine?: No *Have you received a flu vaccine this season?: No Other Medical History: Denies: Blood Transfusion Reaction Other Surgeries: Yes: Appendectomy, Cholecystectomy, , Hysterectomy-Total, Hysterectomy-Partial, Other. No: Pacemaker Amputation: No Fractures: No - *Social History Smoking Status: Current every day smoker Tobacco Type: cigarettes # Packs/Day (cigarettes): 1 Alcohol Intake: current Alcohol Intake Frequency:: holidays/special occasions only Substance Use Type: crack/cocaine *Occupational Status:: unemployed Housing: house Household Members: spouse *Travel in the last 8 weeks: None - Psychiatric History Pschychiatric History:: Reports:: Anxiety, Depression Family Hx:: Diabetes Review of Systems - Review of Systems Review of systems:: unable to obtain Meds Home Medications Medication Instructions Recorded Confirmed Type albuterol sulfate 90 mcg/actuation 1 puff INHALATION Q6H #6.7 g 09/03/20 10/10/21 Rx aerosol inhaler Insulin Pump Cartridge [Omnipod See Rx Instructions SQ .MEDSUPPLY 09/23/21 10/10/21 History Dash] Ubrogepant [Ubrelvy] 100 mg PO NEEDED PRN 09/23/21 10/10/21 History Cholecalciferol (Vitamin D3) 50,000 unit PO WEEKLY 09/24/21 10/10/21 History [Vitamin D3 50,000 unit Cap] Melatonin 5 mg PO HS 09/24/21 10/10/21 History insulin lispro 100 unit/mL 1 sliding scale dose SQ 09/26/21 10/10/21 Rx subcutaneous solution DIRECTED #10 ml Buprenorphine HCl/Naloxone HCl 2 tab SL DAILY 10/04/21 10/10/21 History [Suboxone 8mg/2mg ODT] Insulin Pump Cartridge [Omnipod See Rx Instructions .ROUTE 10/04/21 10/10/21 History Dash] DIRECTED levoFLOXacin [Levaquin 500mg 500 mg PO DAILY #7 tab 10/05/21 10/10/21 Rx tab] albuterol sulfate 0.63 mg/3 mL 0.63 mg INHALATION Q6H #75 ml 10/10/21 Rx solution for nebulization citalopram 20 mg tablet 20 mg PO DAILY tab 10/10/21 10/10/21 History fluconazole 150 mg tablet 150 mg PO DAILY 3 Days #3 tab 10/10/21 10/10/21 Rx insulin regular human 100 unit/mL 1 sliding scale dose SQ 10/10/21 10/10/21 Rx injection solution USEASDIRECTD #10 ml nebulizers See Rx Instructions .ROUTE #1 each 10/10/21 10/10/21 Rx trazodone 50 mg tablet 50 mg PO HS tab 10/10/21 10/10/21 History Allergies Allergy/AdvReac Type Severity Reaction Status Date / Time tramadol [TRAMADOL] Allergy Severe Swelling Verified 10/10/21 11:06 of Lip/Tongue/Throat butalbital [BUTALBITAL] Allergy Unknown Verified 10/10/21 11:06 codeine [CODEINE] Allergy Unknown Verified 10/10/21 11:06 iodine [IODINE] Allergy Unknown Verified 10/10/21 11:06 ketorolac [KETOROLAC] Allergy Unknown Verified 10/10/21 11:06 Penicillins [PENICILLINS] Allergy Unknown Verified 10/10/21 11:06 povidone-iodine Allergy Unknown Verified 10/10/21 11:06 [From BETADINE] ADHESIVES Allergy Mild blisters Uncoded 10/10/21 11:06 Exam Vital signs and Labs for Last 24 Hours:
[2021-10-16 17:45] LABS: Blood Urea Nitrogen 33 mg/dl (7-17); Calcium 7.8 mg/dl (8.4-10.2); Chloride 105 mmol/L (98-107); Creatinine Clearance Estimated 46 mL/min (50-200); Estimated Glomerular Filt Rate 44 ml/min (>60); GFR (African American) 53 ML/MIN (>60); Potassium 4.6 mmoL/L (3.5-5.1); Sodium 132 mmol/L (136-145)
[2021-10-16 18:19] LABS: Anion Gap 26.6 mEq/L (5-15)
[2021-10-16 18:20] LABS: Carbon Dioxide < 5 mmol/L (22.0-30.0); Glucose 474 mg/dl (74-100)
--- NOTE | 2021-10-16 19:42 | PC.NURSE ---
notified Dr Waters of critical 1839. CO2 < 5 glucose 474. new orders received at 191 1 amp bicarb and 500ml ns bolus. evening or night nurse supervisor rn notified of new orders.
--- NOTE | 2021-10-16 20:23 | PC.NURSE ---
[facility] [phone] @ [phone]
--- NOTE | 2021-10-16 21:03 | P.CONPHA_ITS ---
[facility] Pharmacy VTE Monitoring - Patient Demographics Admission date: 10/16/21 Report Date: 10/16/21 Time: 21:03 Allergies/Adverse Reactions: Patient Allergies tramadol [TRAMADOL] Allergy (Severe, Verified 10/10/21 11:06) Swelling of Lip/Tongue/Throat butalbital [BUTALBITAL] Allergy (Unknown, Verified 10/10/21 11:06) codeine [CODEINE] Allergy (Unknown, Verified 10/10/21 11:06) iodine [IODINE] Allergy (Unknown, Verified 10/10/21 11:06) ketorolac [KETOROLAC] Allergy (Unknown, Verified 10/10/21 11:06) Penicillins [PENICILLINS] Allergy (Unknown, Verified 10/10/21 11:06) povidone-iodine [From BETADINE] Allergy (Unknown, Verified 10/10/21 11:06) ADHESIVES Allergy (Mild, Uncoded 10/10/21 11:06) blisters Height: 1.7 m Weight: 54.658 kg Patient Problems: Current Active Problems DKA (diabetic ketoacidoses) (Acute) Diabetes mellitus (Acute) Hypothermia (Acute) - VTE Risk Labs: VTE Related Lab Results Hgb 16.9 g/dL (12.2-16.2) H 10/16/21 11:59 Hct 52.9 % (37.0-47.0) H 10/16/21 11:59 Plt Count 399 K/mm3 (142-424) 10/16/21 11:59 BUN 33 mg/dl (7-17) H 10/16/21 17:16 Creatinine 1.40 mg/dl (0.52-1.04) H D 10/16/21 17:16 Estimated Creat Clear 46 mL/min (50-200) 10/16/21 17:16 Clinical Trial Participant: No - Prophylaxis VTE Prophylaxis Ordered?: Yes Types of VTE Prophylaxis: TEDS Knee High Location of Applied Device: Not Applicable
[2021-10-16 22:06] LABS: Blood Urea Nitrogen 37 mg/dl (7-17); Calcium 7.6 mg/dl (8.4-10.2); Chloride 110 mmol/L (98-107); Creatinine Clearance Estimated 59 mL/min (50-200); Estimated Glomerular Filt Rate 52 ml/min (>60); GFR (African American) 63 ML/MIN (>60); Glucose 261 mg/dl (74-100); Potassium 3.9 mmoL/L (3.5-5.1); Sodium 135 mmol/L (136-145)
[2021-10-16 22:10] LABS: Anion Gap 23.9 mEq/L (5-15)
[2021-10-16 22:11] LABS: Carbon Dioxide < 5 mmol/L (22.0-30.0)
[2021-10-16 22:18] LABS: POC Glucose,Bedside 273 (70-110)
[2021-10-16 22:18] LABS: POC Glucose,Bedside 389 (70-110)
[2021-10-16 22:18] LABS: POC Glucose,Bedside 452 (70-110)
[2021-10-16 22:18] LABS: POC Glucose,Bedside 253 (70-110)
--- NOTE | 2021-10-16 23:26 | PC.NURSE ---
Pt off hypothermic blanket. Pt mental status improving. fingersticks improving. Last one obtained was 245 @ 2317. VS improving. Pt continues to be tachycardic, but is improving. Current HR 113. notified of labs. New orders received and carried out. Will continue to monitor.
[2021-10-17] VITALS (10 sets, daily range): BP systolic 110–142; BP diastolic 44–86; PULSE 90–116; RESP 15–18; TEMP 36.9–37.7; O2SAT 98–100; BMI 18.6
[2021-10-17 01:10] LABS: Acetone, Serum (Rapid) Moderate (None Detect)
[2021-10-17 01:15] LABS: Anion Gap 19.2 mEq/L (5-15); Blood Urea Nitrogen 37 mg/dl (7-17); Calcium 7.8 mg/dl (8.4-10.2); Chloride 114 mmol/L (98-107); Creatinine Clearance Estimated 64 mL/min (50-200); Estimated Glomerular Filt Rate 58 ml/min (>60); GFR (African American) 70 ML/MIN (>60); Glucose 161 mg/dl (74-100); Potassium 4.2 mmoL/L (3.5-5.1); Sodium 137 mmol/L (136-145)
[2021-10-17 01:26] LABS: Carbon Dioxide 8 mmol/L (22.0-30.0)
[2021-10-17 02:38] LABS: POC Glucose,Bedside 245 (70-110)
[2021-10-17 02:38] LABS: POC Glucose,Bedside 213 (70-110)
[2021-10-17 02:38] LABS: POC Glucose,Bedside 174 (70-110)
[2021-10-17 02:38] LABS: POC Glucose,Bedside 123 (70-110)
[2021-10-17 06:42] LABS: Chloride 112 mmol/L (98-107); Potassium 3.8 mmoL/L (3.5-5.1); Sodium 137 mmol/L (136-145)
[2021-10-17 06:44] LABS: Blood Urea Nitrogen 37 mg/dl (7-17); Creatinine Clearance Estimated 59 mL/min (50-200); Estimated Glomerular Filt Rate 52 ml/min (>60); GFR (African American) 63 ML/MIN (>60)
[2021-10-17 06:45] LABS: Anion Gap 17.8 mEq/L (5-15); Calcium 7.4 mg/dl (8.4-10.2); Carbon Dioxide 11 mmol/L (22.0-30.0); Glucose 171 mg/dl (74-100)
--- NOTE | 2021-10-17 07:59 | HMH.PHAINT ---
Home med rec complete
[2021-10-17 08:22] LABS: Acetone, Serum (Rapid) Moderate (None Detect)
[2021-10-17 08:35] LABS: Basophils % 0.1 % (0.1-2.0); Eosinophils % 0.1 % (0.1-12.0); Hematocrit 36.7 % (37.0-47.0); Lymphocytes # 0.5 K/mm3 (0.7-4.5); Lymphocytes % 2.7 % (10-50); Mean Corpuscular HGB Conc 35.6 g/dL (31.8-35.4); Mean Corpuscular Hemoglobin 28.7 pg (27.0-31.2); Mean Corpuscular Volume 80.6 fl (81-99); Mean Platelet Volume 8.6 fl (7.4-10.4); Monocytes # 0.9 K/mm3 (0.1-1.0); Monocytes % 4.3 % (1.7-9.3); Neutrophils # 18.4 K/mm3 (1.8-7.8); Neutrophils % 92.8 % (37.0-80.0); Platelet Count 222 K/mm3 (142-424); Red Blood Count 4.56 M/mm3 (4.20-5.40); Red Cell Distribution Width 14.7 % (11.5-17.5)
[2021-10-17 08:38] LABS: MANUAL DIFFERENTIAL MANUAL DIFFERENTIAL (MANUAL DIFF)
[2021-10-17 09:16] LABS: Lymphocytes % 2 % (10-50); Monocytes % 2 % (2-9); Neutrophils % 96 % (42-76); Total Cells Counted 100
[2021-10-17 09:17] LABS: Platelet Estimate Normal
--- NOTE | 2021-10-17 09:20 | HMH.ACPN2 ---
Internal Medicine - PN: Subj *Date: 10/17/21 *Time: 17:35 Interval history: 31-year-old female patient resting quietly in bed she is very lethargic and will moan with tactile stimulation. Insulin drip infusing Exam Vital signs and Labs for Last 24 Hours: Temp Pulse Resp BP Pulse Ox 99.2 F 116 H 15 133/76 98 10/17/21 08:00 10/17/21 08:00 10/17/21 08:00 10/17/21 08:00 10/17/21 08:00 Laboratory Results - last 24 hr 10/16/21 11:59: WBC 35.6 H*, RBC 5.75 H, Hgb 16.9 H, Hct 52.9 H, MCV 92.0, MCH 29.4, MCHC 32.0, RDW 13.9, Plt Count 399, MPV 10.0, Neut % (Auto) 88.0 H, Lymph % (Auto) 6.9 L, [place] % (Auto) 4.3, Eos % (Auto) 0.2, Baso % (Auto) 0.6, Neut # (Auto) 31.3 H, Lymph # (Auto) 2.5, [place] # (Auto) 1.5 H, Eos # (Auto) 0.1, Baso # (Auto) 0.2, Total Counted 100, Neutrophils % (Manual) 89 H, Lymphocytes % (Manual) 9 L, Monocytes % (Manual) 2, Platelet Estimate Normal, RBC Morphology Normal 10/16/21 11:59: Sodium 122 L, Potassium 5.0, Chloride 92 L, Carbon Dioxide < 5 L*, Anion Gap 30.0 H, BUN 29 H, Creatinine 1.80 H, Estimated GFR 33 L, Est GFR ( Amer) 40 L, Glucose 663 H*, Calcium 8.2 L, Total Bilirubin 0.8, AST 273 H, ALT 63, Alkaline Phosphatase 132 H, Total Protein 6.6 D, Albumin 4.2, Globulin 2.4, Albumin/Globulin Ratio 1.8 10/16/21 11:59: Phosphorus 7.0 H, Magnesium 2.5 H, Salicylates 1.1 L, Acetaminophen < 10 L, Acetone Level Large 10/16/21 12:09: Specimen Source L radial, O2 % Room air, ABG pH 6.70 L*, ABG pCO2 12.8 L, ABG pO2 180.0 H, ABG HCO3 1.6 L, ABG Total CO2 1.9 L, ABG O2 Saturation 99, ABG Base Excess -34.6 L, Oscar Test Acceptable 10/16/21 12:23: Urine Opiates Screen Negative, Urine Methadone Screen Negative, Ur Barbituates Screen Negative, Ur Phencyclidine Scrn Negative, Ur Amphetamines Screen Negative, U Benzodiazepines Scrn Negative, Urine Cocaine Screen Negative, U Marijuana (THC) Screen Positive H 10/16/21 12:55: Urine Color Yellow, Urine Appearance Clear, Urine pH 6.0, Ur Specific Flushing >= 1.030, Urine Protein 1+, Urine Glucose (UA) 3+, Urine Ketones 3+, Urine Blood Trace-i, Urine Nitrate Negative, Urine Bilirubin Negative, Urine Urobilinogen 0.2, Ur Leukocyte Esterase Negative, Urine RBC Occasional, Urine WBC None, Ur Squamous Epith Cells Occasional, Urine Bacteria Trace 10/16/21 12:55: SARS-CoV-2 (PCR) Not detected, Influenza A Untype (PCR) Not detected, Influenza Type B (PCR) Not detected 10/16/21 13:00: Lactate 1.6 10/16/21 13:00: Plasma/Serum Alcohol < 10 10/16/21 14:19: POC Glucose 577 H* 10/16/21 16:32: POC Glucose 516 H* 10/16/21 17:16: Sodium 132 L, Potassium 4.6, Chloride 105, Carbon Dioxide < 5 L*, Anion Gap 26.6 H, BUN 33 H, Creatinine 1.40 H D, Estimated Creat Clear 46, Estimated GFR 44 L, Est GFR ( Amer) 53 L D, Glucose 474 H* D, Calcium 7.8 L 10/16/21 18:23: POC Glucose 452 H* 10/16/21 20:05: POC Glucose 389 H* 10/16/21 21:24: Sodium 135 L, Potassium 3.9, Chloride 110 H, Carbon Dioxide < 5 L*, Anion Gap 23.9 H, BUN 37 H, Creatinine 1.20 H, Estimated Creat Clear 59, Estimated GFR 52 L, Est GFR ( Amer) 63, Glucose 261 H D, Calcium 7.6 L 10/16/21 21:26: POC Glucose 273 H 10/16/21 22:05: POC Glucose 253 H 10/16/21 23:17: POC Glucose 245 H 10/17/21 00:20: Sodium 137, Potassium 4.2, Chloride 114 H, Carbon Dioxide 8 L* D, Anion Gap 19.2 H, BUN 37 H, Creatinine 1.10 H, Estimated Creat Clear 64, Estimated GFR 58 L, Est GFR ( Amer) 70, Glucose 161 H D, Calcium 7.8 L 10/17/21 00:20: POC Glucose 213 H 10/17/21 00:30: Acetone Level Moderate 10/17/21 01:20: POC Glucose 174 H 10/17/21 02:08: POC Glucose 123 H 10/17/21 06:00: WBC 19.8 H D, RBC 4.56, Hct 36.7 L, MCV 80.6 L, MCH 28.7, MCHC 35.6 H, RDW 14.7, Plt Count 222 D, MPV 8.6, Neut % (Auto) 92.8 H, Lymph % (Auto) 2.7 L, [place] % (Auto) 4.3, Eos % (Auto) 0.1, Baso % (Auto) 0.1, Neut # (Auto) 18.4 H, Lymph # (Auto) 0.5 L, [place] # (Auto) 0.9, Eos # (Auto) 0.0, Baso # (Auto) 0.0, Total Counted 100, Neutrophils % (Manual) 96 H, Lymphocytes % (Manual) 2 L, M
[2021-10-17 09:27] LABS: Hemoglobin 13.1 g/dL (12.2-16.2); White Blood Count 20.5 K/mm3 (4.8-10.8)
[2021-10-17 11:56] LABS: POC Glucose,Bedside 158 (70-110)
[2021-10-17 11:56] LABS: POC Glucose,Bedside 149 (70-110)
[2021-10-17 11:56] LABS: POC Glucose,Bedside 131 (70-110)
[2021-10-17 12:14] LABS: Chloride 115 mmol/L (98-107)
[2021-10-17 12:15] LABS: Potassium 3.5 mmoL/L (3.5-5.1); Sodium 137 mmol/L (136-145)
[2021-10-17 12:17] LABS: Blood Urea Nitrogen 33 mg/dl (7-17); Creatinine Clearance Estimated 59 mL/min (50-200); Estimated Glomerular Filt Rate 52 ml/min (>60); GFR (African American) 63 ML/MIN (>60)
[2021-10-17 12:18] LABS: Anion Gap 13.5 mEq/L (5-15); Calcium 6.8 mg/dl (8.4-10.2); Carbon Dioxide 12 mmol/L (22.0-30.0); Glucose 210 mg/dl (74-100)
[2021-10-17 12:39] LABS: Acetone, Serum (Rapid) Moderate (None Detect)
[2021-10-17 14:20] LABS: POC Glucose,Bedside 183 (70-110)
[2021-10-17 14:20] LABS: POC Glucose,Bedside 232 (70-110)
[2021-10-17 14:20] LABS: POC Glucose,Bedside 210 (70-110)
[2021-10-17 14:20] LABS: POC Glucose,Bedside 182 (70-110)
--- NOTE | 2021-10-17 15:05 | PC.NURSE ---
No acute changes noted this shift, patient has rested quietly in bed today, this am was having frequent emesis, treated with phenergan with good results, no further vomiting noted, remains on insulin drip at 2units/hr, lung sounds cta, on RA, abd soft and nontender, hyperactive bowel sounds in all quads, FC patent and draining dark yellow urine at bedside, peripheral pulses intact, alert and oriented, no s/s of distress noted, will continue to monitor for changes.
--- NOTE | 2021-10-17 18:19 | PC.NURSE ---
0800- FSBG 182 insulin drip continues at 2units/hr 1000- FSBG 210 insulin drip continues at 2units/hr 1200- FSBG 183 insulin drip continues at 2units/hr, serum acetone moderate 1400- FSBG 232 insulin drip continues at 2units/hr 1600- FSBG 251 insulin drip continues at 2units/hr 1800- FSBG 282 insulin drip increased to 4units/hr, fluids changed to NS with 20K+ @150, awaiting results of BMP and serum acetone
[2021-10-17 18:31] LABS: Anion Gap 12.4 mEq/L (5-15); Blood Urea Nitrogen 30 mg/dl (7-17); Calcium 7.4 mg/dl (8.4-10.2); Carbon Dioxide 15 mmol/L (22.0-30.0); Chloride 115 mmol/L (98-107); Creatinine Clearance Estimated 63 mL/min (50-200); Estimated Glomerular Filt Rate 58 ml/min (>60); GFR (African American) 70 ML/MIN (>60); Glucose 294 mg/dl (74-100); Potassium 3.4 mmoL/L (3.5-5.1); Sodium 139 mmol/L (136-145)
[2021-10-17 18:42] LABS: Acetone, Serum (Rapid) Small (None Detect)
--- NOTE | 2021-10-17 20:22 | PC.NURSE ---
checked fsbs result was 200, stopped drip per protocol, will recheck another fsbs at 2200
[2021-10-17 20:25] LABS: POC Glucose,Bedside 200 (70-110)
--- NOTE | 2021-10-17 23:35 | PC.NURSE ---
lab notified RN that the preliminary results of blood cultures have come back and pt has staph most likely epidermis, but not staph aureus and results aren't final yet
[2021-10-18] VITALS (14 sets, daily range): BP systolic 120–148; BP diastolic 67–86; PULSE 80–111; RESP 13–22; TEMP 36.4–38; O2SAT 96–100; BMI 19.5
[2021-10-18 01:06] LABS: POC Glucose,Bedside 238 (70-110)
[2021-10-18 03:22] LABS: POC Glucose,Bedside 277 (70-110)
[2021-10-18 05:48] LABS: Basophils % 0.1 % (0.1-2.0); Eosinophils % 0.2 % (0.1-12.0); Hematocrit 31.1 % (37.0-47.0); Lymphocytes # 0.8 K/mm3 (0.7-4.5); Lymphocytes % 5.6 % (10-50); Mean Corpuscular HGB Conc 35.7 g/dL (31.8-35.4); Mean Corpuscular Hemoglobin 29.1 pg (27.0-31.2); Mean Corpuscular Volume 81.5 fl (81-99); Mean Platelet Volume 8.6 fl (7.4-10.4); Monocytes # 0.5 K/mm3 (0.1-1.0); Monocytes % 3.3 % (1.7-9.3); Neutrophils # 12.7 K/mm3 (1.8-7.8); Neutrophils % 90.9 % (37.0-80.0); Platelet Count 167 K/mm3 (142-424); Red Blood Count 3.81 M/mm3 (4.20-5.40); Red Cell Distribution Width 15.2 % (11.5-17.5)
[2021-10-18 05:51] LABS: Hemoglobin 11.1 g/dL (12.2-16.2)
[2021-10-18 05:53] LABS: MANUAL DIFFERENTIAL MANUAL DIFFERENTIAL (MANUAL DIFF)
[2021-10-18 06:16] LABS: Acetone, Serum (Rapid) Small (None Detect)
[2021-10-18 06:36] LABS: Creatinine Clearance Estimated 64 mL/min (50-200); Estimated Glomerular Filt Rate 58 ml/min (>60); GFR (African American) 70 ML/MIN (>60)
[2021-10-18 06:37] LABS: Lymphocytes % 8 % (10-50); Neutrophils % 87 % (42-76); Platelet Estimate Normal; RBC Morphology Normal; Total Cells Counted 100
[2021-10-18 06:40] LABS: Anion Gap 17.2 mEq/L (5-15); Blood Urea Nitrogen 20 mg/dl (7-17); Calcium 7.3 mg/dl (8.4-10.2); Carbon Dioxide 11 mmol/L (22.0-30.0); Chloride 111 mmol/L (98-107); Glucose 250 mg/dl (74-100); Potassium 3.2 mmoL/L (3.5-5.1); Sodium 136 mmol/L (136-145)
--- NOTE | 2021-10-18 08:22 | PC.NURSE ---
rounded with Dr. Bhatia. We reviewed acetone levels for last 24hrs, as well as AM labs. He ordered to restart Insulin gtt as pt is in DKA. Serial acetone and BMPs will be reordered. Dr. Bhatia to enter orders.
--- NOTE | 2021-10-18 08:38 | PC.NURSE ---
insulin gtt restarted @ 5units/hr. Will titrate gtt per insulin protocol.
[2021-10-18 09:02] LABS: POC Glucose,Bedside 276 (70-110)
[2021-10-18 09:05] LABS: POC Glucose,Bedside 251 (70-110)
[2021-10-18 09:05] LABS: POC Glucose,Bedside 180 (70-110)
[2021-10-18 09:05] LABS: POC Glucose,Bedside 282 (70-110)
[2021-10-18 10:03] LABS: POC Glucose,Bedside 126 (70-110)
--- NOTE | 2021-10-18 10:29 | HMH.ACPN2 ---
Internal Medicine - PN: Subj *Date: 10/18/21 *Time: 10:29 Interval history: some better but still nausea and dka Exam Vital signs and Labs for Last 24 Hours: Temp Pulse Resp BP Pulse Ox 98.9 F 88 22 135/80 99 10/18/21 08:00 10/18/21 06:00 10/18/21 06:00 10/18/21 06:00 10/18/21 06:00 Laboratory Results - last 24 hr 10/17/21 03:11: POC Glucose 131 H 10/17/21 04:12: POC Glucose 149 H 10/17/21 06:13: POC Glucose 158 H 10/17/21 08:27: POC Glucose 182 H 10/17/21 10:22: POC Glucose 210 H 10/17/21 11:49: POC Glucose 183 H 10/17/21 11:53: Sodium 137, Potassium 3.5, Chloride 115 H, Carbon Dioxide 12 L, Anion Gap 13.5, BUN 33 H, Creatinine 1.20 H, Estimated Creat Clear 59, Estimated GFR 52 L, Est GFR ( Amer) 63, Glucose 210 H D, Calcium 6.8 L, Acetone Level Moderate 10/17/21 14:13: POC Glucose 232 H 10/17/21 16:00: POC Glucose 251 H 10/17/21 17:51: POC Glucose 282 H 10/17/21 18:10: Sodium 139, Potassium 3.4 L, Chloride 115 H, Carbon Dioxide 15 L, Anion Gap 12.4, BUN 30 H, Creatinine 1.10 H, Estimated Creat Clear 63, Estimated GFR 58 L, Est GFR ( Amer) 70, Glucose 294 H D, Calcium 7.4 L 10/17/21 18:10: Acetone Level Small 10/17/21 20:15: POC Glucose 200 H 10/17/21 22:02: POC Glucose 238 H 10/18/21 03:15: POC Glucose 277 H 10/18/21 05:13: WBC 14.0 H D, RBC 3.81 L, Hgb 11.1 L D, Hct 31.1 L, MCV 81.5, MCH 29.1, MCHC 35.7 H, RDW 15.2, Plt Count 167, MPV 8.6, Neut % (Auto) 90.9 H, Lymph % (Auto) 5.6 L, [place] % (Auto) 3.3, Eos % (Auto) 0.2, Baso % (Auto) 0.1, Neut # (Auto) 12.7 H, Lymph # (Auto) 0.8, [place] # (Auto) 0.5, Eos # (Auto) 0.0, Baso # (Auto) 0.0, Total Counted 100, Neutrophils % (Manual) 87 H, Band Neutrophils % 5.0, Lymphocytes % (Manual) 8 L, Platelet Estimate Normal, RBC Morphology Normal 10/18/21 05:13: Acetone Level Small 10/18/21 05:13: Sodium 136, Potassium 3.2 L, Chloride 111 H, Carbon Dioxide 11 L, Anion Gap 17.2 H, BUN 20 H D, Creatinine 1.10 H, Estimated Creat Clear 64, Estimated GFR 58 L, Est GFR ( Amer) 70, Glucose 250 H, Calcium 7.3 L 10/18/21 06:21: POC Glucose 276 H 10/18/21 08:58: POC Glucose 180 H 10/18/21 09:57: POC Glucose 126 H I & O for Last 24 hours: Intake & Output 10/15/21 10/16/21 10/17/21 10/18/21 11:59 11:59 11:59 11:59 Intake Total 2120 / 2120 4371 / 4371 Output Total 1700 / 1700 2175 / 2175 Balance 420 / 420 2196 / 2196 Weight 109 lb 15.994 oz 120 lb 8 oz 121 lb 6 oz Microbiology Reports for the Last 24 Hours: Microbiology 10/16/21 13:00 Blood Blood Culture - Preliminary - Constitutional no acute distress - *Routine HEENT Exam Head: Present: normocephalic Eye: Present: EOMI, PERRL ENT: Present: mucous membranes dry - *Routine Neck Exam Absent: JVD - *Routine Respiratory Exam Present: CTA bilaterally - *Routine Cardiovascular Exam Present: RRR, murmur - *Routine Abdominal Exam Present: soft - *Routine Extremities Exam Absent: calf tenderness - *Routine Skin Exam Present: intact - *Routine Neurological Exam Present: alert, CN II-XII intact - Routine Psychiatric Exam Present: cooperative Assessment and Plan (1) DKA (diabetic ketoacidoses) Status: Acute Qualifiers: Diabetes mellitus type: type 1 Diabetes mellitus complication detail: with coma Qualified Code(s): E10.11 - Type 1 diabetes mellitus with ketoacidosis with coma Category: Medical Code(s): E13.10 - Other specified diabetes mellitus with ketoacidosis without coma (2) Hypothermia Status: Acute Qualifiers: Encounter type: initial encounter Qualified Code(s): T68.XXXA - Hypothermia, initial encounter Category: Medical Code(s): T68.XXXA - Hypothermia, initial encounter (3) Diabetes mellitus Status: Acute Qualifiers: Diabetes mellitus type: type 1 Diabetes mellitus complication status: with diabetic arthropathy Diabetes mellitus complication detail: with neuropathic arthropathy Qualified Code(s): E10.610 - Type
[2021-10-18 11:01] LABS: POC Glucose,Bedside 110 (70-110)
[2021-10-18 12:02] LABS: POC Glucose,Bedside 81 (70-110)
[2021-10-18 13:02] LABS: POC Glucose,Bedside 84 (70-110)
[2021-10-18 16:05] LABS: POC Glucose,Bedside 74 (70-110)
[2021-10-18 16:05] LABS: POC Glucose,Bedside 80 (70-110)
--- NOTE | 2021-10-18 18:00 | PC.NURSE ---
FSBS 64, K 3.0, small acetone and gap closed. Per insulin gtt protocol: Insulin gtt turned off (it was infusing @ 1unit/hr), NS+20K @ 150mL/hr switched to NS+40K @ 150mL/hr, and D5NS @ 75mL/hr added as additional maintenance fluids. Orders faxed to pharmacy.
[2021-10-18 18:41] LABS: POC Glucose,Bedside 64 (70-110)
[2021-10-18 18:48] LABS: Blood Urea Nitrogen 13 mg/dl (7-17); Calcium 7.5 mg/dl (8.4-10.2); Carbon Dioxide 19 mmol/L (22.0-30.0); Chloride 113 mmol/L (98-107); Creatinine Clearance Estimated 89 mL/min (50-200); Estimated Glomerular Filt Rate 84 ml/min (>60); GFR (African American) 101 ML/MIN (>60); Sodium 136 mmol/L (136-145)
[2021-10-18 18:50] LABS: Acetone, Serum (Rapid) Small (None Detect); Glucose 64 mg/dl (74-100)
[2021-10-18 19:50] LABS: POC Glucose,Bedside 119 (70-110)
--- NOTE | 2021-10-18 21:24 | PC.NURSE ---
pt's fsbs 186, restarted insulin drip at 1unit/hr
[2021-10-18 21:54] LABS: POC Glucose,Bedside 186 (70-110)
[2021-10-18 23:59] LABS: POC Glucose,Bedside 179 (70-110)
[2021-10-19] VITALS (14 sets, daily range): BP systolic 114–130; BP diastolic 74–99; PULSE 70–101; RESP 12–27; TEMP 37.1–37.4; O2SAT 96–100; BMI 20.7
--- NOTE | 2021-10-19 00:05 | PC.NURSE ---
pt's fsbs 179, increased insulin drip to 2units/hr
[2021-10-19 02:21] LABS: POC Glucose,Bedside 156 (70-110)
[2021-10-19 05:39] LABS: Basophils % 0.1 % (0.1-2.0); Eosinophils # 0.1 K/mm3 (0.0-0.4); Eosinophils % 0.8 % (0.1-12.0); Hemoglobin 9.9 g/dL (12.2-16.2); Lymphocytes % 22.5 % (10-50); Mean Corpuscular HGB Conc 35.8 g/dL (31.8-35.4); Mean Corpuscular Volume 80.8 fl (81-99); Mean Platelet Volume 8.4 fl (7.4-10.4); Monocytes # 0.4 K/mm3 (0.1-1.0); Monocytes % 4.3 % (1.7-9.3); Neutrophils # 6.5 K/mm3 (1.8-7.8); Neutrophils % 72.3 % (37.0-80.0); Platelet Count 132 K/mm3 (142-424)
[2021-10-19 05:40] LABS: Hematocrit 27.5 % (37.0-47.0)
--- NOTE | 2021-10-19 05:44 | PC.NURSE ---
pt's fsbs 243, increased insulin drip to 4units/hr
[2021-10-19 05:47] LABS: POC Glucose,Bedside 243 (70-110)
[2021-10-19 05:50] LABS: Anion Gap 6.3 mEq/L (5-15); Blood Urea Nitrogen 10 mg/dl (7-17); Carbon Dioxide 19 mmol/L (22.0-30.0); Chloride 114 mmol/L (98-107); Creatinine Clearance Estimated 118 mL/min (50-200); Estimated Glomerular Filt Rate 117 ml/min (>60); GFR (African American) 141 ML/MIN (>60); Potassium 3.3 mmoL/L (3.5-5.1); Sodium 136 mmol/L (136-145)
[2021-10-19 05:52] LABS: Acetone, Serum (Rapid) None Detected (None Detect)
[2021-10-19 05:53] LABS: Glucose 223 mg/dl (74-100)
[2021-10-19 08:22] LABS: POC Glucose,Bedside 142 (70-110)
[2021-10-19 09:56] LABS: POC Glucose,Bedside 170 (70-110)
--- NOTE | 2021-10-19 10:09 | PC.NURSE ---
rounded with Dr. Bhatia. Pt is no longer in DKA. Gap is closed, no acetone detected, and FSBS<200. She is feeling better overall and is starting to eat solids. No nausea or vomiting since yesterday. New orders received for the following: discontinue insulin gtt, start high intensity SSI, discontinue feldman catheter, discontinue all MIVFs, start D5NS+20K @ 100mL/hr.
--- NOTE | 2021-10-19 11:30 | HMH.ACPN2 ---
Internal Medicine - PN: Subj *Date: 10/20/21 *Time: 07:34 Interval history: look better and augie diet and acetone cleared Exam Vital signs and Labs for Last 24 Hours: Temp Pulse Resp BP Pulse Ox 98.9 F 101 H 17 114/85 98 10/19/21 11:15 10/19/21 08:00 10/19/21 08:00 10/19/21 08:00 10/19/21 08:00 Laboratory Results - last 24 hr 10/18/21 11:55: POC Glucose 81 10/18/21 12:55: POC Glucose 84 10/18/21 14:10: POC Glucose 80 10/18/21 15:59: POC Glucose 74 10/18/21 18:11: POC Glucose 64 L 10/18/21 18:15: Sodium 136, Potassium 3.0 L, Chloride 113 H, Carbon Dioxide 19 L, Anion Gap 7.0, BUN 13 D, Creatinine 0.80 D, Estimated Creat Clear 89, Estimated GFR 84, Est GFR ( Amer) 101 D, Glucose 64 L D, Calcium 7.5 L, Acetone Level Small 10/18/21 19:43: POC Glucose 119 H 10/18/21 21:15: POC Glucose 186 H 10/18/21 23:51: POC Glucose 179 H 10/19/21 02:03: POC Glucose 156 H 10/19/21 05:11: POC Glucose 243 H 10/19/21 05:30: WBC 9.0 D, RBC 3.40 L, Hgb 9.9 L, Hct 27.5 L, MCV 80.8 L, MCH 29.0, MCHC 35.8 H, RDW 15.0, Plt Count 132 L, MPV 8.4, Neut % (Auto) 72.3, Lymph % (Auto) 22.5, [place] % (Auto) 4.3, Eos % (Auto) 0.8, Baso % (Auto) 0.1, Neut # (Auto) 6.5, Lymph # (Auto) 2.0, [place] # (Auto) 0.4, Eos # (Auto) 0.1, Baso # (Auto) 0.0 10/19/21 05:30: Sodium 136, Potassium 3.3 L, Chloride 114 H, Carbon Dioxide 19 L, Anion Gap 6.3, BUN 10, Creatinine 0.60 D, Estimated Creat Clear 118, Estimated GFR 117, Est GFR ( Amer) 141 D, Glucose 223 H D, Calcium 7.0 L, Acetone Level None detected 10/19/21 08:12: POC Glucose 142 H 10/19/21 09:49: POC Glucose 170 H I & O for Last 24 hours: Intake & Output 10/16/21 10/17/21 10/18/21 10/19/21 11:59 11:59 11:59 11:59 Intake Total 2120 / 2120 4371 / 4371 8792 / 8792 Output Total 1700 / 1700 2175 / 2175 3750 / 3750 Balance 420 / 420 2196 / 2196 5042 / 5042 Weight 109 lb 15.994 oz 120 lb 8 oz 121 lb 6 oz 129 lb 3.2 oz Microbiology Reports for the Last 24 Hours: Microbiology 10/16/21 13:00 Blood Blood Culture - Preliminary NO GROWTH AFTER 48 HOURS - Constitutional no acute distress - *Routine HEENT Exam Head: Present: normocephalic Eye: Present: EOMI, PERRL ENT: Present: mucous membranes dry - *Routine Neck Exam Absent: JVD - *Routine Respiratory Exam Present: CTA bilaterally - *Routine Cardiovascular Exam Present: RRR - *Routine Abdominal Exam Present: soft - *Routine Extremities Exam Absent: calf tenderness - *Routine Skin Exam Present: intact - *Routine Neurological Exam Present: alert, CN II-XII intact - Routine Psychiatric Exam Present: normal affect Assessment and Plan (1) DKA (diabetic ketoacidoses) Status: Acute Qualifiers: Diabetes mellitus type: type 1 Diabetes mellitus complication detail: with coma Qualified Code(s): E10.11 - Type 1 diabetes mellitus with ketoacidosis with coma Category: Medical Code(s): E13.10 - Other specified diabetes mellitus with ketoacidosis without coma (2) Hypothermia Status: Acute Qualifiers: Encounter type: initial encounter Qualified Code(s): T68.XXXA - Hypothermia, initial encounter Category: Medical Code(s): T68.XXXA - Hypothermia, initial encounter (3) Diabetes mellitus Status: Acute Qualifiers: Diabetes mellitus type: type 1 Diabetes mellitus complication status: with diabetic arthropathy Diabetes mellitus complication detail: with neuropathic arthropathy Qualified Code(s): 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
[2021-10-19 11:42] LABS: POC Glucose,Bedside 221 (70-110)
[2021-10-19 16:39] LABS: POC Glucose,Bedside 265 (70-110)
[2021-10-19 21:13] LABS: POC Glucose,Bedside 224 (70-110)
[2021-10-20] VITALS: BP 128/88; PULSE 78; PULSE 89; RESP 13; O2SAT 99
[2021-10-20 02:00] VITALS: BP 115/74; PULSE 93; RESP 11; TEMP 37.2; O2SAT 100
[2021-10-20 04:00] VITALS: BP 118/72; PULSE 72; PULSE 76; RESP 15; O2SAT 99
[2021-10-20 05:00] VITALS: BMI 20.9
[2021-10-20 05:34] LABS: POC Glucose,Bedside 390 (70-110)
[2021-10-20 06:00] VITALS: BP 117/82; PULSE 66; RESP 16; TEMP 37.3; O2SAT 99
[2021-10-20 06:09] LABS: Basophils % 0.4 % (0.1-2.0); Eosinophils # 0.1 K/mm3 (0.0-0.4); Eosinophils % 0.8 % (0.1-12.0); Hematocrit 31.5 % (37.0-47.0); Hemoglobin 11.2 g/dL (12.2-16.2); Lymphocytes # 2.3 K/mm3 (0.7-4.5); Lymphocytes % 31.4 % (10-50); Mean Corpuscular HGB Conc 35.6 g/dL (31.8-35.4); Mean Corpuscular Volume 81.4 fl (81-99); Mean Platelet Volume 9.2 fl (7.4-10.4); Monocytes # 0.4 K/mm3 (0.1-1.0); Monocytes % 4.7 % (1.7-9.3); Neutrophils # 4.6 K/mm3 (1.8-7.8); Neutrophils % 62.6 % (37.0-80.0); Platelet Count 171 K/mm3 (142-424); Red Blood Count 3.87 M/mm3 (4.20-5.40); Red Cell Distribution Width 14.8 % (11.5-17.5); White Blood Count 7.4 K/mm3 (4.8-10.8)
[2021-10-20 06:35] LABS: Chloride 108 mmol/L (98-107)
[2021-10-20 06:36] LABS: Potassium 3.4 mmoL/L (3.5-5.1); Sodium 134 mmol/L (136-145)
[2021-10-20 06:38] LABS: Alanine Aminotransferase 26 U/L (12-78); Albumin Level 2.8 g/dl (3.5-5.0); Albumin/Globulin Ratio 1.3 (1.1-1.8); Alkaline Phosphatase 90 U/L (38-126); Anion Gap 6.4 mEq/L (5-15); Aspartate Amino Transferase 37 U/L (14-36); Bilirubin,Total 0.6 mg/dl (0.2-1.3); Blood Urea Nitrogen 5 mg/dl (7-17); Carbon Dioxide 23 mmol/L (22.0-30.0); Creatinine Clearance Estimated 109 mL/min (50-200); Estimated Glomerular Filt Rate 98 ml/min (>60); GFR (African American) 118 ML/MIN (>60); Globulin 2.1 g/dL (1.3-3.2); Glucose 350 mg/dl (74-100); Total Protein,Serum 4.9 g/dl (6.3-8.2)
[2021-10-20 08:00] VITALS: BP 112/85; PULSE 79; PULSE 88; PULSE 90; RESP 20; O2SAT 100
--- NOTE | 2021-10-20 09:35 | HMH.DCSUM ---
General - General Admission date:: 10/16/21 Discharge date: 10/20/21 HPI HPI: Patient is a 31-year-old white female, followed at our clinic, admitted through the emergency room in DKA. Patient has insulin requiring diabetes, has frequent issues with compliance, and was admitted earlier in the month with DKA. In the emergency room her mentation was altered, she was hypothermic. Her work-up included a CT of the brain which showed no acute change and a urine drug screen which showed presence of THC otherwise negative. Lab work also showed large amounts of acetone, weighted white count 35.6 a marked degree of acidosis and ABG pH of 6.70. She has low bicarb, and a gap of 30. Patient just arrived on the floor from the ER. Still very drowsy. An insulin drip is on board. Hospital Course Hospital Course: Abnormal Lab Results 10/19/21 09:49: POC Glucose 170 H 10/19/21 11:35: POC Glucose 221 H 10/19/21 16:33: POC Glucose 265 H 10/19/21 20:55: POC Glucose 224 H 10/20/21 05:23: POC Glucose 390 H* 10/20/21 05:25: RBC 3.87 L, Hgb 11.2 L D, Hct 31.5 L, MCHC 35.6 H 10/20/21 05:25: Sodium 134 L, Potassium 3.4 L, Chloride 108 H, BUN 5 L D, Glucose 350 H D, Calcium 7.0 L, AST 37 H, Total Protein 4.9 L D, Albumin 2.8 L Microbiology 10/16/21 13:00 Blood Blood Culture - Preliminary Staphylococcus epidermidis 10/16/21 13:00 Blood Blood Culture - Preliminary NO GROWTH AFTER 48 HOURS Ordering Physician: Wild England MD Date of Service: 10/16/21 Procedure(s): CT head/brain wo [facility] Accession Number(s): [id number] cc: Jeff Zamarripa APRN; Roman Kim MD; Wild England MD~ FINAL REPORT TECHNIQUE: Axial CT images were performed through the head. Coronal reformatted images were submitted. This study was performed with techniques to keep radiation doses as low as reasonably achievable (ALARA). Individualized dose reduction techniques using automated exposure control or adjustment of mA and/or kV according to the patient's size were employed. CLINICAL HISTORY: AMS FINDINGS: The head is asymmetrically positioned in the gantry. The ventricles are normal in size. There is no evidence of hemorrhage. There is no mass or edema identified. There is no abnormal extra-axial fluid seen. The sinuses are well aerated. IMPRESSION: No acute intracranial process. Discharge Plan (1) DKA (diabetic ketoacidoses)- serum acetone cleared 10/19/21 0530, will restart home insulin and discussed with pt the importance of taking all meds. pt states she becomes depressed no si or hi at times and quits taking all her meds. plus she has no way to get her meds or go to md appointments. (2) Hypothermia-vss (3) Diabetes mellitus- will restart home insulin pump, pt had not picked up insulin from pharm will have it brought to room prior to dc. (4) Anemia(5)- labs at baseline. (5) factor V- restart anticoagulants and arrange appointment with dr davalos, restart xarolto 20mg po daily long discussion with pt about importance in caring for self and taking all meds as ordered and follow up appointments. pt states she will keep appointments and take her meds as ordered Objective Vital signs: Temp Pulse Resp BP Pulse Ox 99.2 F 88 20 112/85 100 10/20/21 06:00 10/20/21 08:00 10/20/21 08:00 10/20/21 08:00 10/20/21 08:00 no acute distress - *Routine HEENT Exam Head: Present: normocephalic Eye: Present: PERRL ENT: Present: mucous membranes moist - *Routine Neck Exam Present: supple - *Routine Respiratory Exam Present: CTA bilaterally - *Routine Cardiovascular Exam Present: RRR - *Routine Abdominal Exam Present: soft, normoactive bowel sounds. Absent: tenderness - *Routine Extremities Exam Present: normal capillary refill. Absent: cyanosis, clubbing, edema - *Routine Skin Exam Present: warm. Absent: rash - *Routine Neurological Exam
--- NOTE | 2021-10-20 10:21 | HMH.PHAINT ---
Discharge counseling complete. Informed pt of new medication, purpose, how to take, and possible side effects. Also informed pt of medications to stop taking. 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
[2021-10-20 12:00] VITALS: PULSE 70
== END 2021-10-20 13:00 | disposition home or self-care (01) | DRG 638 ==
LOC: ER 15:05 → 2ND 17:28
PROVIDERS: Emergency Medicine; Nurse Practitioner Family; Admitting Provider Family Medicine; Emergency Provider Emergency Medicine; PCP Nurse Practitioner Family; Visit Provider Family Medicine
DX: E11.10 Type 2 diabetes mellitus with ketoacidosis without coma (principal); D68.51 Activated protein C resistance; Z79.4 Long term (current) use of insulin; R68.0 Hypothermia, not associated with low environmental temperature; D64.9 Anemia, unspecified; Z86.718 Personal history of other venous thrombosis and embolism; Z86.711 Personal history of pulmonary embolism; F32.A Depression, unspecified; F41.9 Anxiety disorder, unspecified; F17.210 Nicotine dependence, cigarettes, uncomplicated; Z20.822 Contact with and (suspected) exposure to COVID-19
CPT/HCPCS: 36556; 36415; 51702; 70450; 71045; 80048; 80053; 80305; 80329; 81001; 82009; 82803; 82962; 83605; 83735; 84100; 85007; 85025; 87040; 87077; 87186; 93005; 96365; 96366; 96367; 99285; C9803; J2405; U0003; U0005

== ENCOUNTER → 2022-06-17 13:29 | Outpatient (CLI) | payer OTHER, SELFPAY ==
[2022-06-17 18:54] LABS: Amphetamine/Metha Screen,Urine Negative ng/ml (<1000); Barbiturates Screen,Urine Negative ng/ml (<200)
[2022-06-17 18:55] LABS: Benzodiazepines Screen,Urine Negative ng/ml (<200)
[2022-06-17 18:56] LABS: Cannabinoid Screen,Urine Positive ng/ml (<50); Cocaine Screen,Urine Negative ng/ml (<300)
[2022-06-17 18:57] LABS: Methadone Screen,Urine Negative ng/ml (<300); Microalbumin < 6.000 mg/L (0-16.7); Opiate Screen,Urine Negative ng/ml (<300)
[2022-06-17 19:00] LABS: Phencyclidine Screen,Urine Negative ng/ml (<25)
[2022-06-17 20:59] LABS: Creatinine,Urine Random 32 mg/dL (Not Estab.)
== END ==
PROVIDERS: PCP Nurse Practitioner Family; Visit Provider Nurse Practitioner Family
DX: Z79.899 Other long term (current) drug therapy (principal)
CPT/HCPCS: 80305; 82043; 82570

== ENCOUNTER 2022-07-01 08:34 | Emergency (ER) | payer OTHER, SELFPAY ==
[2022-07-01 09:38] VITALS: BP 123/81; PULSE 79; RESP 16; TEMP 36.9; O2SAT 99; BMI 19.9
--- NOTE | 2022-07-01 09:42 | EXP.UTC ---
Discharge Plan Disposition Patient Disposition: Home, Self-Care Condition: Good Prescriptions Prescriptions: New azithromycin [Zithromax] 250 mg tablet 250 mg PO UD DOSE PK Qty: 6 0RF Rx Instructions: Take two (2) tablets today, then one (1) tablet days #2 thru #5 [id number] [Bromfed DM] 2-30-10 mg/5 mL Syrup 5 ml PO Q6H PRN (Reason: Cough) Qty: 240 0RF No Action Premarin 0.625 mg/gram cream 0.625 mg VAGINAL HS Qty: 30 11RF ondansetron 4 mg tablet,disintegrating 4 mg PO Q8H PRN (Reason: nausea and vomiting) Qty: 30 0RF benzonatate 100 mg capsule 100 mg PO TID PRN (Reason: cough) Qty: 30 0RF Humulin R Regular U-100 Insuln 100 unit/mL solution 1 sliding scale dose SQ ACHS Qty: 10 2RF Rx Instructions: 70-150=0 151-200=8 units 201-250=12 units 251-300= 16 units 301-350= 20 units 351-400= 24 units >400 = 28 units (DME) insulin syringe-needle U-100 [BD Insulin Syringe] 1 mL 28 gauge x 1/2 syringe See Rx Instructions .Route Qty: 100 2RF Rx Instructions: As directed (DME) Blood Glucose Test Strip See Rx Instructions .Route Qty: 50 4RF Rx Instructions: ACHS insulin glargine [Lantus Solostar U-100 Insulin] 100 unit/mL (3 mL) insulin pen 15 unit SQ DAILY Qty: 15 3RF promethazine 25 mg tablet 25 mg PO TID PRN (Reason: nausea and vomiting) Qty: 20 0RF ubrogepant 100 mg tablet 100 mg PO NEEDED PRN (Reason: Migraine Headache) Qty: 10 0RF gabapentin 400 mg capsule 400 mg PO TID Qty: 90 2RF cholecalciferol (vitamin D3) 1,250 mcg (50,000 unit) capsule 50,000 unit PO WEEKLY Qty: 30 2RF citalopram 20 mg tablet 20 mg PO DAILY trazodone 50 mg tablet 50 mg PO HS albuterol sulfate 8.5 GM HFA aerosol inhaler 1 puff INHALATION Q6H PRN (Reason: Shortness Of Breath Or Wheezing) albuterol sulfate 0.63 MG/3 ML solution for nebulization 0.63 mg INHALATION Q6H PRN (Reason: Shortness Of Breath Or Wheezing) rivaroxaban 20 MG tablet 20 mg PO DAILY 30 Days Qty: 30 2RF melatonin 5 MG capsule 5 mg PO HS buprenorphine-naloxone 1 EACH tablet, sublingual 2 tab SL DAILY Referrals Follow up/Referrals: Jeff Zamarripa APRN [Primary Care Provider] - See instructions Activity Restrictions/Add. Instructions Additional Instructions/Restrictions: Drink plenty of fluids. Take tylenol or ibuprofen for pain or fever. Take the medications as directed. Follow up with your regular doctor. GO TO THE ER FOR ANY WORSENING SYMPTOMS Clinical Impressions Clinical Impression: Pharyngitis, Bronchitis Stand Alone Forms Stand Alone Forms: Work/School Release Instructions Patient Instructions: DI for Pharyngitis/Tonsillopharyngitis -- Adult, DI for Viral Syndrome Discharge ED Provider: Bobo Chase [facility] HPI General Stated complaint: sore throat, VIERA, Lt ear pain, cough, nausea Mode of Arrival: Ambulatory Source of Information: Patient Limitations: No Limitations Time Seen by Provider: 07/01/22 09:42 Description of Symptoms (Recalled from Triage Doc. by RN): pt comes in with c/o sore throat, cough, headache, nausea, body aches, ear pain. symptoms began yesterday HEENT Symptoms (Recalled from RN notes): Yes Resp Symptoms (Recalled from RN notes): Yes Skin Symptoms (Recalled from RN notes): No MS Symptoms (Recalled from RN notes): No Functional Status (Recalled from RN notes): n/a History of Present Illness Provider Complaint: She c/o headache, chills, and sore throat since yesterday. She is a type 1 diabetic. Related Data Home Medications Medication Instructions Recorded Confirmed melatonin 5 mg capsule 5 mg PO HS Insomnia 09/24/21 06/17/22 buprenorphine 8 mg-naloxone 2 mg 2 tab sublingual DAILY addiction 10/04/21 06/17/22 sublingual tablet citalopram 20 mg tablet 20 mg PO DAILY Depression 10/10/21 06/17/22 trazodone 50 mg tablet 50 mg PO HS SLEEP 09/23
[2022-07-01 09:44] LABS: UTC Influenza A Antigen Negative (Negative); UTC Strep Screen (Rapid) Negative (Negative)
[2022-07-01 09:45] LABS: UTC Influenza B Antigen Negative (Negative)
[2022-07-01 10:39] VITALS: BP 123/81; PULSE 79; RESP 16; TEMP 36.9
[2022-07-01 10:53] LABS: Adenovirus,PCR Not Detected (NotDetected); Bordetella Pertussis Not Detected (NotDetected); Chlamydophila Pneumoniae, PCR Not Detected (NotDetected); Coronavirus 19, PCR Not Detected (NotDetected); Coronavirus 229E Not Detected (NotDetected); Coronavirus NL63 Not Detected (NotDetected); Coronavirus OC43 Not Detected (NotDetected); Coronovirus HKU1,PCR Not Detected (NotDetected); Human Metapneumovirus Not Detected (NotDetected); Influenza A, PCR Not Detected (NotDetected); Influenza AH1, 2009 Not Detected (NotDetected); Influenza AH1, PCR Not Detected (NotDetected); Influenza AH3,PCR Not Detected (NotDetected); Influenza B, PCR Not Detected (NotDetected); Mycoplasma Pneumoniae, PCR Not Detected (NotDetected); Parainfluenza 1, PCR Not Detected (NotDetected); Parainfluenza 2, PCR Not Detected (NotDetected); Parainfluenza 3, PCR Not Detected (NotDetected); Parainfluenza 4, PCR Not Detected (NotDetected); Respiratory Syncytial Virus Not Detected (NotDetected)
[2022-07-01 21:04] LABS: Rhinovirus/Enterovirus Detected (NotDetected)
== END 2022-07-01 10:40 | disposition home or self-care (01) ==
PROVIDERS: Emergency Provider Nurse Practitioner Family; PCP Nurse Practitioner Family
DX: J20.6 Acute bronchitis due to rhinovirus (principal)
CPT/HCPCS: 87581; 87632; 87798; 87804; 87880; 99212; C9803; G0463; U0003; U0005

== ENCOUNTER → 2022-09-16 16:35 | Outpatient (CLI) | payer OTHER, SELFPAY | PROVIDERS: PCP Nurse Practitioner Family; Visit Provider Nurse Practitioner Family | DX: N39.0 Urinary tract infection, site not specified (principal) | CPT/HCPCS: 87086 ==

== ENCOUNTER 2023-07-05 16:58 | Emergency (ER) | payer OTHER, SELFPAY ==
[2023-07-05 17:08] VITALS: BP 129/92; PULSE 101; RESP 18; TEMP 36.9; O2SAT 96; BMI 19.5
--- NOTE | 2023-07-05 17:21 | HMH.EDGENADL ---
Discharge Plan Disposition Patient Disposition: Home, Self-Care Chief Complaint: Upper Respiratory Infection Prescriptions Prescriptions: No Action Humulin R Regular U-100 Insuln 100 unit/mL solution 1 sliding scale dose SQ ACHS Qty: 10 2RF Rx Instructions: 70-150=0 151-200=8 units 201-250=12 units 251-300= 16 units 301-350= 20 units 351-400= 24 units >400 = 28 units (DME) insulin syringe-needle U-100 [BD Insulin Syringe] 1 mL 28 gauge x 1/2 syringe See Rx Instructions .Route Qty: 100 2RF Rx Instructions: As directed (DME) Blood Glucose Test Strip See Rx Instructions .Route Qty: 50 4RF Rx Instructions: ACHS insulin glargine [Lantus Solostar U-100 Insulin] 100 unit/mL (3 mL) insulin pen 15 unit SQ DAILY Qty: 15 3RF ubrogepant 100 mg tablet 100 mg PO NEEDED PRN (Reason: Migraine Headache) Qty: 10 0RF cholecalciferol (vitamin D3) 1,250 mcg (50,000 unit) capsule 50,000 unit PO WEEKLY Qty: 30 2RF gabapentin 400 mg capsule 400 mg PO TID Qty: 90 2RF trazodone 50 mg tablet 50 mg PO HS ondansetron 4 mg tablet,disintegrating 4 mg PO Q8H PRN (Reason: nausea and vomiting) Qty: 30 0RF metronidazole 500 mg tablet 500 mg PO BID Qty: 14 0RF albuterol sulfate 90 mcg/actuation HFA aerosol inhaler See Rx Instructions .ROUTE .COMPLEX Qty: 18 5RF Dose Instruction: INHALE ONE TO TWO PUFF(S) BY MOUTH EVERY 4-6 HOURS NEEDED FOR COUGH OR WHEEZE * SHAKE WELL BEFORE USE * Rx Instructions: INHALE ONE TO TWO PUFF(S) BY MOUTH EVERY 4-6 HOURS NEEDED FOR COUGH OR WHEEZE * SHAKE WELL BEFORE USE * citalopram 20 mg tablet See Rx Instructions .ROUTE .COMPLEX Qty: 90 2RF Dose Instruction: TAKE ONE TABLET BY MOUTH EVERY DAY FOR depression Rx Instructions: TAKE ONE TABLET BY MOUTH EVERY DAY FOR depression albuterol sulfate 0.63 MG/3 ML solution for nebulization 0.63 mg INHALATION Q6H PRN (Reason: Shortness Of Breath Or Wheezing) rivaroxaban 20 MG tablet 20 mg PO DAILY 30 Days Qty: 30 2RF melatonin 5 MG capsule 5 mg PO HS buprenorphine-naloxone 1 EACH tablet, sublingual 2 tab SL DAILY Referrals Follow up/Referrals: Jeff Zamarripa APRN [Primary Care Provider] - See instructions Activity Restrictions/Add. Instructions Additional Instructions/Restrictions: At this time it was felt you are safe to be discharged home. If new or worsening symptoms please do not hesitate to return the emergency department. If symptoms persist please follow-up with your family doctor as you are able. Clinical Impressions Clinical Impression: Pharyngitis Discharge ED Provider: Librado Bhakta General Adult HPI General Chief complaint: Upper Respiratory Infection Stated complaint: COUGHING, HEADACHE, THROAT HURTS Time Seen by Provider: 07/05/23 17:10 History of Present Illness HPI narrative: Patient is a 33-year-old female past medical history of insulin-dependent diabetes who presents emergency department for evaluation of sore throat, bifrontal headache, diffuse body aches. Onset was acute, over the last 3 days. Patient's sugar has been running 300-400 at home. No other acute complaints at this time. Related Data Home Medications Medication Instructions Recorded Confirmed melatonin 5 mg capsule 5 mg PO HS Insomnia 09/24/21 12/11/22 buprenorphine 8 mg-naloxone 2 mg 2 tab sublingual DAILY addiction 10/04/21 12/11/22 sublingual tablet trazodone 50 mg tablet 50 mg PO HS SLEEP 10/10/21 12/11/22 albuterol sulfate 0.63 mg/3 mL 0.63 mg inhalation Q6H PRN 10/17/21 12/11/22 solution for nebulization Shortness Of Breath Or Wheezing Previous Rx's Medication Instructions Recorded rivaroxaban 20 mg tablet 20 mg PO DAILY 30 days #30 tabs 10/20/21 blood sugar diagnostic (Blood #50 ea 02/13/22 Glucose Test strips) insulin regular human 100 unit/mL 1 sliding scale dose SQ ACHS #10 mL 02/13/22 in
[2023-07-05 17:26] LABS: Coronavirus 19, PCR Not Detected (NotDetected); Influenza A, PCR Not Detected (NotDetected); Influenza B, PCR Not Detected (NotDetected)
[2023-07-05 17:43] LABS: Strep Scrn Group A (Rapid) Negative (Negative)
[2023-07-05 17:52] LABS: Basophils # 0.1 K/mm3 (0-0.2); Basophils % 0.5 % (0.1-2.0); Eosinophils # 0.2 K/mm3 (0.0-0.4); Eosinophils % 1.6 % (0.1-12.0); Hematocrit 43.4 % (37.0-47.0); Hemoglobin 14.8 g/dL (12.2-16.2); Lymphocytes # 1.9 K/mm3 (0.7-4.5); Lymphocytes % 20.9 % (10-50); Mean Corpuscular HGB Conc 34.1 g/dL (31.8-35.4); Mean Platelet Volume 9.1 fl (7.4-10.4); Monocytes # 0.4 K/mm3 (0.1-1.0); Monocytes % 4.6 % (1.7-9.3); Neutrophils # 6.6 K/mm3 (1.8-7.8); Neutrophils % 72.4 % (37.0-80.0); Platelet Count 255 K/mm3 (142-424); Red Blood Count 5.11 M/mm3 (4.20-5.40); White Blood Count 9.1 K/mm3 (4.8-10.8)
[2023-07-05 17:53] LABS: Chloride 102 mmol/L (98-107); Potassium 3.9 mmoL/L (3.5-5.1); Sodium 134 mmol/L (136-145)
[2023-07-05 17:56] LABS: Albumin Level 4.1 g/dl (3.5-5.0); Albumin/Globulin Ratio 1.7 (1.1-1.8); Alkaline Phosphatase 84 U/L (38-126); Anion Gap 5.9 mEq/L (5-15); Bilirubin,Total 0.4 mg/dl (0.2-1.3); Blood Urea Nitrogen 12 mg/dl (7-17); Calcium 8.6 mg/dl (8.4-10.2); Carbon Dioxide 30 mmol/L (22.0-30.0); Creatinine Clearance Estimated 119 mL/min (50-200); Estimated Glomerular Filt Rate 115 ml/min (>60); GFR (African American) 139 ML/MIN (>60); Globulin 2.4 g/dL (1.3-3.2); Glucose 172 mg/dl (74-100); Total Protein,Serum 6.5 g/dl (6.3-8.2)
[2023-07-05 18:01] LABS: Alanine Aminotransferase 26 U/L (12-78); Aspartate Amino Transferase 43 U/L (14-36)
[2023-07-05 18:08] LABS: Acetone, Serum (Rapid) None Detected (None Detect)
[2023-07-05 18:12] LABS: HCG Qualitative, Serum Negative (Negative)
[2023-07-05 18:25] LABS: VBG Base Excess -2.1 mmol/L (-2.4-2.3); VBG HCO3 23.2 mmol/L (23-30); VBG Oxygen Saturation 83.2 % (50-70); VBG PCO2 41.5 mmol/L (35-51); VBG PH 7.37 mmol/L (7.31-7.41); VBG PO2 43.5 mmol/L (28-40); VBG Total CO2 24.5 mmol/L (23-27)
[2023-07-05 18:56] VITALS: BP 101/58; PULSE 74; RESP 18; TEMP 36.7; O2SAT 99
--- NOTE | 2023-07-10 16:07 | PC.NURSE ---
f/u call made to pt r/t strep swab confirmation culture. Pt reports continues to have sore throat. Notified Dr. Colon, who gave verbal order for dionna for pt. Prescription called in to [facility] in [place] per pt request.
== END 2023-07-05 18:57 | disposition home or self-care (01) ==
PROVIDERS: Emergency Provider Emergency Medicine; PCP Nurse Practitioner Family
DX: R07.0 Pain in throat (principal); R51.9 Headache, unspecified; J02.9 Acute pharyngitis, unspecified; E11.9 Type 2 diabetes mellitus without complications; Z79.4 Long term (current) use of insulin; Z87.891 Personal history of nicotine dependence
CPT/HCPCS: 80053; 82009; 82803; 83605; 84703; 85025; 87430; 87636; 96360; 96361; 96374; 96375; 99285; J0131